=== PATIENT | male | born 1970 | race Caucasian/White ===

== ENCOUNTER 2016-08-31 16:03 | Inpatient (IN) | payer MEDICARE, MEDICAID ==
[~2016-08-31] VITALS: Ht 182.9 cm; Wt 94.6 kg
[~2016-08-31 16:03] MED LIST: METF500T4 PO; METO25 PO; OLAN5Z PO
[2016-08-31] MEDS ORDERED: OLANZapine 5 MG RAPDIS TABLET PO PRN (18:00)
[2016-08-31] MEDS ORDERED: LOPERAMIDE HCL 2 MG CAPSULE PO PRN (18:00)
[2016-08-31] MEDS ORDERED: MAGNESIUM HYDROXIDE SUSPENSION 30 ML UDCUP PO PRN (18:00)
[2016-08-31] MEDS ORDERED: ZOLPIDEM TARTRATE 10 MG TABLET PO PRN (18:00)
[2016-08-31] MEDS ORDERED: MAG HYDROX/AL HYDROX/SIMETH ES 30 ML SUSPENSION UDCUP PO PRN (18:00)
[2016-08-31] MEDS ORDERED: GuaiFENesin/D-METHORPHAN [SUGAR-FREE] 200-20MG/10 ML SYRUP UDCUP PO PRN (18:00)
[2016-08-31] MEDS ORDERED: HydrOXYzine PAMOATE 50 MG CAPSULE PO PRN (18:00)
[2016-08-31] MEDS ORDERED: PROMETHAZINE HCL 25 MG TABLET PO PRN (18:00)
[2016-08-31] MEDS ORDERED: ACETAMINOPHEN 325 MG TABLET PO PRN (18:00)
[2016-08-31] MEDS ORDERED: TUBERCULIN, PURIFIED PROTEIN DERIVATIVE 5 TU/0.1 ML SYG ID ONE (18:00)
[2016-08-31] MEDS ORDERED: PNEUMOCOCCAL VACCINE POLYVALENT 0.5 ML VIAL [PPSV23] IM ONE (18:15)
[2016-08-31] MEDS ORDERED: INFLUENZA VIRUS VACCINE QVS 2016-17 (3YR+)/PF 60 MCG/0.5 ML SYRINGE IM ONE (18:15)
[2016-08-31 19:30] VITALS: BP 111/70
[2016-08-31] MEDS: THIAMINE HCL 100 MG TABLET PO SCH (20:27)
[2016-08-31] MEDS ORDERED: OLANZapine 5 MG RAPDIS TABLET PO SCH (21:00)
[2016-09-01 08:04] LABS: BASOPHILS # (AUTO) 0.04 K/uL (0.00-0.20); BASOPHILS % (AUTO) 1.2 % (0.0-2.0); EOSINOPHILS # (AUTO) 0.12 K/uL (0.00-0.70); EOSINOPHILS % (AUTO) 3.31 % (1.0-6.0); HEMATOCRIT 43.4 % (41-53); HEMOGLOBIN 14.4 g/dL (13.5-17.5); LYMPHOCYTES # (AUTO) 1.8 K/uL (1.0-4.8); LYMPHOCYTES % (AUTO) 50.4 % (22.0-44.0); MEAN CORPUSCULAR HEMOGLOBIN 28.8 pg (26.0-34.0); MEAN CORPUSCULAR HGB CONC 33.1 G/dL (31.0-37.0); MEAN CORPUSCULAR VOLUME 87 fL (80-100); MONOCYTES # (AUTO) 0.5 K/uL (0.1-1.0); MONOCYTES % (AUTO) 13.8 % (2.0-9.0); NEUTROPHILS # (AUTO) 1.1 K/uL (1.8-7.7); NEUTROPHILS % (AUTO) 31.3 % (40.0-70.0); PLATELET COUNT (AUTO) 224 K/uL (150-450); WHITE BLOOD COUNT (AUTO) 3.5 K/uL (4.5-11.0)
[2016-09-01 08:11] VITALS: BP 135/70
[2016-09-01 08:40] LABS: HEMOGLOBIN A1C 5.4 % (4.5-6.2)
[2016-09-01 08:50] LABS: ALANINE AMINOTRANSFERASE 18 U/L (12-78); ANION GAP 9 mmol/L (8-16); ASPARTATE AMINOTRANSFERASE 15 U/L (15-37); BILIRUBIN,TOTAL 0.5 mg/dL (0.1-1.0); CALCIUM, TOTAL 8.9 mg/dL (8.8-10.5); CARBON DIOXIDE 28 mmol/L (22-29); CHLORIDE 104 mmol/L (98-107); CHOL/HDL RATIO 2.2 (4.2-7.3); CREATININE 0.75 mg/dL (0.60-1.30); GLOMERULAR FILTR. RATE CALC > 60 mL/min (>60); POTASSIUM 3.9 mmol/L (3.5-5.1); SODIUM SERUM 141 mmol/L (136-145); THYROID STIMULATING HORMONE 0.65 uIU/mL (0.36-3.74); UREA NITROGEN, BLOOD 13 mg/dL (7-18)
[2016-09-01] MEDS: MULTIVITAMINS WITH MINERALS, THERAPEUTIC TABLET PO SCH (10:12)
[2016-09-01] MEDS: NICOTINE 21 MG/24 HOUR PATCH TD SCH (10:12)
[2016-09-01] MEDS: FOLIC ACID 1 MG TABLET PO SCH (10:12)
[2016-09-01] MEDS: THIAMINE HCL 100 MG TABLET PO SCH ×2 (10:12→16:43)
[2016-09-01] MEDS: LORazepam 2 MG TABLET PO PRN (14:37)
[2016-09-01] MEDS ORDERED: ARIPiprazole ER SUSPENSION 400 MG PRE-FILLED DUAL CHAMBER SYRINGE IM ONE (15:45)
[2016-09-01] MEDS ORDERED: ARIPiprazole 5 MG TABLET PO PRN (15:45)
[2016-09-01 16:03] VITALS: BP 135/65
[2016-09-01 16:41] LABS: GLUCOSE,POINT OF CARE 113 MG/DL (70-110)
[2016-09-01] MEDS: DIVALPROEX SODIUM 500 MG ER TABLET PO SCH (20:36)
[2016-09-01] MEDS: ARIPiprazole 15 MG TABLET PO SCH (20:36)
[2016-09-02 00:46] VITALS: BP 140/68
[2016-09-02] MEDS: THIAMINE HCL 100 MG TABLET PO SCH ×2 (08:30→16:25)
[2016-09-02] MEDS: NICOTINE 21 MG/24 HOUR PATCH TD SCH (08:30)
[2016-09-02] MEDS: FOLIC ACID 1 MG TABLET PO SCH (08:30)
[2016-09-02] MEDS: MULTIVITAMINS WITH MINERALS, THERAPEUTIC TABLET PO SCH (08:30)
[2016-09-02 08:55] VITALS: BP 144/79
[2016-09-02] MEDS: LORazepam 2 MG TABLET PO PRN (13:49)
[2016-09-02 16:03] VITALS: BP 138/70
[2016-09-02] MEDS: DIVALPROEX SODIUM 500 MG ER TABLET PO SCH (20:55)
[2016-09-02] MEDS: ARIPiprazole 15 MG TABLET PO SCH (20:55)
[2016-09-03 01:18] VITALS: BP 137/81
[2016-09-03 08:08] VITALS: BP 169/81
[2016-09-03] MEDS: LORazepam 2 MG TABLET PO PRN (08:49)
[2016-09-03] MEDS: MULTIVITAMINS WITH MINERALS, THERAPEUTIC TABLET PO SCH (08:49)
[2016-09-03] MEDS: THIAMINE HCL 100 MG TABLET PO SCH (08:49)
[2016-09-03] MEDS: FOLIC ACID 1 MG TABLET PO SCH (08:49)
[2016-09-03] MEDS: NICOTINE 21 MG/24 HOUR PATCH TD SCH (08:50)
[2016-09-03 10:32] VITALS: BP 142/67
[2016-09-03] MEDS ORDERED: ARIP400S3 IM (13:36)
[2016-09-03] MEDS ORDERED: ARIP15TA3 PO ×2 (13:36→13:53)
[2016-09-03] MEDS ORDERED: DIVA500T52 PO ×2 (13:36→13:53)
[2016-09-29] MEDS ORDERED: ARIPiprazole ER SUSPENSION 400 MG PRE-FILLED DUAL CHAMBER SYRINGE IM SCH (09:00)
== END 2016-09-03 14:20 | disposition home or self-care (01) | DRG 885 ==
LOC: B2X 18:04
PROVIDERS: ADMIT Psychiatry & Neurology Psychiatry; ATTEND Psychiatry & Neurology Psychiatry
DX: F20.0 Paranoid schizophrenia (principal); F17.210 Nicotine dependence, cigarettes, uncomplicated; J44.9 Chronic obstructive pulmonary disease, unspecified; I10 Essential (primary) hypertension; E11.9 Type 2 diabetes mellitus without complications; E66.9 Obesity, unspecified; F15.10 Other stimulant abuse, uncomplicated; K59.00 Constipation, unspecified; G47.00 Insomnia, unspecified; F12.90 Cannabis use, unspecified, uncomplicated; Z68.28 Body mass index [BMI] 28.0-28.9, adult; Z72.89 Other problems related to lifestyle; Z88.8 Allergy status to other drugs, medicaments and biological substances; Z91.19 Patient's noncompliance with other medical treatment and regimen; Z71.6 Tobacco abuse counseling; Z71.51 Drug abuse counseling and surveillance of drug abuser; Z71.41 Alcohol abuse counseling and surveillance of alcoholic; Z79.899 Other long term (current) drug therapy; Z28.21 Immunization not carried out because of patient refusal
CPT/HCPCS: 82962; 83036; 84439; 84443; 86592; J0401

== ENCOUNTER 2016-12-07 19:45 | Inpatient (IN) | payer MEDICARE, MEDICAID ==
[~2016-12-07] VITALS: Ht 182.9 cm; Wt 93.0 kg
[~2016-12-07 19:45] MED LIST changes: +ARIP15TA3 PO; +ARIP400S3 IM; +DIVA500T52 PO; -METF500T4 PO; -METO25 PO; -OLAN5Z PO
[2016-12-07 20:44] LABS: BASOPHILS % (AUTO) 0.4 % (0.0-2.0); EOSINOPHILS % (AUTO) 2.4 % (1.0-6.0); HEMATOCRIT 43.3 % (41-53); LYMPHOCYTES # (AUTO) 2.7 K/uL (1.0-4.8); LYMPHOCYTES % (AUTO) 31.7 % (22.0-44.0); MEAN CORPUSCULAR HEMOGLOBIN 28.8 pg (26.0-34.0); MEAN CORPUSCULAR HGB CONC 32.3 G/dL (31.0-37.0); MEAN CORPUSCULAR VOLUME 89 fL (80-100); MONOCYTES # (AUTO) 0.7 K/uL (0.1-1.0); MONOCYTES % (AUTO) 7.8 % (2.0-9.0); NEUTROPHILS % (AUTO) 57.7 % (40.0-70.0); PLATELET COUNT (AUTO) 240 K/uL (150-450); RED BLOOD CELL COUNT(AUTO) 4.86 MIL/uL (4.50-5.90); RED CELL DISTRIBUTION WIDTH 15.7 % (11.5-14.5); WHITE BLOOD COUNT (AUTO) 8.6 K/uL (4.5-11.0)
[2016-12-07 20:54] LABS: ANION GAP 5 mmol/L (8-16); CALCIUM, TOTAL 8.8 mg/dL (8.8-10.5); CARBON DIOXIDE 30 mmol/L (22-29); CHLORIDE 105 mmol/L (98-107); CREATININE 0.98 mg/dL (0.60-1.30); GLOMERULAR FILTR. RATE CALC > 60 mL/min (>60); POTASSIUM 4.4 mmol/L (3.5-5.1); SODIUM SERUM 140 mmol/L (136-145); UREA NITROGEN, BLOOD 11 mg/dL (7-18)
[2016-12-07 21:00] LABS: ALANINE AMINOTRANSFERASE 23 U/L (12-78); ALBUMIN 3.5 g/dL (3.4-5.0); ASPARTATE AMINOTRANSFERASE 18 U/L (15-37); BILIRUBIN,TOTAL 0.3 mg/dL (0.1-1.0); TOTAL PROTEIN, SERUM 7.6 g/dL (6.4-8.2)
[2016-12-07] MEDS ORDERED: PERMETHRIN 5% 60 GM CREAM TP ONE (21:45)
[2016-12-07] MEDS ORDERED: OLANZapine 5 MG RAPDIS TABLET PO PRN (22:00)
[2016-12-07] MEDS ORDERED: LORazepam 2 MG TABLET PO PRN (22:00)
[2016-12-07] MEDS ORDERED: ZOLPIDEM TARTRATE 10 MG TABLET PO PRN (22:00)
[2016-12-07 22:37] LABS: GLUCOSE,POINT OF CARE 101 MG/DL (70-110)
[2016-12-07 22:40] VITALS: BP 148/77
[2016-12-07] MEDS ORDERED: PNEUMOCOCCAL VACCINE POLYVALENT 0.5 ML VIAL [PPSV23] IM ONE (23:00)
[2016-12-08] MEDS ORDERED: ONDANSETRON HCL 4 MG TABLET PO PRN (08:00)
[2016-12-08] MEDS ORDERED: ALBUTEROL SULFATE HFA 90 MCG/PUFF 8 GM INHALER IH PRN (08:00)
[2016-12-08] MEDS ORDERED: PETROLATUM,WHITE 71 GM JELLY TP PRN (08:00)
[2016-12-08] MEDS ORDERED: BENZOCAINE/MENTHOL LOZENGE MM PRN (08:00)
[2016-12-08] MEDS ORDERED: IBUPROFEN 600 MG TABLET PO PRN (08:00)
[2016-12-08] MEDS ORDERED: MAG HYDROX/AL HYDROX/SIMETH ES 30 ML SUSPENSION UDCUP PO PRN (08:00)
[2016-12-08] MEDS ORDERED: MAGNESIUM HYDROXIDE SUSPENSION 30 ML UDCUP PO PRN (08:00)
[2016-12-08] MEDS ORDERED: CloNIDine HCL 0.1 MG TABLET PO PRN (08:00)
[2016-12-08] MEDS ORDERED: LOPERAMIDE HCL 2 MG CAPSULE PO PRN (08:00)
[2016-12-08] MEDS ORDERED: BACITRACIN 28.4 GM OINTMENT TP PRN (08:00)
[2016-12-08] MEDS ORDERED: ACETAMINOPHEN 325 MG TABLET PO PRN (08:00)
[2016-12-08 08:28] VITALS: BP 135/78
[2016-12-08] MEDS ORDERED: GuaiFENesin/D-METHORPHAN [SUGAR-FREE] 200-20MG/10 ML SYRUP UDCUP PO PRN (09:30)
[2016-12-08] MEDS ORDERED: HydrOXYzine PAMOATE 50 MG CAPSULE PO PRN (09:30)
[2016-12-08 16:10] VITALS: BP 138/83
[2016-12-08] MEDS: THIAMINE HCL 100 MG TABLET PO SCH (16:48)
[2016-12-08] MEDS ORDERED: ARIPiprazole 15 MG TABLET PO SCH (21:00)
[2016-12-08] MEDS ORDERED: DIVALPROEX SODIUM 500 MG ER TABLET PO SCH (21:00)
[2016-12-09 06:02] VITALS: BP 146/70
[2016-12-09] MEDS: THIAMINE HCL 100 MG TABLET PO SCH (09:00)
[2016-12-09] MEDS ORDERED: MULTIVITAMINS WITH MINERALS, THERAPEUTIC TABLET PO SCH (09:00)
[2016-12-09] MEDS ORDERED: FOLIC ACID 1 MG TABLET PO SCH (09:00)
[2016-12-09] MEDS ORDERED: NALTREXONE HCL 50 MG TABLET PO SCH (09:00)
== END 2016-12-09 10:20 | disposition left against medical advice (07) | DRG 885 ==
LOC: EMS 19:48 → B2X 21:12
PROVIDERS: ADMIT Psychiatry & Neurology Psychiatry; ATTEND Psychiatry & Neurology Psychiatry
DX: F20.0 Paranoid schizophrenia (principal); G93.41 Metabolic encephalopathy; F19.20 Other psychoactive substance dependence, uncomplicated; R45.851 Suicidal ideations; F17.200 Nicotine dependence, unspecified, uncomplicated; J44.9 Chronic obstructive pulmonary disease, unspecified; I10 Essential (primary) hypertension; E11.9 Type 2 diabetes mellitus without complications; K59.00 Constipation, unspecified; F10.20 Alcohol dependence, uncomplicated; Y90.0 Blood alcohol level of less than 20 mg/100 ml; G47.00 Insomnia, unspecified; Z91.14 Patient's other noncompliance with medication regimen; B86 Scabies
CPT/HCPCS: 82962; 99285; G0480

== ENCOUNTER 2017-01-16 14:26 | Inpatient (IN) | payer MEDICARE, MEDICAID ==
[~2017-01-16] VITALS: Ht 182.9 cm; Wt 90.9 kg
[2017-01-16 14:41] LABS: GLUCOSE,POINT OF CARE 210 MG/DL (70-110)
[2017-01-16 15:11] LABS: BASOPHILS % (AUTO) 0.7 % (0.0-2.0); EOSINOPHILS % (AUTO) 2.4 % (1.0-6.0); HEMOGLOBIN 14.6 g/dL (13.5-17.5); LYMPHOCYTES % (AUTO) 34.1 % (22.0-44.0); MEAN CORPUSCULAR VOLUME 88 fL (80-100); MONOCYTES # (AUTO) 0.4 K/uL (0.1-1.0); NEUTROPHILS # (AUTO) 3.2 K/uL (1.8-7.7); NEUTROPHILS % (AUTO) 55.8 % (40.0-70.0); PLATELET COUNT (AUTO) 234 K/uL (150-450); RED BLOOD CELL COUNT(AUTO) 4.87 MIL/uL (4.50-5.90); RED CELL DISTRIBUTION WIDTH 14.9 % (11.5-14.5); WHITE BLOOD COUNT (AUTO) 5.8 K/uL (4.5-11.0)
[2017-01-16 15:29] LABS: ANION GAP 11 mmol/L (8-16); CALCIUM, TOTAL 9.1 mg/dL (8.8-10.5); CARBON DIOXIDE 29 mmol/L (22-29); CHLORIDE 106 mmol/L (98-107); CREATININE 0.91 mg/dL (0.60-1.30); GLOMERULAR FILTR. RATE CALC > 60 mL/min (>60); POTASSIUM 3.6 mmol/L (3.5-5.1); SODIUM SERUM 146 mmol/L (136-145); UREA NITROGEN, BLOOD 18 mg/dL (7-18)
[2017-01-16 15:35] LABS: ALANINE AMINOTRANSFERASE 18 U/L (12-78); ALBUMIN 3.4 g/dL (3.4-5.0); ASPARTATE AMINOTRANSFERASE 15 U/L (15-37); BILIRUBIN,TOTAL 0.5 mg/dL (0.1-1.0); TOTAL PROTEIN, SERUM 7.2 g/dL (6.4-8.2)
[2017-01-16] MEDS ORDERED: DiphenhydrAMINE HCL 50 MG/ML VIAL IM ONE (16:00)
[2017-01-16] MEDS ORDERED: HALOPERIDOL LACTATE 5 MG/ML VIAL IM ONE (16:00)
[2017-01-16] MEDS ORDERED: LORazepam 2 MG/ML VIAL IM ONE (16:00)
[2017-01-16] MEDS ORDERED: ZOLPIDEM TARTRATE 10 MG TABLET PO PRN (16:30)
[2017-01-16] MEDS ORDERED: HALOPERIDOL 5 MG TABLET PO PRN (16:30)
[2017-01-16] MEDS ORDERED: LORazepam 2 MG TABLET PO ONE (17:00)
[2017-01-16 21:20] VITALS: BP 118/61
[2017-01-16 21:26] VITALS: BP 118/61
[2017-01-16] MEDS ORDERED: PNEUMOCOCCAL VACCINE POLYVALENT 0.5 ML VIAL [PPSV23] IM ONE (22:15)
[2017-01-17] VITALS: BP 137/72
[2017-01-17 08:10] VITALS: BP 142/66
[2017-01-17] MEDS ORDERED: MAGNESIUM HYDROXIDE SUSPENSION 30 ML UDCUP PO PRN (09:30)
[2017-01-17] MEDS ORDERED: IBUPROFEN 600 MG TABLET PO PRN (09:30)
[2017-01-17] MEDS ORDERED: BENZOCAINE/MENTHOL LOZENGE MM PRN (09:30)
[2017-01-17] MEDS ORDERED: BACITRACIN 28.4 GM OINTMENT TP PRN (09:30)
[2017-01-17] MEDS ORDERED: ONDANSETRON HCL 4 MG TABLET PO PRN (09:30)
[2017-01-17] MEDS ORDERED: CloNIDine HCL 0.1 MG TABLET PO PRN (09:30)
[2017-01-17] MEDS ORDERED: LOPERAMIDE HCL 2 MG CAPSULE PO PRN (09:30)
[2017-01-17] MEDS ORDERED: ACETAMINOPHEN 325 MG TABLET PO PRN (09:30)
[2017-01-17] MEDS ORDERED: PETROLATUM,WHITE 71 GM JELLY TP PRN (09:30)
[2017-01-17] MEDS ORDERED: ALBUTEROL SULFATE HFA 90 MCG/PUFF 8 GM INHALER IH PRN (09:30)
[2017-01-17] MEDS ORDERED: MAG HYDROX/AL HYDROX/SIMETH ES 30 ML SUSPENSION UDCUP PO PRN (09:30)
[2017-01-17 16:20] VITALS: BP 107/65
[2017-01-17] MEDS: ARIPiprazole 15 MG TABLET PO SCH (21:00)
[2017-01-17] MEDS: DIVALPROEX SODIUM 500 MG ER TABLET PO SCH (21:31)
[2017-01-18 06:45] VITALS: BP 105/65
[2017-01-18] MEDS: LORazepam 2 MG TABLET PO PRN ×2 (06:45→14:57)
[2017-01-18 16:15] VITALS: BP 132/69
[2017-01-18] MEDS ORDERED: SULFAMETHOX/TRIMETH DS 800-160 MG/TABLET PO SCH (17:00)
[2017-01-18] MEDS ORDERED: CEPHALEXIN MONOHYDRATE 500 MG CAPSULE PO SCH (17:00)
[2017-01-18] MEDS: DIVALPROEX SODIUM 500 MG ER TABLET PO SCH (20:57)
[2017-01-18] MEDS: ARIPiprazole 15 MG TABLET PO SCH (20:57)
[2017-01-19 05:57] VITALS: BP 140/72
[2017-01-19] MEDS: LORazepam 2 MG TABLET PO PRN (11:20)
[2017-01-19] MEDS ORDERED: ARIP15TA3 PO (13:47)
[2017-01-19] MEDS ORDERED: DIVA500T69 PO (13:47)
== END 2017-01-19 15:00 | disposition home or self-care (01) | DRG 885 ==
LOC: EMS 14:29 → B2X 16:51
PROVIDERS: ADMIT Psychiatry & Neurology Psychiatry; ATTEND Psychiatry & Neurology Psychiatry
PROC: 3E0234Z Introduction of Serum, Toxoid and Vaccine into Muscle, Percutaneous Approach (ICD-10-PCS; principal; 2017-01-16)
DX: F25.9 Schizoaffective disorder, unspecified (principal); E87.1 Hypo-osmolality and hyponatremia; J44.9 Chronic obstructive pulmonary disease, unspecified; I10 Essential (primary) hypertension; F12.90 Cannabis use, unspecified, uncomplicated; G47.00 Insomnia, unspecified; K59.00 Constipation, unspecified; R73.9 Hyperglycemia, unspecified; F15.10 Other stimulant abuse, uncomplicated; F22 Delusional disorders; Z59.0 Homelessness; Z88.8 Allergy status to other drugs, medicaments and biological substances; Z71.6 Tobacco abuse counseling; Z71.51 Drug abuse counseling and surveillance of drug abuser; Z28.21 Immunization not carried out because of patient refusal; E78.00 Pure hypercholesterolemia, unspecified; F17.210 Nicotine dependence, cigarettes, uncomplicated
CPT/HCPCS: 82962; 96372; 99285; G0480; J1200; J1630; J2060

== ENCOUNTER 2017-05-03 18:57 | Emergency (ER) | payer MEDICARE, MEDICAID ==
[~2017-05-03 18:57] MED LIST changes: +ARIP15TA2 PO; -ARIP15TA3 PO; -ARIP400S3 IM; -DIVA500T52 PO; +DIVA500T69 PO; +LISI-661 PO
== END 2017-05-03 20:09 | disposition left against medical advice (07) ==
LOC: EMS 19:00
DX: Z00.00 Encounter for general adult medical examination without abnormal findings (principal); Z53.21 Procedure and treatment not carried out due to patient leaving prior to being seen by health care provider

== ENCOUNTER 2017-05-15 11:48 | Inpatient (IN) | payer MEDICARE, MEDICAID ==
[~2017-05-15] VITALS: Ht 182.9 cm; Wt 94.1 kg
[2017-05-15 13:07] VITALS: BP 144/73
[2017-05-15] MEDS ORDERED: PNEUMOCOCCAL VACCINE POLYVALENT 0.5 ML VIAL [PPSV23] IM ONE (13:30)
[2017-05-15] MEDS ORDERED: INFLUENZA VIRUS VACCINE QVS 2017-18 (3YR+)/PF 60 MCG/0.5 ML SYRINGE IM ONE (13:30)
[2017-05-15 16:00] VITALS: BP 134/68
[2017-05-15] MEDS: LORazepam 2 MG TABLET PO PRN (17:09)
[2017-05-15] MEDS: DIVALPROEX SODIUM 500 MG ER TABLET PO SCH (20:17)
[2017-05-15] MEDS: ZOLPIDEM TARTRATE 10 MG TABLET PO PRN (20:18)
[2017-05-15] MEDS ORDERED: ARIPiprazole 15 MG TABLET PO SCH (21:00)
[2017-05-16 02:26] VITALS: BP 128/77
[2017-05-16 07:28] LABS: BASOPHILS # (AUTO) 0.04 K/uL (0.00-0.20); BASOPHILS % (AUTO) 0.8 % (0.0-2.0); EOSINOPHILS # (AUTO) 0.22 K/uL (0.00-0.70); EOSINOPHILS % (AUTO) 4.55 % (1.0-6.0); HEMATOCRIT 45.1 % (41-53); HEMOGLOBIN 15.1 g/dL (13.5-17.5); LYMPHOCYTES # (AUTO) 1.7 K/uL (1.0-4.8); LYMPHOCYTES % (AUTO) 35.5 % (22.0-44.0); MEAN CORPUSCULAR HEMOGLOBIN 30.8 pg (26.0-34.0); MEAN CORPUSCULAR HGB CONC 33.4 G/dL (31.0-37.0); MEAN CORPUSCULAR VOLUME 92 fL (80-100); MONOCYTES # (AUTO) 0.5 K/uL (0.1-1.0); MONOCYTES % (AUTO) 9.6 % (2.0-9.0); NEUTROPHILS # (AUTO) 2.4 K/uL (1.8-7.7); NEUTROPHILS % (AUTO) 49.6 % (40.0-70.0); PLATELET COUNT (AUTO) 183 K/uL (150-450); RED BLOOD CELL COUNT(AUTO) 4.89 MIL/uL (4.50-5.90); RED CELL DISTRIBUTION WIDTH 14.4 % (11.5-14.5); WHITE BLOOD COUNT (AUTO) 4.9 K/uL (4.5-11.0)
[2017-05-16 07:55] LABS: ALANINE AMINOTRANSFERASE 24 U/L (12-78); ALBUMIN 3.3 g/dL (3.4-5.0); ANION GAP 5 mmol/L (8-16); ASPARTATE AMINOTRANSFERASE 19 U/L (15-37); BILIRUBIN,TOTAL 0.6 mg/dL (0.1-1.0); CALCIUM, TOTAL 8.6 mg/dL (8.8-10.5); CARBON DIOXIDE 29 mmol/L (22-29); CHLORIDE 107 mmol/L (98-107); CHOL/HDL RATIO 2.6 (4.2-7.3); CREATININE 0.75 mg/dL (0.60-1.30); GLOMERULAR FILTR. RATE CALC > 60 mL/min (>60); POTASSIUM 4.6 mmol/L (3.5-5.1); SODIUM SERUM 141 mmol/L (136-145); THYROID STIMULATING HORMONE 0.48 uIU/mL (0.36-3.74); TOTAL PROTEIN, SERUM 6.5 g/dL (6.4-8.2); UREA NITROGEN, BLOOD 18 mg/dL (7-18); VALPROIC ACID 31 mcg/mL (50-100)
[2017-05-16 07:58] LABS: APPEARANCE,URINE CLEAR (CLEAR); GLUCOSE, URINE (UA) NEGATIVE (NEGATIVE); KETONES,URINE NEGATIVE (NEGATIVE); LEUKOCYTE ESTERASE ,URINE NEGATIVE (NEGATIVE); OCCULT BLOOD,URINE NEGATIVE (NEGATIVE); PH,URINE 5.5 (5.0-8.0); PROTEIN,URINE NEGATIVE (NEGATIVE)
[2017-05-16 07:59] LABS: ADD UA MICROSCOPIC NO
[2017-05-16 08:00] VITALS: BP 132/65
[2017-05-16 08:02] LABS: HEMOGLOBIN A1C 5.6 % (4.5-6.2)
[2017-05-16] MEDS: HALOPERIDOL 5 MG TABLET PO PRN (10:08)
[2017-05-16] MEDS: LORazepam 2 MG TABLET PO PRN ×2 (10:08→17:22)
[2017-05-16] MEDS ORDERED: MAG HYDROX/AL HYDROX/SIMETH ES 30 ML SUSPENSION UDCUP PO PRN (14:30)
[2017-05-16] MEDS ORDERED: ONDANSETRON HCL 4 MG TABLET PO PRN (14:30)
[2017-05-16] MEDS ORDERED: BENZOCAINE/MENTHOL LOZENGE MM PRN (14:30)
[2017-05-16] MEDS ORDERED: LOPERAMIDE HCL 2 MG CAPSULE PO PRN (14:30)
[2017-05-16] MEDS ORDERED: ACETAMINOPHEN 325 MG TABLET PO PRN (14:30)
[2017-05-16] MEDS ORDERED: CloNIDine HCL 0.1 MG TABLET PO PRN (14:30)
[2017-05-16] MEDS ORDERED: ALBUTEROL SULFATE HFA 90 MCG/PUFF 8 GM INHALER IH PRN (14:30)
[2017-05-16] MEDS ORDERED: PETROLATUM,WHITE 71 GM JELLY TP PRN (14:30)
[2017-05-16] MEDS ORDERED: MAGNESIUM HYDROXIDE SUSPENSION 30 ML UDCUP PO PRN (14:30)
[2017-05-16] MEDS ORDERED: BACITRACIN 28.4 GM OINTMENT TP PRN (14:30)
[2017-05-16] MEDS ORDERED: IBUPROFEN 600 MG TABLET PO PRN (14:30)
[2017-05-16 16:00] VITALS: BP 124/72
[2017-05-16] MEDS: ZOLPIDEM TARTRATE 10 MG TABLET PO PRN (20:26)
[2017-05-16] MEDS: DIVALPROEX SODIUM 500 MG ER TABLET PO SCH (20:26)
[2017-05-17 03:50] VITALS: BP 128/73
[2017-05-17 08:26] VITALS: BP 136/84
[2017-05-17] MEDS: LORazepam 2 MG TABLET PO PRN ×2 (08:45→18:06)
[2017-05-17] MEDS: LISINOPRIL 5 MG TABLET PO SCH (08:45)
[2017-05-17] MEDS: ARIPiprazole 15 MG TABLET PO SCH (08:45)
[2017-05-17 16:00] VITALS: BP 140/78
[2017-05-17] MEDS: HALOPERIDOL 5 MG TABLET PO PRN (18:06)
[2017-05-17] MEDS: DIVALPROEX SODIUM 500 MG ER TABLET PO SCH (20:08)
[2017-05-17] MEDS: ZOLPIDEM TARTRATE 10 MG TABLET PO PRN (20:08)
[2017-05-18 06:38] VITALS: BP 125/61
[2017-05-18] MEDS: LISINOPRIL 5 MG TABLET PO SCH (08:18)
[2017-05-18] MEDS: LORazepam 2 MG TABLET PO PRN (08:18)
[2017-05-18] MEDS: ARIPiprazole 15 MG TABLET PO SCH (08:18)
[2017-05-18 08:42] VITALS: BP 146/68
[2017-05-18] MEDS ORDERED: ALBU8HFA IH (09:36)
== END 2017-05-18 11:00 | disposition home or self-care (01) | DRG 885 ==
LOC: B3A 13:00
PROVIDERS: ADMIT Psychiatry & Neurology Psychiatry; ATTEND Psychiatry & Neurology Psychiatry
DX: F25.9 Schizoaffective disorder, unspecified (principal); Z59.0 Homelessness; E78.5 Hyperlipidemia, unspecified; F12.90 Cannabis use, unspecified, uncomplicated; F17.210 Nicotine dependence, cigarettes, uncomplicated; G47.00 Insomnia, unspecified; I10 Essential (primary) hypertension; J44.9 Chronic obstructive pulmonary disease, unspecified; K21.9 Gastro-esophageal reflux disease without esophagitis; Z88.8 Allergy status to other drugs, medicaments and biological substances; Z71.6 Tobacco abuse counseling; Z71.51 Drug abuse counseling and surveillance of drug abuser; Z79.51 Long term (current) use of inhaled steroids; Z79.899 Other long term (current) drug therapy; Z28.21 Immunization not carried out because of patient refusal
CPT/HCPCS: 80307; 83036; 84439; 84443

== ENCOUNTER 2017-06-30 15:47 | Inpatient (IN) | payer MEDICARE, MEDICAID ==
[~2017-06-30] VITALS: Ht 182.9 cm; Wt 87.5 kg
[~2017-06-30 15:47] MED LIST changes: +ALBU8HFA IH
[2017-06-30 16:07] VITALS: BP 165/87
[2017-06-30] MEDS ORDERED: HALOPERIDOL 5 MG TABLET PO PRN (16:15)
[2017-06-30] MEDS ORDERED: ZOLPIDEM TARTRATE 10 MG TABLET PO PRN (16:15)
[2017-06-30] MEDS ORDERED: LISINOPRIL 5 MG TABLET PO ONE (16:45)
[2017-06-30 17:00] VITALS: BP 158/82
[2017-06-30] MEDS ORDERED: ALBUTEROL SULFATE HFA 90 MCG/PUFF 8 GM INHALER IH PRN (17:15)
[2017-06-30] MEDS ORDERED: PNEUMOCOCCAL VACCINE POLYVALENT 0.5 ML VIAL [PPSV23] IM ONE (18:30)
[2017-06-30] MEDS ORDERED: INFLUENZA VIRUS VACCINE QVS 2017-18 (3YR+)/PF 60 MCG/0.5 ML SYRINGE IM ONE (18:30)
[2017-06-30] MEDS: DIVALPROEX SODIUM 500 MG ER TABLET PO SCH (20:37)
[2017-07-01 08:37] LABS: HEMOGLOBIN A1C 5.7 % (4.5-6.2)
[2017-07-01 08:38] LABS: ALANINE AMINOTRANSFERASE 22 U/L (12-78); ALBUMIN 3.1 g/dL (3.4-5.0); ANION GAP 5 mmol/L (8-16); ASPARTATE AMINOTRANSFERASE 11 U/L (15-37); BILIRUBIN,TOTAL 0.4 mg/dL (0.1-1.0); CALCIUM, TOTAL 8.8 mg/dL (8.8-10.5); CARBON DIOXIDE 30 mmol/L (22-29); CHLORIDE 104 mmol/L (98-107); CHOL/HDL RATIO 2.3 (4.2-7.3); CREATININE 0.82 mg/dL (0.60-1.30); GLOMERULAR FILTR. RATE CALC > 60 mL/min (>60); POTASSIUM 4.1 mmol/L (3.5-5.1); SODIUM SERUM 139 mmol/L (136-145); TOTAL PROTEIN, SERUM 6.9 g/dL (6.4-8.2); UREA NITROGEN, BLOOD 14 mg/dL (7-18); VALPROIC ACID 37 mcg/mL (50-100)
[2017-07-01 08:46] LABS: BASOPHILS % (AUTO) 0.9 % (0.0-2.0); EOSINOPHILS % (AUTO) 3.5 % (1.0-6.0); HEMOGLOBIN 15.1 g/dL (13.5-17.5); LYMPHOCYTES # (AUTO) 2.1 K/uL (1.0-4.8); LYMPHOCYTES % (AUTO) 34.8 % (22.0-44.0); MEAN CORPUSCULAR HEMOGLOBIN 30.8 pg (26.0-34.0); MEAN CORPUSCULAR HGB CONC 34.2 G/dL (31.0-37.0); MEAN CORPUSCULAR VOLUME 90 fL (80-100); MONOCYTES # (AUTO) 0.4 K/uL (0.1-1.0); MONOCYTES % (AUTO) 6.7 % (2.0-9.0); NEUTROPHILS # (AUTO) 3.3 K/uL (1.8-7.7); NEUTROPHILS % (AUTO) 54.1 % (40.0-70.0); PLATELET COUNT (AUTO) 230 K/uL (150-450); RED BLOOD CELL COUNT(AUTO) 4.89 MIL/uL (4.50-5.90); RED CELL DISTRIBUTION WIDTH 14.6 % (11.5-14.5)
[2017-07-01] MEDS ORDERED: LISINOPRIL 5 MG TABLET PO SCH (09:00)
[2017-07-01 09:25] VITALS: BP 142/88
[2017-07-01] MEDS: ARIPiprazole 15 MG TABLET PO SCH (09:26)
[2017-07-01] MEDS ORDERED: CloNIDine HCL 0.1 MG TABLET PO PRN (10:00)
[2017-07-01] MEDS ORDERED: ONDANSETRON HCL 4 MG TABLET PO PRN (10:00)
[2017-07-01] MEDS ORDERED: LOPERAMIDE HCL 2 MG CAPSULE PO PRN (10:00)
[2017-07-01] MEDS ORDERED: GuaiFENesin/D-METHORPHAN/PHENYLEPH 5 ML LIQUID ORAL.SYG PO PRN (10:00)
[2017-07-01] MEDS ORDERED: MAG HYDROX/AL HYDROX/SIMETH ES 30 ML SUSPENSION UDCUP PO PRN (10:00)
[2017-07-01] MEDS ORDERED: BACITRACIN 28.4 GM OINTMENT TP PRN (10:00)
[2017-07-01] MEDS ORDERED: ACETAMINOPHEN 325 MG TABLET PO PRN (10:00)
[2017-07-01] MEDS ORDERED: IBUPROFEN 600 MG TABLET PO PRN (10:00)
[2017-07-01] MEDS ORDERED: PETROLATUM,WHITE 71 GM JELLY TP PRN (10:00)
[2017-07-01] MEDS ORDERED: ALBUTEROL SULFATE HFA 90 MCG/PUFF 8 GM INHALER IH PRN (10:00)
[2017-07-01] MEDS ORDERED: BENZOCAINE/MENTHOL LOZENGE MM PRN (10:00)
[2017-07-01] MEDS ORDERED: MAGNESIUM HYDROXIDE SUSPENSION 30 ML UDCUP PO PRN (10:00)
[2017-07-01] MEDS: LORazepam 2 MG TABLET PO PRN (15:32)
[2017-07-01] MEDS: DIVALPROEX SODIUM 500 MG ER TABLET PO SCH (20:40)
[2017-07-02 09:20] VITALS: BP 144/69
[2017-07-02] MEDS: ARIPiprazole 15 MG TABLET PO SCH (09:21)
[2017-07-02] MEDS: OMEPRAZOLE 20 MG CAPSULE PO SCH (09:21)
[2017-07-02] MEDS: LISINOPRIL 20 MG TABLET PO SCH (09:21)
[2017-07-02 16:09] VITALS: BP 140/84
[2017-07-02] MEDS: DIVALPROEX SODIUM 500 MG ER TABLET PO SCH (20:52)
[2017-07-03 06:34] VITALS: BP 141/84
[2017-07-03] MEDS: ARIPiprazole 15 MG TABLET PO SCH (08:26)
[2017-07-03] MEDS: LISINOPRIL 20 MG TABLET PO SCH (08:26)
[2017-07-03] MEDS: OMEPRAZOLE 20 MG CAPSULE PO SCH (08:26)
[2017-07-03] MEDS: LORazepam 2 MG TABLET PO PRN (08:38)
[2017-07-03 08:41] VITALS: BP 132/60
[2017-07-03] MEDS ORDERED: DIVA500T52 PO (11:19)
[2017-07-03] MEDS ORDERED: ARIP15TA2 PO (11:29)
[2017-07-03] MEDS ORDERED: LISI-662 PO (11:32)
[2017-07-03] MEDS ORDERED: OMEP20 PO (11:33)
== END 2017-07-03 12:25 | disposition home or self-care (01) | DRG 885 ==
LOC: B2X 16:09
PROVIDERS: ADMIT Psychiatry & Neurology Psychiatry; ATTEND Psychiatry & Neurology Psychiatry
DX: F20.0 Paranoid schizophrenia (principal); Z59.0 Homelessness; F10.10 Alcohol abuse, uncomplicated; Z28.21 Immunization not carried out because of patient refusal; F12.90 Cannabis use, unspecified, uncomplicated; F15.10 Other stimulant abuse, uncomplicated; F17.200 Nicotine dependence, unspecified, uncomplicated; G47.00 Insomnia, unspecified; I10 Essential (primary) hypertension; J44.9 Chronic obstructive pulmonary disease, unspecified; K21.9 Gastro-esophageal reflux disease without esophagitis; K59.00 Constipation, unspecified; Z71.41 Alcohol abuse counseling and surveillance of alcoholic; Z71.6 Tobacco abuse counseling; Z56.0 Unemployment, unspecified
CPT/HCPCS: 83036; 84439; 84443

== ENCOUNTER 2017-08-04 14:15 | Emergency (ER) | payer OTHER ==
[~2017-08-04] VITALS: Ht 177.8 cm; Wt 82.3 kg
[~2017-08-04 14:15] MED LIST changes: -ALBU8HFA IH; +DIVA500T52 PO; -DIVA500T69 PO; -LISI-661 PO; +LISI-662 PO; +OMEP20 PO
[2017-08-04 14:41] VITALS: BP 127/80
[2017-08-04 14:44] LABS: BASOPHILS % (AUTO) 0.3 % (0.0-2.0); EOSINOPHILS % (AUTO) 1.6 % (1.0-6.0); HEMATOCRIT 40.2 % (41-53); HEMOGLOBIN 13.8 g/dL (13.5-17.5); LYMPHOCYTES # (AUTO) 1.6 K/uL (1.0-4.8); LYMPHOCYTES % (AUTO) 21.2 % (22.0-44.0); MEAN CORPUSCULAR HEMOGLOBIN 31.1 pg (26.0-34.0); MEAN CORPUSCULAR HGB CONC 34.5 G/dL (31.0-37.0); MEAN CORPUSCULAR VOLUME 90 fL (80-100); MONOCYTES # (AUTO) 0.4 K/uL (0.1-1.0); MONOCYTES % (AUTO) 4.7 % (2.0-9.0); NEUTROPHILS # (AUTO) 5.5 K/uL (1.8-7.7); NEUTROPHILS % (AUTO) 72.2 % (40.0-70.0); RED BLOOD CELL COUNT(AUTO) 4.44 MIL/uL (4.50-5.90); RED CELL DISTRIBUTION WIDTH 15.4 % (11.5-14.5)
[2017-08-04 14:54] LABS: ANION GAP 6 mmol/L (8-16); CARBON DIOXIDE 33 mmol/L (22-29); CHLORIDE 103 mmol/L (98-107); CREATININE 0.92 mg/dL (0.60-1.30); GLOMERULAR FILTR. RATE CALC > 60 mL/min (>60); GLUCOSE,RANDOM 123 mg/dL (70-110); SODIUM SERUM 142 mmol/L (136-145); UREA NITROGEN, BLOOD 12 mg/dL (7-18)
[2017-08-04 15:00] LABS: ALANINE AMINOTRANSFERASE 23 U/L (12-78); ALBUMIN 3.4 g/dL (3.4-5.0); ALKALINE PHOSPHATASE 74 U/L (46-116); ASPARTATE AMINOTRANSFERASE 17 U/L (15-37); BILIRUBIN,TOTAL 0.3 mg/dL (0.1-1.0); TOTAL PROTEIN, SERUM 7.2 g/dL (6.4-8.2)
[2017-08-04 15:18] LABS: PLATELET COUNT (AUTO) 236 K/uL (150-450)
== END 2017-08-04 17:14 | disposition left against medical advice (07) ==
LOC: EMS 14:16
DX: Z53.21 Procedure and treatment not carried out due to patient leaving prior to being seen by health care provider (principal)
CPT/HCPCS: 36415; 80053; 85025; 99281; G0480

== ENCOUNTER 2017-08-08 15:32 | Inpatient (IN) | payer MEDICARE, MEDICAID ==
[~2017-08-08] VITALS: Ht 182.9 cm; Wt 91.8 kg
[2017-08-08 17:58] VITALS: BP 150/89
[2017-08-08] MEDS ORDERED: HALOPERIDOL 5 MG TABLET PO PRN (18:00)
[2017-08-08] MEDS ORDERED: ZOLPIDEM TARTRATE 10 MG TABLET PO PRN (18:00)
[2017-08-08] MEDS ORDERED: PNEUMOCOCCAL VACCINE POLYVALENT 0.5 ML VIAL [PPSV23] IM ONE (18:15)
[2017-08-08] MEDS ORDERED: INFLUENZA VIRUS VACCINE QVS 2017-18 (3YR+)/PF 60 MCG/0.5 ML SYRINGE IM ONE (18:15)
[2017-08-08 18:59] VITALS: BP 155/89
[2017-08-08] MEDS: LORazepam 2 MG TABLET PO PRN (19:10)
[2017-08-08] MEDS: ARIPiprazole 15 MG TABLET PO SCH (19:10)
[2017-08-08] MEDS: DIVALPROEX SODIUM 500 MG ER TABLET PO SCH (20:01)
[2017-08-09 06:12] VITALS: BP 132/83
[2017-08-09 08:20] LABS: BASOPHILS % (AUTO) 0.8 % (0.0-2.0); EOSINOPHILS % (AUTO) 4.3 % (1.0-6.0); HEMATOCRIT 41.1 % (41-53); HEMOGLOBIN 13.9 g/dL (13.5-17.5); LYMPHOCYTES # (AUTO) 1.9 K/uL (1.0-4.8); LYMPHOCYTES % (AUTO) 34.8 % (22.0-44.0); MEAN CORPUSCULAR HEMOGLOBIN 31.2 pg (26.0-34.0); MEAN CORPUSCULAR HGB CONC 33.8 G/dL (31.0-37.0); MEAN CORPUSCULAR VOLUME 92 fL (80-100); MONOCYTES # (AUTO) 0.4 K/uL (0.1-1.0); MONOCYTES % (AUTO) 7.5 % (2.0-9.0); NEUTROPHILS # (AUTO) 2.9 K/uL (1.8-7.7); NEUTROPHILS % (AUTO) 52.6 % (40.0-70.0); PLATELET COUNT (AUTO) 225 K/uL (150-450); RED BLOOD CELL COUNT(AUTO) 4.46 MIL/uL (4.50-5.90); RED CELL DISTRIBUTION WIDTH 15.1 % (11.5-14.5)
[2017-08-09 08:30] VITALS: BP 147/70
[2017-08-09] MEDS: ARIPiprazole 15 MG TABLET PO SCH (08:50)
[2017-08-09] MEDS: LISINOPRIL 20 MG TABLET PO SCH (08:50)
[2017-08-09] MEDS: OMEPRAZOLE 20 MG CAPSULE PO SCH (08:50)
[2017-08-09 09:02] LABS: HEMOGLOBIN A1C 5.6 % (4.5-6.2)
[2017-08-09 09:05] LABS: AMPHET/METH SCREEN,URINE NEGATIVE (NEGATIVE); BARBITURATE SCREEN, URINE NEGATIVE (NEGATIVE); BENZODIAZEPINES SCREEN,URINE NEGATIVE (NEGATIVE); BILIRUBIN,URINE NEGATIVE (NEGATIVE); CANNABINOID SCREEN,URINE NEGATIVE (NEGATIVE); COCAINE SCREEN,URINE NEGATIVE (NEGATIVE); GLUCOSE, URINE (UA) NEGATIVE (NEGATIVE); KETONES,URINE NEGATIVE (NEGATIVE); LEUKOCYTE ESTERASE ,URINE NEGATIVE (NEGATIVE); METHADONE SCREEN, URINE NEGATIVE (NEGATIVE); NITRATE,URINE NEGATIVE (NEGATIVE); OCCULT BLOOD,URINE NEGATIVE (NEGATIVE); OPIATE SCREEN,URINE NEGATIVE (NEGATIVE); PROTEIN,URINE NEGATIVE (NEGATIVE); UROBILINOGEN,URINE 0.2 mg/dL (<=1.0)
[2017-08-09 09:07] LABS: PHENCYCLIDINE SCREEN,URINE NEGATIVE (NEGATIVE)
[2017-08-09 09:23] LABS: ALANINE AMINOTRANSFERASE 23 U/L (12-78); ALBUMIN 3.2 g/dL (3.4-5.0); ALKALINE PHOSPHATASE 70 U/L (46-116); ANION GAP 5 mmol/L (8-16); ASPARTATE AMINOTRANSFERASE 16 U/L (15-37); BILIRUBIN,TOTAL 0.4 mg/dL (0.1-1.0); CALCIUM, TOTAL 8.5 mg/dL (8.8-10.5); CARBON DIOXIDE 29 mmol/L (22-29); CHLORIDE 104 mmol/L (98-107); CHOL/HDL RATIO 2.3 (4.2-7.3); CHOLESTEROL 179 mg/dL (131-200); CREATININE 0.84 mg/dL (0.60-1.30); FREE T4 (FREE THYROXINE) 0.89 ng/dL (0.76-1.46); GLOMERULAR FILTR. RATE CALC > 60 mL/min (>60); GLUCOSE,RANDOM 94 mg/dL (70-110); HDL CHOLESTEROL 78 mg/dL (40-60); LDL CHOL (CALC.) 93 mg/dL (0-130); SODIUM SERUM 138 mmol/L (136-145); THYROID STIMULATING HORMONE 0.55 uIU/mL (0.36-3.74); TOTAL PROTEIN, SERUM 6.9 g/dL (6.4-8.2); TRIGLYCERIDES 41 mg/dL (15-150); UREA NITROGEN, BLOOD 15 mg/dL (7-18)
[2017-08-09 09:32] LABS: APPEARANCE,URINE N (CLEAR)
[2017-08-09] MEDS: LORazepam 2 MG TABLET PO PRN (15:13)
[2017-08-09 16:15] VITALS: BP 143/83
[2017-08-09] MEDS ORDERED: PETROLATUM,WHITE 71 GM JELLY TP PRN (19:45)
[2017-08-09] MEDS ORDERED: IBUPROFEN 600 MG TABLET PO PRN (19:45)
[2017-08-09] MEDS ORDERED: ACETAMINOPHEN 325 MG TABLET PO PRN (19:45)
[2017-08-09] MEDS ORDERED: BACITRACIN 28.4 GM OINTMENT TP PRN (19:45)
[2017-08-09] MEDS ORDERED: ALBUTEROL SULFATE HFA 90 MCG/PUFF 8 GM INHALER IH PRN (19:45)
[2017-08-09] MEDS ORDERED: MAG HYDROX/AL HYDROX/SIMETH ES 30 ML SUSPENSION UDCUP PO PRN (19:45)
[2017-08-09] MEDS ORDERED: ONDANSETRON HCL 4 MG TABLET PO PRN (19:45)
[2017-08-09] MEDS ORDERED: MAGNESIUM HYDROXIDE SUSPENSION 30 ML UDCUP PO PRN (19:45)
[2017-08-09] MEDS ORDERED: CloNIDine HCL 0.1 MG TABLET PO PRN (19:45)
[2017-08-09] MEDS ORDERED: LOPERAMIDE HCL 2 MG CAPSULE PO PRN (19:45)
[2017-08-09] MEDS ORDERED: BENZOCAINE/MENTHOL LOZENGE MM PRN (19:45)
[2017-08-09] MEDS: DIVALPROEX SODIUM 500 MG ER TABLET PO SCH (20:32)
[2017-08-10 08:21] VITALS: BP 125/64
[2017-08-10] MEDS: LISINOPRIL 20 MG TABLET PO SCH (08:57)
[2017-08-10] MEDS: OMEPRAZOLE 20 MG CAPSULE PO SCH (08:57)
[2017-08-10] MEDS: ARIPiprazole 15 MG TABLET PO SCH (08:57)
[2017-08-10] MEDS: LORazepam 2 MG TABLET PO PRN (10:20)
[2017-08-10 16:00] VITALS: BP 129/77
[2017-08-10] MEDS: DIVALPROEX SODIUM 500 MG ER TABLET PO SCH (20:27)
[2017-08-11 06:25] VITALS: BP 125/61
[2017-08-11 08:26] LABS: BASOPHILS # (AUTO) 0.03 K/uL (0.00-0.20); BASOPHILS % (AUTO) 0.5 % (0.0-2.0); EOSINOPHILS # (AUTO) 0.18 K/uL (0.00-0.70); EOSINOPHILS % (AUTO) 3.27 % (1.0-6.0); HEMATOCRIT 44.7 % (41-53); LYMPHOCYTES # (AUTO) 1.7 K/uL (1.0-4.8); LYMPHOCYTES % (AUTO) 29.5 % (22.0-44.0); MEAN CORPUSCULAR HEMOGLOBIN 30.4 pg (26.0-34.0); MEAN CORPUSCULAR HGB CONC 33.7 G/dL (31.0-37.0); MEAN CORPUSCULAR VOLUME 90 fL (80-100); MONOCYTES # (AUTO) 0.3 K/uL (0.1-1.0); MONOCYTES % (AUTO) 5.9 % (2.0-9.0); NEUTROPHILS # (AUTO) 3.4 K/uL (1.8-7.7); NEUTROPHILS % (AUTO) 60.9 % (40.0-70.0); PLATELET COUNT (AUTO) 233 K/uL (150-450); RED BLOOD CELL COUNT(AUTO) 4.95 MIL/uL (4.50-5.90)
[2017-08-11 08:50] VITALS: BP 119/85
[2017-08-11] MEDS: LISINOPRIL 20 MG TABLET PO SCH (08:52)
[2017-08-11] MEDS: ARIPiprazole 15 MG TABLET PO SCH (08:52)
[2017-08-11] MEDS: OMEPRAZOLE 20 MG CAPSULE PO SCH (08:52)
[2017-08-11 09:14] LABS: LITHIUM < 0.20 mmol/L (0.60-1.20)
[2017-08-11 09:32] LABS: ALANINE AMINOTRANSFERASE 21 U/L (12-78); ALBUMIN 3.4 g/dL (3.4-5.0); ALKALINE PHOSPHATASE 72 U/L (46-116); ANION GAP 7 mmol/L (8-16); ASPARTATE AMINOTRANSFERASE 11 U/L (15-37); BILIRUBIN,TOTAL 0.9 mg/dL (0.1-1.0); CALCIUM, TOTAL 8.8 mg/dL (8.8-10.5); CARBON DIOXIDE 29 mmol/L (22-29); CHLORIDE 102 mmol/L (98-107); CREATININE 0.77 mg/dL (0.60-1.30); GLOMERULAR FILTR. RATE CALC > 60 mL/min (>60); GLUCOSE,RANDOM 100 mg/dL (70-110); POTASSIUM 3.8 mmol/L (3.5-5.1); SODIUM SERUM 138 mmol/L (136-145); TOTAL PROTEIN, SERUM 7.5 g/dL (6.4-8.2); UREA NITROGEN, BLOOD 15 mg/dL (7-18); VALPROIC ACID 63 mcg/mL (50-100)
[2017-08-11] MEDS: LORazepam 2 MG TABLET PO PRN ×2 (11:00→17:12)
[2017-08-11 16:33] VITALS: BP 129/78
[2017-08-11] MEDS: DIVALPROEX SODIUM 500 MG ER TABLET PO SCH (20:30)
[2017-08-12 04:14] VITALS: BP 120/86
[2017-08-12 08:54] VITALS: BP 121/71
[2017-08-12] MEDS: ARIPiprazole 10 MG TABLET PO SCH (08:54)
[2017-08-12] MEDS: OMEPRAZOLE 20 MG CAPSULE PO SCH (08:54)
[2017-08-12] MEDS: LISINOPRIL 20 MG TABLET PO SCH (08:54)
[2017-08-12] MEDS: LORazepam 2 MG TABLET PO PRN ×2 (12:28→16:30)
[2017-08-12 16:22] VITALS: BP 135/77
[2017-08-12] MEDS: DIVALPROEX SODIUM 500 MG ER TABLET PO SCH (20:37)
[2017-08-13 04:46] VITALS: BP 108/62
[2017-08-13 08:55] VITALS: BP 117/7
[2017-08-13] MEDS: LISINOPRIL 20 MG TABLET PO SCH (08:56)
[2017-08-13] MEDS: ARIPiprazole 10 MG TABLET PO SCH (08:57)
[2017-08-13] MEDS: OMEPRAZOLE 20 MG CAPSULE PO SCH (08:57)
[2017-08-13] MEDS: LORazepam 2 MG TABLET PO PRN ×2 (09:40→14:13)
[2017-08-13 16:04] VITALS: BP 127/70
[2017-08-13] MEDS: DIVALPROEX SODIUM 500 MG ER TABLET PO SCH (20:26)
[2017-08-14] VITALS: BP_SYST 145; BP_SYST 158; BP_DIAS 78
[2017-08-14] MEDS: LISINOPRIL 20 MG TABLET PO SCH (08:15)
[2017-08-14] MEDS: ARIPiprazole 10 MG TABLET PO SCH (08:15)
[2017-08-14] MEDS: OMEPRAZOLE 20 MG CAPSULE PO SCH (08:20)
[2017-08-14 08:21] VITALS: BP 119/64
== END 2017-08-14 10:00 | disposition home or self-care (01) | DRG 885 ==
LOC: B3A 17:00 → B2X 21:15
PROVIDERS: ADMIT Psychiatry & Neurology Psychiatry; ATTEND Psychiatry & Neurology Psychiatry
DX: F20.0 Paranoid schizophrenia (principal); E11.9 Type 2 diabetes mellitus without complications; F41.9 Anxiety disorder, unspecified; I10 Essential (primary) hypertension; J44.9 Chronic obstructive pulmonary disease, unspecified; K21.9 Gastro-esophageal reflux disease without esophagitis; K59.00 Constipation, unspecified; F19.10 Other psychoactive substance abuse, uncomplicated; F17.200 Nicotine dependence, unspecified, uncomplicated; F15.10 Other stimulant abuse, uncomplicated; G47.00 Insomnia, unspecified; Z88.8 Allergy status to other drugs, medicaments and biological substances; Z59.0 Homelessness; Z79.899 Other long term (current) drug therapy; Z28.21 Immunization not carried out because of patient refusal
CPT/HCPCS: 80307; 83036; 84439; 84443

== ENCOUNTER 2017-09-21 06:30 | Emergency (ER) | payer MEDICARE, MEDICAID | END 2017-09-21 07:08 | disposition left against medical advice (07) | LOC: EMS 06:31 | DX: Z00.00 Encounter for general adult medical examination without abnormal findings (principal); Z53.21 Procedure and treatment not carried out due to patient leaving prior to being seen by health care provider ==

== ENCOUNTER 2017-09-22 16:51 | Inpatient (IN) | payer MEDICARE, MEDICAID ==
[~2017-09-22] VITALS: Ht 182.9 cm; Wt 86.7 kg
[2017-09-22 17:21] LABS: AMPHET/METH SCREEN,URINE NEGATIVE (NEGATIVE); BARBITURATE SCREEN, URINE NEGATIVE (NEGATIVE); BENZODIAZEPINES SCREEN,URINE NEGATIVE (NEGATIVE); CANNABINOID SCREEN,URINE NEGATIVE (NEGATIVE); COCAINE SCREEN,URINE NEGATIVE (NEGATIVE); METHADONE SCREEN, URINE NEGATIVE (NEGATIVE); OPIATE SCREEN,URINE NEGATIVE (NEGATIVE)
[2017-09-22 17:22] LABS: PHENCYCLIDINE SCREEN,URINE NEGATIVE (NEGATIVE)
[2017-09-22 17:24] LABS: BASOPHILS % (AUTO) 0.7 % (0.0-2.0); EOSINOPHILS % (AUTO) 1.7 % (1.0-6.0); HEMATOCRIT 40.3 % (41-53); HEMOGLOBIN 14.1 g/dL (13.5-17.5); LYMPHOCYTES # (AUTO) 2.2 K/uL (1.0-4.8); LYMPHOCYTES % (AUTO) 27.6 % (22.0-44.0); MEAN CORPUSCULAR HGB CONC 34.8 G/dL (31.0-37.0); MEAN CORPUSCULAR VOLUME 89 fL (80-100); MONOCYTES # (AUTO) 0.6 K/uL (0.1-1.0); MONOCYTES % (AUTO) 7.7 % (2.0-9.0); NEUTROPHILS # (AUTO) 4.9 K/uL (1.8-7.7); NEUTROPHILS % (AUTO) 62.3 % (40.0-70.0); PLATELET COUNT (AUTO) 231 K/uL (150-450); RED BLOOD CELL COUNT(AUTO) 4.53 MIL/uL (4.50-5.90); RED CELL DISTRIBUTION WIDTH 13.5 % (11.5-14.5)
[2017-09-22 17:38] LABS: ANION GAP 8 mmol/L (8-16); CALCIUM, TOTAL 8.9 mg/dL (8.8-10.5); CARBON DIOXIDE 28 mmol/L (22-29); CHLORIDE 105 mmol/L (98-107); CREATININE 0.78 mg/dL (0.60-1.30); GLOMERULAR FILTR. RATE CALC > 60 mL/min (>60); GLUCOSE,RANDOM 115 mg/dL (70-110); POTASSIUM 4.1 mmol/L (3.5-5.1); SODIUM SERUM 141 mmol/L (136-145); UREA NITROGEN, BLOOD 24 mg/dL (7-18)
[2017-09-22 17:45] LABS: ALANINE AMINOTRANSFERASE 18 U/L (12-78); ALBUMIN 3.1 g/dL (3.4-5.0); ALKALINE PHOSPHATASE 71 U/L (46-116); ASPARTATE AMINOTRANSFERASE 15 U/L (15-37); BILIRUBIN,TOTAL 0.3 mg/dL (0.1-1.0); TOTAL PROTEIN, SERUM 6.9 g/dL (6.4-8.2)
[2017-09-22] MEDS ORDERED: ZOLPIDEM TARTRATE 10 MG TABLET PO PRN (18:00)
[2017-09-22] MEDS ORDERED: HALOPERIDOL 5 MG TABLET PO PRN (18:00)
[2017-09-22 18:14] LABS: APPEARANCE,URINE CLEAR (CLEAR); BILIRUBIN,URINE NEGATIVE (NEGATIVE); GLUCOSE, URINE (UA) NEGATIVE (NEGATIVE); KETONES,URINE NEGATIVE (NEGATIVE); LEUKOCYTE ESTERASE ,URINE NEGATIVE (NEGATIVE); NITRATE,URINE NEGATIVE (NEGATIVE); OCCULT BLOOD,URINE NEGATIVE (NEGATIVE); PROTEIN,URINE NEGATIVE (NEGATIVE); UROBILINOGEN,URINE 0.2 mg/dL (<=1.0)
[2017-09-22 18:27] LABS: CHOL/HDL RATIO 2.5 (4.2-7.3); CHOLESTEROL 164 mg/dL (131-200); FREE T4 (FREE THYROXINE) 0.85 ng/dL (0.76-1.46); HDL CHOLESTEROL 66 mg/dL (40-60); LDL CHOL (CALC.) 86 mg/dL (0-130); THYROID STIMULATING HORMONE 0.79 uIU/mL (0.36-3.74); TRIGLYCERIDES 62 mg/dL (15-150)
[2017-09-22] MEDS ORDERED: IBUPROFEN 600 MG TABLET PO PRN (21:30)
[2017-09-22] MEDS ORDERED: LOPERAMIDE HCL 2 MG CAPSULE PO PRN (21:30)
[2017-09-22] MEDS ORDERED: MAGNESIUM HYDROXIDE SUSPENSION 30 ML UDCUP PO PRN (21:30)
[2017-09-22] MEDS ORDERED: ACETAMINOPHEN 325 MG TABLET PO PRN (21:30)
[2017-09-22] MEDS ORDERED: ONDANSETRON HCL 4 MG TABLET PO PRN (21:30)
[2017-09-22] MEDS ORDERED: CloNIDine HCL 0.1 MG TABLET PO PRN (21:30)
[2017-09-22] MEDS ORDERED: MAG HYDROX/AL HYDROX/SIMETH ES 30 ML SUSPENSION UDCUP PO PRN (21:30)
[2017-09-22] MEDS ORDERED: ALBUTEROL SULFATE HFA 90 MCG/PUFF 8 GM INHALER IH PRN (21:30)
[2017-09-22] MEDS ORDERED: PETROLATUM,WHITE 71 GM JELLY TP PRN (21:30)
[2017-09-22] MEDS ORDERED: BENZOCAINE/MENTHOL LOZENGE MM PRN (21:30)
[2017-09-22] MEDS ORDERED: PNEUMOCOCCAL VACCINE POLYVALENT 0.5 ML VIAL [PPSV23] IM ONE (22:00)
[2017-09-22] MEDS ORDERED: INFLUENZA VIRUS VACCINE QVS 2017-18 (3YR+)/PF 60 MCG/0.5 ML SYRINGE IM ONE (22:00)
[2017-09-23 05:58] VITALS: BP 150/73
[2017-09-23 07:00] VITALS: BP 133/64
[2017-09-23] MEDS: NICOTINE 14 MG/24 HOUR PATCH TD SCH (08:28)
[2017-09-23] MEDS: LISINOPRIL 20 MG TABLET PO SCH (08:28)
[2017-09-23] MEDS: DOCUSATE SODIUM 100 MG CAPSULE PO SCH (08:28)
[2017-09-23] MEDS: LORazepam 2 MG TABLET PO PRN (08:28)
[2017-09-23] MEDS: BACITRACIN 28.4 GM OINTMENT TP SCH ×2 (08:31→17:05)
[2017-09-23 10:03] VITALS: BP 126/65
[2017-09-23] MEDS: ARIPiprazole 10 MG TABLET PO SCH (12:09)
[2017-09-23 16:13] VITALS: BP 134/79
[2017-09-23] MEDS: DIVALPROEX SODIUM 500 MG ER TABLET PO SCH (20:31)
[2017-09-24 06:10] VITALS: BP 129/80
[2017-09-24 08:11] VITALS: BP 137/80
[2017-09-24] MEDS: LISINOPRIL 20 MG TABLET PO SCH (08:19)
[2017-09-24] MEDS: ARIPiprazole 10 MG TABLET PO SCH (08:19)
[2017-09-24] MEDS: DOCUSATE SODIUM 100 MG CAPSULE PO SCH (08:19)
[2017-09-24] MEDS: NICOTINE 14 MG/24 HOUR PATCH TD SCH (08:20)
[2017-09-24] MEDS: LORazepam 2 MG TABLET PO PRN ×2 (08:49→17:07)
[2017-09-24] MEDS: BACITRACIN 28.4 GM OINTMENT TP SCH ×2 (08:49→16:17)
[2017-09-24 16:35] VITALS: BP 131/62
[2017-09-24] MEDS: DIVALPROEX SODIUM 500 MG ER TABLET PO SCH (20:14)
[2017-09-25 06:43] VITALS: BP 135/65
[2017-09-25 08:41] VITALS: BP 142/73
[2017-09-25] MEDS: NICOTINE 14 MG/24 HOUR PATCH TD SCH (09:00)
[2017-09-25] MEDS: ARIPiprazole 10 MG TABLET PO SCH (09:00)
[2017-09-25] MEDS: LISINOPRIL 20 MG TABLET PO SCH (09:00)
[2017-09-25] MEDS: DOCUSATE SODIUM 100 MG CAPSULE PO SCH (09:00)
[2017-09-25] MEDS: BACITRACIN 28.4 GM OINTMENT TP SCH ×2 (09:01→16:33)
[2017-09-25] MEDS: LORazepam 2 MG TABLET PO PRN (09:05)
[2017-09-25 16:27] VITALS: BP 139/69
[2017-09-25] MEDS: DIVALPROEX SODIUM 500 MG ER TABLET PO SCH (20:40)
[2017-09-26 01:00] VITALS: BP 127/87
[2017-09-26 09:10] VITALS: BP 123/72
[2017-09-26] MEDS: BACITRACIN 28.4 GM OINTMENT TP SCH ×2 (09:10→16:09)
[2017-09-26] MEDS: NICOTINE 14 MG/24 HOUR PATCH TD SCH (09:10)
[2017-09-26] MEDS: DOCUSATE SODIUM 100 MG CAPSULE PO SCH (09:10)
[2017-09-26] MEDS: LISINOPRIL 20 MG TABLET PO SCH (09:10)
[2017-09-26] MEDS: ARIPiprazole 10 MG TABLET PO SCH (09:10)
[2017-09-26] MEDS: LORazepam 2 MG TABLET PO PRN ×2 (11:48→17:01)
[2017-09-26 16:00] VITALS: BP 140/86
[2017-09-26] MEDS: DIVALPROEX SODIUM 500 MG ER TABLET PO SCH (20:28)
[2017-09-27 05:43] VITALS: BP 135/89
[2017-09-27] MEDS: DOCUSATE SODIUM 100 MG CAPSULE PO SCH (08:25)
[2017-09-27] MEDS: LISINOPRIL 20 MG TABLET PO SCH (08:25)
[2017-09-27] MEDS: ARIPiprazole 10 MG TABLET PO SCH (08:25)
[2017-09-27] MEDS: NICOTINE 14 MG/24 HOUR PATCH TD SCH (08:26)
[2017-09-27] MEDS: BACITRACIN 28.4 GM OINTMENT TP SCH (08:26)
[2017-09-27 08:46] VITALS: BP 121/82
[2017-09-27] MEDS: LORazepam 2 MG TABLET PO PRN (10:35)
[2017-09-27] MEDS ORDERED: DIVA500T69 PO ×2 (11:13→11:33)
[2017-09-27] MEDS ORDERED: DSSL PO (11:15)
[2017-09-27] MEDS ORDERED: ARIP10TA8 PO ×2 (11:15→11:34)
[2017-09-27] MEDS ORDERED: LISI-661 PO (11:16)
[2017-09-27] MEDS ORDERED: DOCU100C33 PO (11:35)
[2017-09-27] MEDS ORDERED: LISI-662 PO (11:36)
== END 2017-09-27 12:45 | disposition home or self-care (01) | DRG 885 ==
LOC: EMS 16:56 → B2X 19:08
PROVIDERS: ADMIT Psychiatry & Neurology Psychiatry; ATTEND Psychiatry & Neurology Psychiatry
DX: F20.0 Paranoid schizophrenia (principal); E11.9 Type 2 diabetes mellitus without complications; E78.00 Pure hypercholesterolemia, unspecified; F10.10 Alcohol abuse, uncomplicated; F12.10 Cannabis abuse, uncomplicated; F17.210 Nicotine dependence, cigarettes, uncomplicated; G47.00 Insomnia, unspecified; I10 Essential (primary) hypertension; J44.9 Chronic obstructive pulmonary disease, unspecified; K21.9 Gastro-esophageal reflux disease without esophagitis; L08.9 Local infection of the skin and subcutaneous tissue, unspecified; Z59.0 Homelessness; Z91.14 Patient's other noncompliance with medication regimen; Z88.8 Allergy status to other drugs, medicaments and biological substances
CPT/HCPCS: 84439; 84443; 99285; 99406; G0480

== ENCOUNTER 2017-10-15 16:42 | Inpatient (IN) | payer MEDICARE, MEDICAID ==
[~2017-10-15] VITALS: Ht 182.9 cm; Wt 93.0 kg
[~2017-10-15 16:42] MED LIST changes: +ARIP10TA8 PO; -ARIP15TA2 PO; -DIVA500T52 PO; +DIVA500T69 PO; +DSSL PO; -OMEP20 PO
[2017-10-15] MEDS ORDERED: HALOPERIDOL 5 MG TABLET PO PRN (17:15)
[2017-10-15] MEDS ORDERED: ZOLPIDEM TARTRATE 10 MG TABLET PO PRN (17:15)
[2017-10-15 17:20] VITALS: BP 143/93
[2017-10-15] MEDS ORDERED: INFLUENZA VIRUS VACCINE QVS 2017-18 (3YR+)/PF 60 MCG/0.5 ML SYRINGE IM ONE (18:00)
[2017-10-15 18:31] VITALS: BP 148/83
[2017-10-15] MEDS ORDERED: MAGNESIUM HYDROXIDE SUSPENSION 30 ML UDCUP PO PRN (20:15)
[2017-10-15] MEDS ORDERED: ONDANSETRON HCL 4 MG TABLET PO PRN (20:15)
[2017-10-15] MEDS ORDERED: ALBUTEROL SULFATE HFA 90 MCG/PUFF 8 GM INHALER IH PRN (20:15)
[2017-10-15] MEDS ORDERED: ACETAMINOPHEN 325 MG TABLET PO PRN (20:15)
[2017-10-15] MEDS ORDERED: LOPERAMIDE HCL 2 MG CAPSULE PO PRN (20:15)
[2017-10-15] MEDS ORDERED: CloNIDine HCL 0.1 MG TABLET PO PRN (20:15)
[2017-10-15] MEDS ORDERED: BACITRACIN 28.4 GM OINTMENT TP PRN (20:15)
[2017-10-15] MEDS ORDERED: MAG HYDROX/AL HYDROX/SIMETH ES 30 ML SUSPENSION UDCUP PO PRN (20:15)
[2017-10-15] MEDS ORDERED: PETROLATUM,WHITE 71 GM JELLY TP PRN (20:15)
[2017-10-15] MEDS ORDERED: BENZOCAINE/MENTHOL LOZENGE MM PRN (20:15)
[2017-10-15] MEDS ORDERED: IBUPROFEN 600 MG TABLET PO PRN (20:15)
[2017-10-15] MEDS: DIVALPROEX SODIUM 500 MG ER TABLET PO SCH (21:08)
[2017-10-16 06:39] VITALS: BP 145/71
[2017-10-16] MEDS: LORazepam 2 MG TABLET PO PRN (06:59)
[2017-10-16 08:06] VITALS: BP 142/81
[2017-10-16 08:23] LABS: BASOPHILS % (AUTO) 0.5 % (0.0-2.0); EOSINOPHILS % (AUTO) 2.6 % (1.0-6.0); HEMATOCRIT 43.2 % (41-53); HEMOGLOBIN 14.8 g/dL (13.5-17.5); LYMPHOCYTES % (AUTO) 30.4 % (22.0-44.0); MEAN CORPUSCULAR HEMOGLOBIN 30.1 pg (26.0-34.0); MEAN CORPUSCULAR HGB CONC 34.2 G/dL (31.0-37.0); MEAN CORPUSCULAR VOLUME 88 fL (80-100); MONOCYTES # (AUTO) 0.6 K/uL (0.1-1.0); MONOCYTES % (AUTO) 8.8 % (2.0-9.0); NEUTROPHILS # (AUTO) 3.7 K/uL (1.8-7.7); NEUTROPHILS % (AUTO) 57.7 % (40.0-70.0); PLATELET COUNT (AUTO) 264 K/uL (150-450); RED CELL DISTRIBUTION WIDTH 13.3 % (11.5-14.5)
[2017-10-16] MEDS: ARIPiprazole 10 MG TABLET PO SCH (08:47)
[2017-10-16] MEDS: LISINOPRIL 20 MG TABLET PO SCH (08:47)
[2017-10-16 08:48] LABS: HEMOGLOBIN A1C 5.5 % (4.5-6.2)
[2017-10-16 08:51] LABS: ALANINE AMINOTRANSFERASE 16 U/L (12-78); ALBUMIN 3.2 g/dL (3.4-5.0); ALKALINE PHOSPHATASE 73 U/L (46-116); ANION GAP 10 mmol/L (8-16); ASPARTATE AMINOTRANSFERASE 12 U/L (15-37); BILIRUBIN,TOTAL 0.6 mg/dL (0.1-1.0); CALCIUM, TOTAL 8.9 mg/dL (8.8-10.5); CARBON DIOXIDE 28 mmol/L (22-29); CHLORIDE 106 mmol/L (98-107); CHOL/HDL RATIO 2.7 (4.2-7.3); CHOLESTEROL 167 mg/dL (131-200); CREATININE 0.89 mg/dL (0.60-1.30); FREE T4 (FREE THYROXINE) 0.98 ng/dL (0.76-1.46); GLOMERULAR FILTR. RATE CALC > 60 mL/min (>60); GLUCOSE,RANDOM 95 mg/dL (70-110); HDL CHOLESTEROL 63 mg/dL (40-60); LDL CHOL (CALC.) 96 mg/dL (0-130); POTASSIUM 4.6 mmol/L (3.5-5.1); SODIUM SERUM 144 mmol/L (136-145); THYROID STIMULATING HORMONE 0.65 uIU/mL (0.36-3.74); TOTAL PROTEIN, SERUM 7.2 g/dL (6.4-8.2); TRIGLYCERIDES 38 mg/dL (15-150); UREA NITROGEN, BLOOD 19 mg/dL (7-18); VALPROIC ACID 18 mcg/mL (50-100)
[2017-10-16 16:17] VITALS: BP 140/72
[2017-10-16] MEDS: DIVALPROEX SODIUM 500 MG ER TABLET PO SCH (21:11)
[2017-10-17 08:22] VITALS: BP 125/64
[2017-10-17] MEDS: ARIPiprazole 10 MG TABLET PO SCH (09:23)
[2017-10-17] MEDS: LISINOPRIL 20 MG TABLET PO SCH (09:23)
[2017-10-17] MEDS: LORazepam 2 MG TABLET PO PRN ×2 (09:23→17:50)
[2017-10-17 16:28] VITALS: BP 128/80
[2017-10-17] MEDS: DIVALPROEX SODIUM 500 MG ER TABLET PO SCH (20:04)
[2017-10-18 08:21] VITALS: BP 117/58
[2017-10-18] MEDS: ARIPiprazole 10 MG TABLET PO SCH (08:32)
[2017-10-18] MEDS: LISINOPRIL 20 MG TABLET PO SCH (09:00)
[2017-10-18] MEDS: LORazepam 2 MG TABLET PO PRN ×2 (09:31→16:05)
[2017-10-18 09:48] VITALS: BP 122/63
[2017-10-18 16:13] VITALS: BP 120/88
[2017-10-18] MEDS: DIVALPROEX SODIUM 500 MG ER TABLET PO SCH (20:37)
[2017-10-19 08:21] VITALS: BP 114/75
[2017-10-19] MEDS: ARIPiprazole 10 MG TABLET PO SCH (08:26)
[2017-10-19] MEDS: LISINOPRIL 20 MG TABLET PO SCH (08:26)
== END 2017-10-19 12:30 | disposition home or self-care (01) | DRG 885 ==
LOC: B3A 17:34 → B2S 10-16 12:56
PROVIDERS: ADMIT Psychiatry & Neurology Psychiatry; ATTEND Psychiatry & Neurology Psychiatry
DX: F25.9 Schizoaffective disorder, unspecified (principal); Z59.0 Homelessness; F12.10 Cannabis abuse, uncomplicated; Z71.51 Drug abuse counseling and surveillance of drug abuser; F15.10 Other stimulant abuse, uncomplicated; F17.200 Nicotine dependence, unspecified, uncomplicated; F41.9 Anxiety disorder, unspecified; G47.00 Insomnia, unspecified; I10 Essential (primary) hypertension; J44.9 Chronic obstructive pulmonary disease, unspecified; K21.9 Gastro-esophageal reflux disease without esophagitis; Z28.21 Immunization not carried out because of patient refusal
CPT/HCPCS: 83036; 84439; 84443; 87081

== ENCOUNTER 2017-10-29 15:24 | Inpatient (IN) | payer MEDICARE, MEDICAID ==
[~2017-10-29] VITALS: Ht 182.9 cm; Wt 87.2 kg
[~2017-10-29 15:24] MED LIST changes: -DSSL PO
[2017-10-29] MEDS ORDERED: HALOPERIDOL 5 MG TABLET PO ONE (16:45)
[2017-10-29 17:10] LABS: BASOPHILS % (AUTO) 0.7 % (0.0-2.0); HEMATOCRIT 41.6 % (41-53); HEMOGLOBIN 14.1 g/dL (13.5-17.5); LYMPHOCYTES # (AUTO) 2.1 K/uL (1.0-4.8); LYMPHOCYTES % (AUTO) 26.5 % (22.0-44.0); MEAN CORPUSCULAR HEMOGLOBIN 29.7 pg (26.0-34.0); MEAN CORPUSCULAR HGB CONC 33.8 G/dL (31.0-37.0); MEAN CORPUSCULAR VOLUME 88 fL (80-100); MONOCYTES # (AUTO) 0.6 K/uL (0.1-1.0); MONOCYTES % (AUTO) 7.6 % (2.0-9.0); NEUTROPHILS # (AUTO) 5.2 K/uL (1.8-7.7); NEUTROPHILS % (AUTO) 64.2 % (40.0-70.0); PLATELET COUNT (AUTO) 264 K/uL (150-450); RED BLOOD CELL COUNT(AUTO) 4.73 MIL/uL (4.50-5.90); RED CELL DISTRIBUTION WIDTH 13.4 % (11.5-14.5)
[2017-10-29 17:15] LABS: ANION GAP 8 mmol/L (8-16); CALCIUM, TOTAL 9.1 mg/dL (8.8-10.5); CARBON DIOXIDE 29 mmol/L (22-29); CHLORIDE 103 mmol/L (98-107); CREATININE 0.77 mg/dL (0.60-1.30); GLOMERULAR FILTR. RATE CALC > 60 mL/min (>60); GLUCOSE,RANDOM 126 mg/dL (70-110); POTASSIUM 3.9 mmol/L (3.5-5.1); SODIUM SERUM 140 mmol/L (136-145); UREA NITROGEN, BLOOD 11 mg/dL (7-18)
[2017-10-29 17:17] LABS: AMPHET/METH SCREEN,URINE POSITIVE (NEGATIVE); BARBITURATE SCREEN, URINE NEGATIVE (NEGATIVE); BENZODIAZEPINES SCREEN,URINE NEGATIVE (NEGATIVE); CANNABINOID SCREEN,URINE POSITIVE (NEGATIVE); COCAINE SCREEN,URINE NEGATIVE (NEGATIVE); METHADONE SCREEN, URINE NEGATIVE (NEGATIVE); OPIATE SCREEN,URINE NEGATIVE (NEGATIVE)
[2017-10-29 17:18] LABS: PHENCYCLIDINE SCREEN,URINE NEGATIVE (NEGATIVE)
[2017-10-29 17:23] LABS: ALANINE AMINOTRANSFERASE 19 U/L (12-78); ALBUMIN 3.5 g/dL (3.4-5.0); ALKALINE PHOSPHATASE 84 U/L (46-116); ASPARTATE AMINOTRANSFERASE 19 U/L (15-37); BILIRUBIN,TOTAL 0.6 mg/dL (0.1-1.0); TOTAL PROTEIN, SERUM 7.9 g/dL (6.4-8.2); VALPROIC ACID 4 mcg/mL (50-100)
[2017-10-29] MEDS ORDERED: HALOPERIDOL 5 MG TABLET PO PRN (20:15)
[2017-10-29] MEDS ORDERED: ZOLPIDEM TARTRATE 10 MG TABLET PO PRN (20:15)
[2017-10-30 00:56] VITALS: BP 142/98
[2017-10-30] MEDS ORDERED: PNEUMOCOCCAL VACCINE POLYVALENT 0.5 ML VIAL [PPSV23] IM ONE (03:00)
[2017-10-30 08:13] VITALS: BP 136/84
[2017-10-30] MEDS ORDERED: BENZOCAINE/MENTHOL LOZENGE MM PRN (09:30)
[2017-10-30] MEDS ORDERED: CloNIDine HCL 0.1 MG TABLET PO PRN (09:30)
[2017-10-30] MEDS ORDERED: MAGNESIUM HYDROXIDE SUSPENSION 30 ML UDCUP PO PRN (09:30)
[2017-10-30] MEDS ORDERED: IBUPROFEN 600 MG TABLET PO PRN (09:30)
[2017-10-30] MEDS ORDERED: ONDANSETRON HCL 4 MG TABLET PO PRN (09:30)
[2017-10-30] MEDS ORDERED: LOPERAMIDE HCL 2 MG CAPSULE PO PRN (09:30)
[2017-10-30] MEDS ORDERED: PETROLATUM,WHITE 71 GM JELLY TP PRN (09:30)
[2017-10-30] MEDS ORDERED: ACETAMINOPHEN 325 MG TABLET PO PRN (09:30)
[2017-10-30] MEDS ORDERED: BACITRACIN 28.4 GM OINTMENT TP PRN (09:30)
[2017-10-30] MEDS ORDERED: MAG HYDROX/AL HYDROX/SIMETH ES 30 ML SUSPENSION UDCUP PO PRN (09:30)
[2017-10-30] MEDS ORDERED: ALBUTEROL SULFATE HFA 90 MCG/PUFF 8 GM INHALER IH PRN (09:30)
[2017-10-30 16:00] VITALS: BP 130/82
[2017-10-30] MEDS: ARIPiprazole 10 MG TABLET PO SCH (16:14)
[2017-10-30] MEDS: LORazepam 2 MG TABLET PO PRN (16:15)
[2017-10-30] MEDS: DIVALPROEX SODIUM 500 MG ER TABLET PO SCH (20:30)
[2017-10-31 06:18] VITALS: BP 132/88
[2017-10-31 08:36] VITALS: BP 140/81
[2017-10-31] MEDS: ARIPiprazole 10 MG TABLET PO SCH (09:00)
[2017-10-31] MEDS: LISINOPRIL 5 MG TABLET PO SCH (09:00)
[2017-10-31] MEDS: LORazepam 2 MG TABLET PO PRN ×2 (12:20→17:17)
[2017-10-31 16:00] VITALS: BP 115/66
[2017-10-31] MEDS: DIVALPROEX SODIUM 500 MG ER TABLET PO SCH (21:00)
[2017-11-01 02:31] VITALS: BP 120/80
[2017-11-01 08:24] VITALS: BP 154/80
[2017-11-01] MEDS: LISINOPRIL 5 MG TABLET PO SCH (08:50)
[2017-11-01] MEDS: ARIPiprazole 10 MG TABLET PO SCH (08:50)
[2017-11-01 09:00] VITALS: BP 132/70
[2017-11-01 16:00] VITALS: BP 142/81
[2017-11-01] MEDS: LORazepam 2 MG TABLET PO PRN (16:32)
[2017-11-01] MEDS: DIVALPROEX SODIUM 500 MG ER TABLET PO SCH (20:30)
[2017-11-02 06:41] VITALS: BP 135/86
[2017-11-02 08:00] VITALS: BP 137/70
[2017-11-02] MEDS: LISINOPRIL 5 MG TABLET PO SCH (08:08)
[2017-11-02] MEDS: ARIPiprazole 10 MG TABLET PO SCH (08:08)
[2017-11-02] MEDS ORDERED: LISI-660 PO (09:04)
== END 2017-11-02 09:50 | disposition home or self-care (01) | DRG 885 ==
LOC: EMS 15:25 → B3A 21:00
PROVIDERS: ADMIT Psychiatry & Neurology Psychiatry; ATTEND Psychiatry & Neurology Psychiatry
DX: F25.9 Schizoaffective disorder, unspecified (principal); E11.9 Type 2 diabetes mellitus without complications; R45.851 Suicidal ideations; E78.00 Pure hypercholesterolemia, unspecified; F12.90 Cannabis use, unspecified, uncomplicated; F15.10 Other stimulant abuse, uncomplicated; F17.210 Nicotine dependence, cigarettes, uncomplicated; F41.9 Anxiety disorder, unspecified; G47.00 Insomnia, unspecified; I10 Essential (primary) hypertension; J44.9 Chronic obstructive pulmonary disease, unspecified; K21.9 Gastro-esophageal reflux disease without esophagitis; Z59.0 Homelessness; Z79.899 Other long term (current) drug therapy; Z71.6 Tobacco abuse counseling; Z71.51 Drug abuse counseling and surveillance of drug abuser; Z22.322 Carrier or suspected carrier of Methicillin resistant Staphylococcus aureus; Z28.21 Immunization not carried out because of patient refusal
CPT/HCPCS: 87070; 87081; 87205; 90471; G0480

== ENCOUNTER 2017-11-22 11:04 | Emergency (ER) | payer MEDICARE, OTHER ==
[~2017-11-22] VITALS: Ht 182.9 cm; Wt 81.8 kg
[~2017-11-22 11:04] MED LIST changes: +LISI-660 PO; -LISI-662 PO
[2017-11-22 11:16] VITALS: BP 138/74
[2017-11-22 11:48] LABS: GLUCOSE,POINT OF CARE 85 MG/DL (70-110)
[2017-11-22 11:56] LABS: BASOPHILS % (AUTO) 0.8 % (0.0-2.0); EOSINOPHILS % (AUTO) 1.9 % (1.0-6.0); HEMATOCRIT 43.6 % (41-53); HEMOGLOBIN 15.2 g/dL (13.5-17.5); LYMPHOCYTES # (AUTO) 1.5 K/uL (1.0-4.8); LYMPHOCYTES % (AUTO) 17.2 % (22.0-44.0); MEAN CORPUSCULAR HGB CONC 34.9 G/dL (31.0-37.0); MEAN CORPUSCULAR VOLUME 86 fL (80-100); MONOCYTES # (AUTO) 0.8 K/uL (0.1-1.0); MONOCYTES % (AUTO) 9.1 % (2.0-9.0); NEUTROPHILS # (AUTO) 6.2 K/uL (1.8-7.7); PLATELET COUNT (AUTO) 263 K/uL (150-450); RED BLOOD CELL COUNT(AUTO) 5.08 MIL/uL (4.50-5.90); RED CELL DISTRIBUTION WIDTH 13.5 % (11.5-14.5)
[2017-11-22 12:04] LABS: ANION GAP 10 mmol/L (8-16); CALCIUM, TOTAL 9.3 mg/dL (8.8-10.5); CARBON DIOXIDE 25 mmol/L (22-29); CHLORIDE 102 mmol/L (98-107); CREATININE 0.75 mg/dL (0.60-1.30); GLOMERULAR FILTR. RATE CALC > 60 mL/min (>60); GLUCOSE,RANDOM 91 mg/dL (70-110); POTASSIUM 3.8 mmol/L (3.5-5.1); SODIUM SERUM 137 mmol/L (136-145); UREA NITROGEN, BLOOD 15 mg/dL (7-18)
[2017-11-22 12:10] LABS: ALANINE AMINOTRANSFERASE 18 U/L (12-78); ALBUMIN 3.6 g/dL (3.4-5.0); ALKALINE PHOSPHATASE 75 U/L (46-116); ASPARTATE AMINOTRANSFERASE 18 U/L (15-37); BILIRUBIN,TOTAL 1.3 mg/dL (0.1-1.0); TOTAL PROTEIN, SERUM 8.5 g/dL (6.4-8.2)
[2017-11-22 12:12] LABS: VALPROIC ACID < 3 mcg/mL (50-100)
[2017-11-22] MEDS ORDERED: HALOPERIDOL 5 MG TABLET PO ONE (12:30)
[2017-11-22 12:31] LABS: AMPHET/METH SCREEN,URINE POSITIVE (NEGATIVE); BARBITURATE SCREEN, URINE NEGATIVE (NEGATIVE); BENZODIAZEPINES SCREEN,URINE NEGATIVE (NEGATIVE); CANNABINOID SCREEN,URINE POSITIVE (NEGATIVE); COCAINE SCREEN,URINE NEGATIVE (NEGATIVE); METHADONE SCREEN, URINE NEGATIVE (NEGATIVE); OPIATE SCREEN,URINE NEGATIVE (NEGATIVE)
[2017-11-22 12:32] LABS: PHENCYCLIDINE SCREEN,URINE NEGATIVE (NEGATIVE)
== END 2017-11-22 12:52 | disposition left against medical advice (07) ==
LOC: EMS 11:05
DX: F20.9 Schizophrenia, unspecified (principal); E78.00 Pure hypercholesterolemia, unspecified; E11.9 Type 2 diabetes mellitus without complications; J40 Bronchitis, not specified as acute or chronic; F17.210 Nicotine dependence, cigarettes, uncomplicated; F12.90 Cannabis use, unspecified, uncomplicated; Z88.8 Allergy status to other drugs, medicaments and biological substances; Z59.0 Homelessness
CPT/HCPCS: 36415; 80053; 80164; 80307; 82948; 82962; 85025; 99284; G0480

== ENCOUNTER 2017-11-22 20:05 | Emergency (ER) | payer MEDICARE, OTHER ==
[~2017-11-22] VITALS: Ht 182.9 cm; Wt 81.0 kg
[2017-11-22 20:16] VITALS: BP 143/75
== END 2017-11-22 21:32 | disposition left against medical advice (07) ==
LOC: EMS 20:06
DX: L98.9 Disorder of the skin and subcutaneous tissue, unspecified (principal); E78.00 Pure hypercholesterolemia, unspecified; F17.210 Nicotine dependence, cigarettes, uncomplicated; F12.90 Cannabis use, unspecified, uncomplicated; Z53.21 Procedure and treatment not carried out due to patient leaving prior to being seen by health care provider

== ENCOUNTER 2017-12-01 19:13 | Inpatient (IN) | payer MEDICARE, MEDICAID ==
[~2017-12-01] VITALS: Ht 182.9 cm; Wt 88.9 kg
[2017-12-01] MEDS ORDERED: PNEUMOCOCCAL VACCINE POLYVALENT 0.5 ML VIAL [PPSV23] IM ONE (19:45)
[2017-12-01] MEDS ORDERED: HALOPERIDOL 5 MG TABLET PO PRN (19:45)
[2017-12-01] MEDS ORDERED: ZOLPIDEM TARTRATE 10 MG TABLET PO PRN (19:45)
[2017-12-01 20:11] VITALS: BP 142/85
[2017-12-02 06:30] VITALS: BP 137/82
[2017-12-02 07:55] LABS: HEMATOCRIT 39.6 % (41-53); HEMOGLOBIN 13.7 g/dL (13.5-17.5); LYMPHOCYTES # (AUTO) 1.8 K/uL (1.0-4.8); LYMPHOCYTES % (AUTO) 29.9 % (22.0-44.0); MEAN CORPUSCULAR HEMOGLOBIN 29.7 pg (26.0-34.0); MEAN CORPUSCULAR HGB CONC 34.6 G/dL (31.0-37.0); MEAN CORPUSCULAR VOLUME 86 fL (80-100); MONOCYTES # (AUTO) 0.6 K/uL (0.1-1.0); MONOCYTES % (AUTO) 10.2 % (2.0-9.0); NEUTROPHILS # (AUTO) 3.4 K/uL (1.8-7.7); NEUTROPHILS % (AUTO) 55.9 % (40.0-70.0); PLATELET COUNT (AUTO) 257 K/uL (150-450); RED BLOOD CELL COUNT(AUTO) 4.62 MIL/uL (4.50-5.90); RED CELL DISTRIBUTION WIDTH 13.5 % (11.5-14.5)
[2017-12-02 08:17] LABS: HEMOGLOBIN A1C 5.5 % (4.5-6.2)
[2017-12-02 08:20] LABS: ALANINE AMINOTRANSFERASE 14 U/L (12-78); ALBUMIN 2.9 g/dL (3.4-5.0); ALKALINE PHOSPHATASE 72 U/L (46-116); ANION GAP 6 mmol/L (8-16); ASPARTATE AMINOTRANSFERASE 14 U/L (15-37); CALCIUM, TOTAL 8.6 mg/dL (8.8-10.5); CARBON DIOXIDE 29 mmol/L (22-29); CHLORIDE 104 mmol/L (98-107); CHOL/HDL RATIO 2.4 (4.2-7.3); CHOLESTEROL 140 mg/dL (131-200); CREATININE 0.81 mg/dL (0.60-1.30); FREE T4 (FREE THYROXINE) 0.83 ng/dL (0.76-1.46); GLOMERULAR FILTR. RATE CALC > 60 mL/min (>60); GLUCOSE,RANDOM 104 mg/dL (70-110); HDL CHOLESTEROL 59 mg/dL (40-60); LDL CHOL (CALC.) 74 mg/dL (0-130); SODIUM SERUM 139 mmol/L (136-145); THYROID STIMULATING HORMONE 0.37 uIU/mL (0.36-3.74); TOTAL PROTEIN, SERUM 7.4 g/dL (6.4-8.2); TRIGLYCERIDES 37 mg/dL (15-150); UREA NITROGEN, BLOOD 20 mg/dL (7-18)
[2017-12-02] MEDS ORDERED: BACITRACIN 28.4 GM OINTMENT TP PRN (08:30)
[2017-12-02] MEDS ORDERED: ACETAMINOPHEN 325 MG TABLET PO PRN (08:30)
[2017-12-02] MEDS ORDERED: CloNIDine HCL 0.1 MG TABLET PO PRN (08:30)
[2017-12-02] MEDS ORDERED: ONDANSETRON HCL 4 MG TABLET PO PRN (08:30)
[2017-12-02] MEDS ORDERED: MAG HYDROX/AL HYDROX/SIMETH ES 30 ML SUSPENSION UDCUP PO PRN (08:30)
[2017-12-02] MEDS ORDERED: MAGNESIUM HYDROXIDE SUSPENSION 30 ML UDCUP PO PRN (08:30)
[2017-12-02] MEDS ORDERED: ALBUTEROL SULFATE HFA 90 MCG/PUFF 8 GM INHALER IH PRN (08:30)
[2017-12-02] MEDS ORDERED: IBUPROFEN 600 MG TABLET PO PRN (08:30)
[2017-12-02] MEDS ORDERED: PETROLATUM,WHITE 71 GM JELLY TP PRN (08:30)
[2017-12-02] MEDS ORDERED: BENZOCAINE/MENTHOL LOZENGE MM PRN (08:30)
[2017-12-02] MEDS ORDERED: LOPERAMIDE HCL 2 MG CAPSULE PO PRN (08:30)
[2017-12-02 08:31] LABS: BILIRUBIN,TOTAL 0.5 mg/dL (0.1-1.0)
[2017-12-02] MEDS: LISINOPRIL 5 MG TABLET PO SCH (08:53)
[2017-12-02] MEDS: BACITRACIN 28.4 GM OINTMENT TP SCH ×2 (08:54→16:52)
[2017-12-02 16:14] VITALS: BP 131/60
[2017-12-02] MEDS: LORazepam 2 MG TABLET PO PRN (18:14)
[2017-12-02] MEDS: DIVALPROEX SODIUM 500 MG ER TABLET PO SCH (20:30)
[2017-12-03 07:00] VITALS: BP 130/86
[2017-12-03 09:15] VITALS: BP 128/73
[2017-12-03] MEDS: LISINOPRIL 5 MG TABLET PO SCH (09:15)
[2017-12-03] MEDS: ARIPiprazole 15 MG TABLET PO SCH (09:15)
[2017-12-03] MEDS: BACITRACIN 28.4 GM OINTMENT TP SCH ×2 (09:16→16:23)
[2017-12-03] MEDS: LORazepam 2 MG TABLET PO PRN (13:24)
[2017-12-03] MEDS: DIVALPROEX SODIUM 500 MG ER TABLET PO SCH (20:37)
[2017-12-04 06:41] VITALS: BP 139/91
[2017-12-04 09:27] VITALS: BP 133/88
[2017-12-04] MEDS: ARIPiprazole 15 MG TABLET PO SCH (09:27)
[2017-12-04] MEDS: MUPIROCIN CALCIUM 2% 15 GM CREAM TP SCH (09:27)
[2017-12-04] MEDS: LISINOPRIL 5 MG TABLET PO SCH (09:27)
[2017-12-04] MEDS: BACITRACIN 28.4 GM OINTMENT TP SCH ×2 (09:28→16:32)
[2017-12-04] MEDS: LORazepam 2 MG TABLET PO PRN ×2 (09:28→15:13)
[2017-12-04 16:15] VITALS: BP 134/91
[2017-12-04] MEDS: DIVALPROEX SODIUM 500 MG ER TABLET PO SCH (20:40)
[2017-12-05 06:08] VITALS: BP 127/73
[2017-12-05 09:30] VITALS: BP 138/83
[2017-12-05] MEDS: LISINOPRIL 5 MG TABLET PO SCH (09:34)
[2017-12-05] MEDS: MUPIROCIN CALCIUM 2% 15 GM CREAM TP SCH (09:34)
[2017-12-05] MEDS: BACITRACIN 28.4 GM OINTMENT TP SCH (09:34)
[2017-12-05] MEDS: ARIPiprazole 15 MG TABLET PO SCH (09:34)
[2017-12-05] MEDS ORDERED: BACI1POW3 (10:50)
[2017-12-05] MEDS ORDERED: BACI30OI6 TP (10:54)
[2017-12-05] MEDS ORDERED: MUPI15CR12 TP (10:54)
== END 2017-12-05 12:00 | disposition home or self-care (01) | DRG 885 ==
LOC: B3A 19:40 → B2X 12-02 09:00
PROVIDERS: ADMIT Psychiatry & Neurology Psychiatry; ATTEND Psychiatry & Neurology Psychiatry
DX: F20.0 Paranoid schizophrenia (principal); R45.851 Suicidal ideations; Z59.0 Homelessness; K21.9 Gastro-esophageal reflux disease without esophagitis; J44.9 Chronic obstructive pulmonary disease, unspecified; I10 Essential (primary) hypertension; G47.00 Insomnia, unspecified; F12.90 Cannabis use, unspecified, uncomplicated; F15.10 Other stimulant abuse, uncomplicated; F17.200 Nicotine dependence, unspecified, uncomplicated; Z88.8 Allergy status to other drugs, medicaments and biological substances; Z79.899 Other long term (current) drug therapy
CPT/HCPCS: 83036; 84439; 84443; 87070; 87081; 87205; 90471

== ENCOUNTER 2018-01-17 15:52 | Emergency (ER) | payer MEDICARE, MEDICAID ==
[~2018-01-17] VITALS: Ht 182.9 cm; Wt 90.9 kg
[~2018-01-17 15:52] MED LIST changes: +BACI30OI6 TP; +MUPI15CR12 TP
[2018-01-17 16:11] VITALS: BP 154/95
[2018-01-17] MEDS ORDERED: LORazepam 2 MG TABLET PO ONE (16:15)
== END 2018-01-17 17:13 | disposition home or self-care (01) ==
LOC: EMS 15:53
DX: F20.9 Schizophrenia, unspecified (principal); S41.102A Unspecified open wound of left upper arm, initial encounter; S41.101A Unspecified open wound of right upper arm, initial encounter; S81.802A Unspecified open wound, left lower leg, initial encounter; S81.801A Unspecified open wound, right lower leg, initial encounter; J40 Bronchitis, not specified as acute or chronic; E78.00 Pure hypercholesterolemia, unspecified; F12.90 Cannabis use, unspecified, uncomplicated; F17.210 Nicotine dependence, cigarettes, uncomplicated; Z88.8 Allergy status to other drugs, medicaments and biological substances
CPT/HCPCS: 99284; 99406

== ENCOUNTER 2018-02-11 19:23 | Inpatient (IN) | payer MEDICARE, MEDICAID ==
[~2018-02-11] VITALS: Ht 182.9 cm; Wt 86.9 kg
[~2018-02-11 19:23] MED LIST changes: -BACI30OI6 TP; -MUPI15CR12 TP
[2018-02-11 20:23] VITALS: BP 126/66
[2018-02-11] MEDS ORDERED: ZOLPIDEM TARTRATE 10 MG TABLET PO PRN (20:30)
[2018-02-11] MEDS ORDERED: HALOPERIDOL 5 MG TABLET PO PRN (20:30)
[2018-02-11] MEDS ORDERED: PNEUMOCOCCAL VACCINE POLYVALENT 0.5 ML VIAL [PPSV23] IM ONE (21:00)
[2018-02-11 21:09] VITALS: BP 149/85
[2018-02-11] MEDS ORDERED: MAG HYDROX/AL HYDROX/SIMETH ES 30 ML SUSPENSION UDCUP PO PRN (21:15)
[2018-02-11] MEDS ORDERED: ONDANSETRON HCL 4 MG TABLET PO PRN (21:15)
[2018-02-11] MEDS ORDERED: LOPERAMIDE HCL 2 MG CAPSULE PO PRN (21:15)
[2018-02-11] MEDS ORDERED: PETROLATUM,WHITE 71 GM JELLY TP PRN (21:15)
[2018-02-11] MEDS ORDERED: CloNIDine HCL 0.1 MG TABLET PO PRN (21:15)
[2018-02-11] MEDS ORDERED: ALBUTEROL SULFATE HFA 90 MCG/PUFF 8 GM INHALER IH PRN (21:15)
[2018-02-11] MEDS ORDERED: IBUPROFEN 400 MG TABLET PO PRN (21:15)
[2018-02-11] MEDS ORDERED: ACETAMINOPHEN 325 MG TABLET PO PRN (21:15)
[2018-02-11] MEDS ORDERED: MAGNESIUM HYDROXIDE SUSPENSION 30 ML UDCUP PO PRN (21:15)
[2018-02-11] MEDS ORDERED: DOCUSATE SODIUM 100 MG CAPSULE PO PRN (21:15)
[2018-02-11] MEDS ORDERED: LISINOPRIL 5 MG TABLET PO ONE (21:30)
[2018-02-11 22:45] VITALS: BP 133/89
[2018-02-12 01:03] VITALS: BP 131/79
[2018-02-12 01:05] VITALS: BP 135/74
[2018-02-12 08:20] VITALS: BP 130/82
[2018-02-12] MEDS: BACITRACIN 28.4 GM OINTMENT TP SCH ×3 (08:20→16:44)
[2018-02-12] MEDS: LISINOPRIL 5 MG TABLET PO SCH (08:20)
[2018-02-12] MEDS: NICOTINE 14 MG/24 HOUR PATCH TD SCH (08:20)
[2018-02-12 08:37] LABS: EOSINOPHILS % (AUTO) 3.8 % (1.0-6.0); HEMATOCRIT 43.1 % (41-53); HEMOGLOBIN 15.1 g/dL (13.5-17.5); LYMPHOCYTES # (AUTO) 1.8 K/uL (1.0-4.8); LYMPHOCYTES % (AUTO) 34.3 % (22.0-44.0); MEAN CORPUSCULAR HEMOGLOBIN 30.2 pg (26.0-34.0); MEAN CORPUSCULAR HGB CONC 35.2 G/dL (31.0-37.0); MEAN CORPUSCULAR VOLUME 86 fL (80-100); MONOCYTES # (AUTO) 0.5 K/uL (0.1-1.0); MONOCYTES % (AUTO) 9.7 % (2.0-9.0); NEUTROPHILS # (AUTO) 2.8 K/uL (1.8-7.7); NEUTROPHILS % (AUTO) 51.2 % (40.0-70.0); PLATELET COUNT (AUTO) 250 K/uL (150-450); RED BLOOD CELL COUNT(AUTO) 5.01 MIL/uL (4.50-5.90); RED CELL DISTRIBUTION WIDTH 14.9 % (11.5-14.5)
[2018-02-12 08:48] LABS: HEMOGLOBIN A1C 5.4 % (4.5-6.2)
[2018-02-12 09:28] LABS: ALANINE AMINOTRANSFERASE 13 U/L (12-78); ALBUMIN 3.2 g/dL (3.4-5.0); ALKALINE PHOSPHATASE 67 U/L (46-116); ANION GAP 8 mmol/L (8-16); ASPARTATE AMINOTRANSFERASE 17 U/L (15-37); BILIRUBIN,TOTAL 0.6 mg/dL (0.1-1.0); CALCIUM, TOTAL 8.9 mg/dL (8.8-10.5); CARBON DIOXIDE 27 mmol/L (22-29); CHLORIDE 104 mmol/L (98-107); CHOL/HDL RATIO 2.1 (4.2-7.3); CHOLESTEROL 153 mg/dL (131-200); CREATININE 0.76 mg/dL (0.60-1.30); FREE T4 (FREE THYROXINE) 1.08 ng/dL (0.76-1.46); GLOMERULAR FILTR. RATE CALC > 60 mL/min (>60); GLUCOSE,RANDOM 101 mg/dL (70-110); HDL CHOLESTEROL 72 mg/dL (40-60); LDL CHOL (CALC.) 75 mg/dL (0-130); POTASSIUM 3.9 mmol/L (3.5-5.1); SODIUM SERUM 139 mmol/L (136-145); THYROID STIMULATING HORMONE 0.62 uIU/mL (0.36-3.74); TOTAL PROTEIN, SERUM 7.3 g/dL (6.4-8.2); TRIGLYCERIDES 32 mg/dL (15-150); UREA NITROGEN, BLOOD 14 mg/dL (7-18)
[2018-02-12] MEDS: LORazepam 2 MG TABLET PO PRN (16:47)
[2018-02-12 16:48] VITALS: BP 132/84
[2018-02-12] MEDS: DIVALPROEX SODIUM 500 MG ER TABLET PO SCH (21:00)
[2018-02-13 06:08] VITALS: BP 143/72
[2018-02-13] MEDS: NICOTINE 14 MG/24 HOUR PATCH TD SCH (08:34)
[2018-02-13] MEDS: LISINOPRIL 5 MG TABLET PO SCH (08:34)
[2018-02-13] MEDS: ARIPiprazole 15 MG TABLET PO SCH (08:34)
[2018-02-13] MEDS: BACITRACIN 28.4 GM OINTMENT TP SCH ×2 (09:00→16:59)
[2018-02-13] MEDS: LORazepam 2 MG TABLET PO PRN ×2 (09:37→14:55)
[2018-02-13 16:03] VITALS: BP 140/87
[2018-02-13] MEDS: DIVALPROEX SODIUM 500 MG ER TABLET PO SCH (20:13)
[2018-02-14 00:55] VITALS: BP 134/74
[2018-02-14] MEDS: LISINOPRIL 5 MG TABLET PO SCH (08:27)
[2018-02-14] MEDS: ARIPiprazole 15 MG TABLET PO SCH (08:27)
[2018-02-14] MEDS: LORazepam 2 MG TABLET PO PRN ×2 (08:29→15:00)
[2018-02-14] MEDS: NICOTINE 14 MG/24 HOUR PATCH TD SCH (08:30)
[2018-02-14] MEDS: BACITRACIN 28.4 GM OINTMENT TP SCH ×2 (08:30→17:37)
[2018-02-14 08:54] VITALS: BP 147/86
[2018-02-14 16:19] VITALS: BP 135/74
[2018-02-14] MEDS ORDERED: NICOTINE 14 MG/24 HOUR PATCH TD ONE (17:45)
[2018-02-14] MEDS: DIVALPROEX SODIUM 500 MG ER TABLET PO SCH (21:14)
[2018-02-15 06:52] VITALS: BP 140/86
[2018-02-15] MEDS: LISINOPRIL 5 MG TABLET PO SCH (09:03)
[2018-02-15] MEDS: ARIPiprazole 15 MG TABLET PO SCH (09:03)
[2018-02-15] MEDS: BACITRACIN 28.4 GM OINTMENT TP SCH (09:04)
[2018-02-15] MEDS: NICOTINE 14 MG/24 HOUR PATCH TD SCH (09:06)
[2018-02-15 09:45] VITALS: BP 142/71
== END 2018-02-15 10:45 | disposition home or self-care (01) | DRG 885 ==
LOC: B2S 20:30 → B2X 02-13 10:22
PROVIDERS: ADMIT Psychiatry & Neurology Psychiatry; ATTEND Psychiatry & Neurology Psychiatry
DX: F20.0 Paranoid schizophrenia (principal); R45.851 Suicidal ideations; E11.9 Type 2 diabetes mellitus without complications; E78.5 Hyperlipidemia, unspecified; F10.10 Alcohol abuse, uncomplicated; F15.90 Other stimulant use, unspecified, uncomplicated; F41.9 Anxiety disorder, unspecified; I10 Essential (primary) hypertension; J44.9 Chronic obstructive pulmonary disease, unspecified; K21.9 Gastro-esophageal reflux disease without esophagitis; Z59.0 Homelessness; Z79.899 Other long term (current) drug therapy; Z71.51 Drug abuse counseling and surveillance of drug abuser; Z71.41 Alcohol abuse counseling and surveillance of alcoholic; Z88.8 Allergy status to other drugs, medicaments and biological substances
CPT/HCPCS: 83036; 84439; 84443; J3535

== ENCOUNTER 2018-03-11 19:12 | Inpatient (IN) | payer MEDICARE, MEDICAID ==
[~2018-03-11] VITALS: Ht 182.9 cm; Wt 90.7 kg
[2018-03-11] MEDS ORDERED: HALOPERIDOL 5 MG TABLET PO PRN (19:45)
[2018-03-11] MEDS ORDERED: PNEUMOCOCCAL VACCINE POLYVALENT 0.5 ML VIAL [PPSV23] IM ONE (19:45)
[2018-03-11] MEDS ORDERED: ZOLPIDEM TARTRATE 10 MG TABLET PO PRN (19:45)
[2018-03-11 20:03] VITALS: BP 150/89
[2018-03-11] MEDS ORDERED: LOPERAMIDE HCL 2 MG CAPSULE PO PRN (22:00)
[2018-03-11] MEDS ORDERED: PETROLATUM,WHITE 71 GM JELLY TP PRN (22:00)
[2018-03-11] MEDS ORDERED: MAG HYDROX/AL HYDROX/SIMETH ES 30 ML SUSPENSION UDCUP PO PRN (22:00)
[2018-03-11] MEDS ORDERED: IBUPROFEN 400 MG TABLET PO PRN (22:00)
[2018-03-11] MEDS ORDERED: DOCUSATE SODIUM 100 MG CAPSULE PO PRN (22:00)
[2018-03-11] MEDS ORDERED: NICOTINE 14 MG/24 HOUR PATCH TD PRN (22:00)
[2018-03-11] MEDS ORDERED: GuaiFENesin/D-METHORPHAN [SUGAR-FREE] 200-20MG/10 ML SYRUP UDCUP PO PRN (22:00)
[2018-03-11] MEDS ORDERED: ACETAMINOPHEN 325 MG TABLET PO PRN (22:00)
[2018-03-11] MEDS ORDERED: CloNIDine HCL 0.1 MG TABLET PO PRN (22:00)
[2018-03-11] MEDS ORDERED: MAGNESIUM HYDROXIDE SUSPENSION 30 ML UDCUP PO PRN (22:00)
[2018-03-11] MEDS ORDERED: ONDANSETRON HCL 4 MG TABLET PO PRN (22:00)
[2018-03-11] MEDS ORDERED: ALBUTEROL SULFATE HFA 90 MCG/PUFF 8 GM INHALER IH PRN (22:00)
[2018-03-12 01:08] VITALS: BP 132/87
[2018-03-12 08:14] LABS: BASOPHILS % (AUTO) 0.9 % (0.0-2.0); HEMATOCRIT 42.1 % (41-53); HEMOGLOBIN 14.2 g/dL (13.5-17.5); LYMPHOCYTES # (AUTO) 1.6 K/uL (1.0-4.8); LYMPHOCYTES % (AUTO) 30.6 % (22.0-44.0); MEAN CORPUSCULAR HEMOGLOBIN 29.6 pg (26.0-34.0); MEAN CORPUSCULAR HGB CONC 33.8 G/dL (31.0-37.0); MEAN CORPUSCULAR VOLUME 88 fL (80-100); MONOCYTES # (AUTO) 0.4 K/uL (0.1-1.0); MONOCYTES % (AUTO) 8.3 % (2.0-9.0); NEUTROPHILS # (AUTO) 3.1 K/uL (1.8-7.7); NEUTROPHILS % (AUTO) 57.2 % (40.0-70.0); PLATELET COUNT (AUTO) 218 K/uL (150-450); RED CELL DISTRIBUTION WIDTH 14.4 % (11.5-14.5)
[2018-03-12 08:24] LABS: HEMOGLOBIN A1C 5.6 % (4.5-6.2)
[2018-03-12 09:06] LABS: ALANINE AMINOTRANSFERASE 18 U/L (12-78); ALBUMIN 2.9 g/dL (3.4-5.0); ALKALINE PHOSPHATASE 71 U/L (46-116); ANION GAP 7 mmol/L (8-16); ASPARTATE AMINOTRANSFERASE 19 U/L (15-37); BILIRUBIN,TOTAL 0.4 mg/dL (0.1-1.0); CALCIUM, TOTAL 8.4 mg/dL (8.8-10.5); CARBON DIOXIDE 28 mmol/L (22-29); CHLORIDE 105 mmol/L (98-107); CHOL/HDL RATIO 2.6 (4.2-7.3); CHOLESTEROL 138 mg/dL (131-200); CREATININE 0.67 mg/dL (0.60-1.30); FREE T4 (FREE THYROXINE) 0.87 ng/dL (0.76-1.46); GLOMERULAR FILTR. RATE CALC > 60 mL/min (>60); GLUCOSE,RANDOM 98 mg/dL (70-110); HDL CHOLESTEROL 53 mg/dL (40-60); LDL CHOL (CALC.) 72 mg/dL (0-130); POTASSIUM 3.9 mmol/L (3.5-5.1); SODIUM SERUM 140 mmol/L (136-145); THYROID STIMULATING HORMONE 0.99 uIU/mL (0.36-3.74); TRIGLYCERIDES 67 mg/dL (15-150); UREA NITROGEN, BLOOD 15 mg/dL (7-18)
[2018-03-12] MEDS: LORazepam 2 MG TABLET PO PRN (12:23)
[2018-03-12 16:23] VITALS: BP 132/68
[2018-03-12] MEDS: ARIPiprazole 15 MG TABLET PO SCH (20:37)
[2018-03-12] MEDS: DIVALPROEX SODIUM 500 MG ER TABLET PO SCH (20:37)
[2018-03-12] MEDS ORDERED: DIVALPROEX SODIUM 500 MG ER TABLET PO SCH (21:00)
[2018-03-13 00:10] VITALS: BP 141/67
[2018-03-13] MEDS ORDERED: ARIPiprazole 15 MG TABLET PO SCH (09:00)
[2018-03-13] MEDS: LORazepam 2 MG TABLET PO PRN ×2 (10:40→18:12)
[2018-03-13] MEDS ORDERED: LISINOPRIL 5 MG TABLET PO SCH (16:00)
[2018-03-13] MEDS: BACITRACIN 28.4 GM OINTMENT TP SCH (16:02)
[2018-03-13 17:04] VITALS: BP 153/84
[2018-03-13] MEDS ORDERED: LISINOPRIL 5 MG TABLET PO ONE (17:15)
[2018-03-13] MEDS ORDERED: ARIP15TA2 PO (17:17)
[2018-03-13] MEDS: ARIPiprazole 15 MG TABLET PO SCH (20:43)
[2018-03-13] MEDS: DIVALPROEX SODIUM 500 MG ER TABLET PO SCH (20:43)
[2018-03-14 06:43] VITALS: BP 141/76
[2018-03-14] MEDS: LISINOPRIL 10 MG TABLET PO SCH (08:28)
[2018-03-14] MEDS: BACITRACIN 28.4 GM OINTMENT TP SCH ×2 (08:29→16:35)
[2018-03-14] MEDS: LORazepam 2 MG TABLET PO PRN ×2 (09:26→16:57)
[2018-03-14 16:00] VITALS: BP 142/79
[2018-03-14] MEDS: DIVALPROEX SODIUM 500 MG ER TABLET PO SCH (20:32)
[2018-03-14] MEDS: ARIPiprazole 15 MG TABLET PO SCH (20:32)
[2018-03-15 02:24] VITALS: BP 138/78
[2018-03-15 09:05] VITALS: BP 138/74
[2018-03-15] MEDS: BACITRACIN 28.4 GM OINTMENT TP SCH (09:07)
[2018-03-15] MEDS: LISINOPRIL 10 MG TABLET PO SCH (09:07)
[2018-03-15] MEDS ORDERED: LISI-661 PO ×4 (10:54→11:03)
== END 2018-03-15 14:40 | disposition home or self-care (01) | DRG 885 ==
LOC: B2X 19:45
PROVIDERS: ADMIT Psychiatry & Neurology Psychiatry; ATTEND Psychiatry & Neurology Psychiatry
DX: F20.0 Paranoid schizophrenia (principal); R45.851 Suicidal ideations; E11.9 Type 2 diabetes mellitus without complications; E78.5 Hyperlipidemia, unspecified; F10.10 Alcohol abuse, uncomplicated; F15.90 Other stimulant use, unspecified, uncomplicated; I10 Essential (primary) hypertension; J44.9 Chronic obstructive pulmonary disease, unspecified; F17.200 Nicotine dependence, unspecified, uncomplicated; F19.10 Other psychoactive substance abuse, uncomplicated; K21.9 Gastro-esophageal reflux disease without esophagitis; Z59.0 Homelessness; Z88.8 Allergy status to other drugs, medicaments and biological substances; Z71.41 Alcohol abuse counseling and surveillance of alcoholic; Z71.51 Drug abuse counseling and surveillance of drug abuser
CPT/HCPCS: 83036; 84439; 84443; 87081

== ENCOUNTER 2018-04-16 10:42 | Emergency (ER) | payer MEDICARE, OTHER ==
[~2018-04-16] VITALS: Ht 182.9 cm; Wt 90.9 kg
[~2018-04-16 10:42] MED LIST changes: -ARIP10TA8 PO; +ARIP15TA2 PO; -LISI-660 PO; +LISI-661 PO
[2018-04-16 10:47] VITALS: BP 156/93
[2018-04-16 11:11] LABS: EOSINOPHILS % (AUTO) 3.3 % (1.0-6.0); HEMATOCRIT 43.2 % (41-53); HEMOGLOBIN 14.6 g/dL (13.5-17.5); LYMPHOCYTES # (AUTO) 1.8 K/uL (1.0-4.8); LYMPHOCYTES % (AUTO) 29.6 % (22.0-44.0); MEAN CORPUSCULAR HEMOGLOBIN 29.6 pg (26.0-34.0); MEAN CORPUSCULAR HGB CONC 33.8 G/dL (31.0-37.0); MEAN CORPUSCULAR VOLUME 88 fL (80-100); MONOCYTES # (AUTO) 0.5 K/uL (0.1-1.0); MONOCYTES % (AUTO) 8.3 % (2.0-9.0); NEUTROPHILS # (AUTO) 3.5 K/uL (1.8-7.7); NEUTROPHILS % (AUTO) 57.8 % (40.0-70.0); PLATELET COUNT (AUTO) 243 K/uL (150-450); RED BLOOD CELL COUNT(AUTO) 4.94 MIL/uL (4.50-5.90); RED CELL DISTRIBUTION WIDTH 15.1 % (11.5-14.5)
[2018-04-16 11:31] LABS: ANION GAP 5 mmol/L (8-16); CALCIUM, TOTAL 9.1 mg/dL (8.8-10.5); CARBON DIOXIDE 31 mmol/L (22-29); CHLORIDE 104 mmol/L (98-107); CREATININE 0.85 mg/dL (0.60-1.30); GLOMERULAR FILTR. RATE CALC > 60 mL/min (>60); GLUCOSE,RANDOM 89 mg/dL (70-110); POTASSIUM 4.6 mmol/L (3.5-5.1); SODIUM SERUM 140 mmol/L (136-145); UREA NITROGEN, BLOOD 12 mg/dL (7-18)
[2018-04-16 11:38] LABS: ALANINE AMINOTRANSFERASE 16 U/L (12-78); ALBUMIN 3.2 g/dL (3.4-5.0); ALKALINE PHOSPHATASE 77 U/L (46-116); ASPARTATE AMINOTRANSFERASE 13 U/L (15-37); BILIRUBIN,TOTAL 0.6 mg/dL (0.1-1.0); TOTAL PROTEIN, SERUM 7.6 g/dL (6.4-8.2)
== END 2018-04-16 14:26 | disposition home or self-care (01) ==
LOC: EMS 10:44
DX: F20.0 Paranoid schizophrenia (principal); F12.90 Cannabis use, unspecified, uncomplicated; F17.210 Nicotine dependence, cigarettes, uncomplicated; E78.00 Pure hypercholesterolemia, unspecified; Z88.8 Allergy status to other drugs, medicaments and biological substances; Z79.899 Other long term (current) drug therapy; Z98.890 Other specified postprocedural states
CPT/HCPCS: 36415; 80053; 85025; 99284; G0480

== ENCOUNTER 2018-04-19 14:17 | Inpatient (IN) | payer MEDICARE, MEDICAID ==
[~2018-04-19] VITALS: Ht 182.9 cm; Wt 85.4 kg
[2018-04-19] MEDS ORDERED: ZOLPIDEM TARTRATE 10 MG TABLET PO PRN (15:00)
[2018-04-19] MEDS ORDERED: HALOPERIDOL 5 MG TABLET PO PRN (15:00)
[2018-04-19 16:00] VITALS: BP 140/78
[2018-04-19] MEDS ORDERED: PNEUMOCOCCAL VACCINE POLYVALENT 0.5 ML VIAL [PPSV23] IM ONE (16:15)
[2018-04-19] MEDS ORDERED: ALBUTEROL SULFATE HFA 90 MCG/PUFF 8 GM INHALER IH PRN (17:15)
[2018-04-19] MEDS ORDERED: DOCUSATE SODIUM 100 MG CAPSULE PO PRN (17:15)
[2018-04-19] MEDS ORDERED: MAG HYDROX/AL HYDROX/SIMETH ES 30 ML SUSPENSION UDCUP PO PRN (17:15)
[2018-04-19] MEDS ORDERED: ONDANSETRON HCL 4 MG TABLET PO PRN (17:15)
[2018-04-19] MEDS ORDERED: LOPERAMIDE HCL 2 MG CAPSULE PO PRN (17:15)
[2018-04-19] MEDS ORDERED: PETROLATUM,WHITE 71 GM JELLY TP PRN (17:15)
[2018-04-19] MEDS ORDERED: GuaiFENesin/D-METHORPHAN [SUGAR-FREE] 200-20MG/10 ML SYRUP UDCUP PO PRN (17:15)
[2018-04-19] MEDS ORDERED: MAGNESIUM HYDROXIDE SUSPENSION 30 ML UDCUP PO PRN (17:15)
[2018-04-19] MEDS ORDERED: CloNIDine HCL 0.1 MG TABLET PO PRN (17:15)
[2018-04-19] MEDS ORDERED: NICOTINE 14 MG/24 HOUR PATCH TD PRN (17:15)
[2018-04-19] MEDS ORDERED: IBUPROFEN 400 MG TABLET PO PRN (17:15)
[2018-04-19] MEDS ORDERED: ACETAMINOPHEN 325 MG TABLET PO PRN (17:15)
[2018-04-20 00:42] VITALS: BP 132/70
[2018-04-20 06:10] VITALS: BP 160/90
[2018-04-20] MEDS: LORazepam 2 MG TABLET PO PRN ×2 (06:13→16:46)
[2018-04-20] MEDS: LISINOPRIL 10 MG TABLET PO SCH (09:00)
[2018-04-20 09:08] LABS: BASOPHILS % (AUTO) 0.9 % (0.0-2.0); EOSINOPHILS % (AUTO) 4.5 % (1.0-6.0); HEMATOCRIT 42.2 % (41-53); HEMOGLOBIN 14.6 g/dL (13.5-17.5); LYMPHOCYTES # (AUTO) 1.6 K/uL (1.0-4.8); LYMPHOCYTES % (AUTO) 28.7 % (22.0-44.0); MEAN CORPUSCULAR HEMOGLOBIN 29.8 pg (26.0-34.0); MEAN CORPUSCULAR HGB CONC 34.6 G/dL (31.0-37.0); MEAN CORPUSCULAR VOLUME 86 fL (80-100); MONOCYTES # (AUTO) 0.4 K/uL (0.1-1.0); MONOCYTES % (AUTO) 7.9 % (2.0-9.0); NEUTROPHILS # (AUTO) 3.1 K/uL (1.8-7.7); PLATELET COUNT (AUTO) 232 K/uL (150-450); RED CELL DISTRIBUTION WIDTH 14.8 % (11.5-14.5)
[2018-04-20 09:45] LABS: ALANINE AMINOTRANSFERASE 17 U/L (12-78); ALBUMIN 3.2 g/dL (3.4-5.0); ALKALINE PHOSPHATASE 68 U/L (46-116); ANION GAP 5 mmol/L (8-16); ASPARTATE AMINOTRANSFERASE 16 U/L (15-37); BILIRUBIN,TOTAL 0.6 mg/dL (0.1-1.0); CALCIUM, TOTAL 8.6 mg/dL (8.8-10.5); CARBON DIOXIDE 29 mmol/L (22-29); CHLORIDE 104 mmol/L (98-107); CHOL/HDL RATIO 2.3 (4.2-7.3); CHOLESTEROL 168 mg/dL (131-200); CREATININE 0.74 mg/dL (0.60-1.30); GLOMERULAR FILTR. RATE CALC > 60 mL/min (>60); GLUCOSE,RANDOM 97 mg/dL (70-110); HDL CHOLESTEROL 74 mg/dL (40-60); LDL CHOL (CALC.) 89 mg/dL (0-130); POTASSIUM 3.8 mmol/L (3.5-5.1); SODIUM SERUM 138 mmol/L (136-145); THYROID STIMULATING HORMONE 0.76 uIU/mL (0.36-3.74); TOTAL PROTEIN, SERUM 7.3 g/dL (6.4-8.2); TRIGLYCERIDES 26 mg/dL (15-150); UREA NITROGEN, BLOOD 19 mg/dL (7-18)
[2018-04-20 10:01] VITALS: BP 125/69
[2018-04-20 10:01] LABS: HEMOGLOBIN A1C 5.6 % (4.5-6.2)
[2018-04-20] MEDS: ARIPiprazole 15 MG TABLET PO SCH (12:56)
[2018-04-20 16:18] VITALS: BP 138/88
[2018-04-20] MEDS: DIVALPROEX SODIUM 500 MG ER TABLET PO SCH (20:20)
[2018-04-21 05:46] VITALS: BP 136/84
[2018-04-21 08:24] VITALS: BP 143/73
[2018-04-21] MEDS: ARIPiprazole 15 MG TABLET PO SCH (08:38)
[2018-04-21] MEDS: LISINOPRIL 10 MG TABLET PO SCH (08:38)
[2018-04-21] MEDS: LORazepam 2 MG TABLET PO PRN ×2 (08:39→15:13)
[2018-04-21 16:06] VITALS: BP 132/82
[2018-04-21] MEDS: DIVALPROEX SODIUM 500 MG ER TABLET PO SCH (20:08)
[2018-04-22 06:26] VITALS: BP 126/70
[2018-04-22 09:00] VITALS: BP 140/76
[2018-04-22] MEDS: LISINOPRIL 10 MG TABLET PO SCH (09:03)
[2018-04-22] MEDS: ARIPiprazole 15 MG TABLET PO SCH (09:03)
[2018-04-22] MEDS: LORazepam 2 MG TABLET PO PRN (11:00)
[2018-04-22] MEDS: DIVALPROEX SODIUM 500 MG ER TABLET PO SCH (20:24)
[2018-04-23 05:56] VITALS: BP 112/89
[2018-04-23 08:20] VITALS: BP 108/64
[2018-04-23] MEDS: ARIPiprazole 15 MG TABLET PO SCH (08:57)
[2018-04-23] MEDS: LISINOPRIL 10 MG TABLET PO SCH (08:57)
== END 2018-04-23 10:15 | disposition home or self-care (01) | DRG 885 ==
LOC: B2S 14:53
DX: F20.0 Paranoid schizophrenia (principal); R45.851 Suicidal ideations; E11.9 Type 2 diabetes mellitus without complications; E78.5 Hyperlipidemia, unspecified; J44.9 Chronic obstructive pulmonary disease, unspecified; F10.10 Alcohol abuse, uncomplicated; I10 Essential (primary) hypertension; F15.10 Other stimulant abuse, uncomplicated; R51 Headache; K21.9 Gastro-esophageal reflux disease without esophagitis; Z59.0 Homelessness; Z79.899 Other long term (current) drug therapy; Z91.5 Personal history of self-harm; Z88.8 Allergy status to other drugs, medicaments and biological substances; Z71.51 Drug abuse counseling and surveillance of drug abuser; Z71.6 Tobacco abuse counseling
CPT/HCPCS: 83036; 84439; 84443; 90471

== ENCOUNTER 2018-06-10 08:42 | Inpatient (IN) | payer MEDICARE, MEDICAID ==
[~2018-06-10] VITALS: Ht 182.9 cm; Wt 85.7 kg
[2018-06-11 08:40] VITALS: BP 156/97
[2018-06-11] MEDS ORDERED: ZOLPIDEM TARTRATE 10 MG TABLET PO PRN (09:00)
[2018-06-11] MEDS ORDERED: HALOPERIDOL 5 MG TABLET PO PRN (09:00)
[2018-06-11] MEDS ORDERED: PNEUMOCOCCAL VACCINE POLYVALENT 0.5 ML VIAL [PPSV23] IM ONE (09:15)
[2018-06-11] MEDS ORDERED: GuaiFENesin/D-METHORPHAN [SUGAR-FREE] 200-20MG/10 ML SYRUP UDCUP PO PRN (10:15)
[2018-06-11] MEDS ORDERED: CloNIDine HCL 0.1 MG TABLET PO PRN (10:15)
[2018-06-11] MEDS ORDERED: MAG HYDROX/AL HYDROX/SIMETH ES 30 ML SUSPENSION UDCUP PO PRN (10:15)
[2018-06-11] MEDS ORDERED: IBUPROFEN 400 MG TABLET PO PRN (10:15)
[2018-06-11] MEDS ORDERED: ACETAMINOPHEN 325 MG TABLET PO PRN (10:15)
[2018-06-11] MEDS ORDERED: PETROLATUM,WHITE 71 GM JELLY TP PRN (10:15)
[2018-06-11] MEDS ORDERED: MAGNESIUM HYDROXIDE SUSPENSION 30 ML UDCUP PO PRN (10:15)
[2018-06-11] MEDS ORDERED: ALBUTEROL SULFATE HFA 90 MCG/PUFF 8 GM INHALER IH PRN (10:15)
[2018-06-11] MEDS ORDERED: ONDANSETRON HCL 4 MG TABLET PO PRN (10:15)
[2018-06-11] MEDS ORDERED: DOCUSATE SODIUM 100 MG CAPSULE PO PRN (10:15)
[2018-06-11] MEDS ORDERED: LOPERAMIDE HCL 2 MG CAPSULE PO PRN (10:15)
[2018-06-11] MEDS: LISINOPRIL 10 MG TABLET PO SCH (11:07)
[2018-06-11] MEDS: LORazepam 2 MG TABLET PO PRN (16:47)
[2018-06-11] MEDS: DIVALPROEX SODIUM 500 MG DR TABLET PO SCH (20:16)
[2018-06-12 05:32] VITALS: BP 118/70
[2018-06-12 08:06] LABS: AMPHET/METH SCREEN,URINE NEGATIVE (NEGATIVE); BARBITURATE SCREEN, URINE NEGATIVE (NEGATIVE); BENZODIAZEPINES SCREEN,URINE NEGATIVE (NEGATIVE); CANNABINOID SCREEN,URINE POSITIVE (NEGATIVE); COCAINE SCREEN,URINE NEGATIVE (NEGATIVE); METHADONE SCREEN, URINE NEGATIVE (NEGATIVE); OPIATE SCREEN,URINE NEGATIVE (NEGATIVE)
[2018-06-12 08:07] LABS: PHENCYCLIDINE SCREEN,URINE NEGATIVE (NEGATIVE)
[2018-06-12] MEDS: ARIPiprazole 15 MG TABLET PO SCH (08:57)
[2018-06-12] MEDS: LISINOPRIL 10 MG TABLET PO SCH (08:57)
[2018-06-12 09:08] LABS: APPEARANCE,URINE CLEAR (CLEAR); BILIRUBIN,URINE NEGATIVE (NEGATIVE); GLUCOSE, URINE (UA) NEGATIVE (NEGATIVE); KETONES,URINE NEGATIVE (NEGATIVE); LEUKOCYTE ESTERASE ,URINE NEGATIVE (NEGATIVE); NITRATE,URINE NEGATIVE (NEGATIVE); OCCULT BLOOD,URINE NEGATIVE (NEGATIVE); PROTEIN,URINE NEGATIVE (NEGATIVE); UROBILINOGEN,URINE 0.2 mg/dL (<=1.0)
[2018-06-12] MEDS: LORazepam 2 MG TABLET PO PRN (13:08)
[2018-06-12] MEDS: DIVALPROEX SODIUM 500 MG DR TABLET PO SCH (20:34)
[2018-06-13 05:07] VITALS: BP 106/68
[2018-06-13 08:35] VITALS: BP 137/77
[2018-06-13] MEDS: ARIPiprazole 15 MG TABLET PO SCH (08:35)
[2018-06-13] MEDS: LISINOPRIL 10 MG TABLET PO SCH (08:35)
[2018-06-13 08:43] LABS: BASOPHILS % (AUTO) 0.6 % (0.0-2.0); EOSINOPHILS % (AUTO) 1.6 % (1.0-6.0); HEMATOCRIT 41.2 % (41-53); HEMOGLOBIN 14.1 g/dL (13.5-17.5); LYMPHOCYTES # (AUTO) 1.8 K/uL (1.0-4.8); LYMPHOCYTES % (AUTO) 26.6 % (22.0-44.0); MEAN CORPUSCULAR HGB CONC 34.3 G/dL (31.0-37.0); MEAN CORPUSCULAR VOLUME 87 fL (80-100); MONOCYTES # (AUTO) 0.3 K/uL (0.1-1.0); MONOCYTES % (AUTO) 4.8 % (2.0-9.0); NEUTROPHILS # (AUTO) 4.4 K/uL (1.8-7.7); NEUTROPHILS % (AUTO) 66.4 % (40.0-70.0); PLATELET COUNT (AUTO) 248 K/uL (150-450); RED BLOOD CELL COUNT(AUTO) 4.71 MIL/uL (4.50-5.90); RED CELL DISTRIBUTION WIDTH 14.6 % (11.5-14.5)
[2018-06-13 08:59] LABS: HEMOGLOBIN A1C 5.6 % (4.5-6.2)
[2018-06-13 09:07] LABS: ALANINE AMINOTRANSFERASE 18 U/L (12-78); ALBUMIN 3.1 g/dL (3.4-5.0); ALKALINE PHOSPHATASE 69 U/L (46-116); ANION GAP 3 mmol/L (8-16); ASPARTATE AMINOTRANSFERASE 16 U/L (15-37); BILIRUBIN,TOTAL 0.6 mg/dL (0.1-1.0); CALCIUM, TOTAL 8.5 mg/dL (8.8-10.5); CARBON DIOXIDE 33 mmol/L (22-29); CHLORIDE 102 mmol/L (98-107); CHOL/HDL RATIO 2.7 (4.2-7.3); CHOLESTEROL 166 mg/dL (131-200); FREE T4 (FREE THYROXINE) 0.81 ng/dL (0.76-1.46); GLOMERULAR FILTR. RATE CALC > 60 mL/min (>60); GLUCOSE,RANDOM 133 mg/dL (70-110); HDL CHOLESTEROL 61 mg/dL (40-60); LDL CHOL (CALC.) 90 mg/dL (0-130); SODIUM SERUM 138 mmol/L (136-145); TOTAL PROTEIN, SERUM 7.3 g/dL (6.4-8.2); TRIGLYCERIDES 77 mg/dL (15-150); UREA NITROGEN, BLOOD 12 mg/dL (7-18)
[2018-06-13] MEDS: LORazepam 2 MG TABLET PO PRN ×2 (10:07→15:35)
[2018-06-13 16:05] VITALS: BP 140/90
[2018-06-13] MEDS: NICOTINE 14 MG/24 HOUR PATCH TD PRN (17:18)
[2018-06-13] MEDS: DIVALPROEX SODIUM 500 MG DR TABLET PO SCH (20:33)
[2018-06-14 05:05] VITALS: BP 131/72
[2018-06-14 08:11] VITALS: BP 143/69
[2018-06-14] MEDS: ARIPiprazole 15 MG TABLET PO SCH (08:33)
[2018-06-14] MEDS: LISINOPRIL 10 MG TABLET PO SCH (08:34)
[2018-06-14] MEDS: LORazepam 2 MG TABLET PO PRN ×2 (08:34→16:59)
[2018-06-14 16:12] VITALS: BP 144/83
[2018-06-14] MEDS: DIVALPROEX SODIUM 500 MG DR TABLET PO SCH (20:33)
[2018-06-15 04:55] VITALS: BP 138/72
[2018-06-15 08:04] VITALS: BP 130/74
[2018-06-15] MEDS: LISINOPRIL 10 MG TABLET PO SCH (08:47)
[2018-06-15] MEDS: ARIPiprazole 15 MG TABLET PO SCH (08:47)
[2018-06-15] MEDS: NICOTINE 14 MG/24 HOUR PATCH TD PRN (13:31)
[2018-06-15] MEDS: LORazepam 2 MG TABLET PO PRN (15:51)
[2018-06-15 16:11] VITALS: BP 136/81
[2018-06-15] MEDS: DIVALPROEX SODIUM 500 MG DR TABLET PO SCH (20:26)
[2018-06-16 06:13] VITALS: BP 128/75
[2018-06-16 08:08] VITALS: BP 144/68
[2018-06-16] MEDS: LISINOPRIL 10 MG TABLET PO SCH (08:24)
[2018-06-16] MEDS: ARIPiprazole 15 MG TABLET PO SCH (08:24)
[2018-06-16] MEDS: NICOTINE 14 MG/24 HOUR PATCH TD PRN (09:59)
[2018-06-16] MEDS: CEPHALEXIN MONOHYDRATE 500 MG CAPSULE PO SCH ×2 (13:09→16:30)
[2018-06-16] MEDS: LORazepam 2 MG TABLET PO PRN (14:00)
[2018-06-16 16:07] VITALS: BP 136/65
[2018-06-16] MEDS: SULFAMETHOX/TRIMETH DS 800-160 MG/TABLET PO SCH (16:30)
[2018-06-16] MEDS: DIVALPROEX SODIUM 500 MG DR TABLET PO SCH (16:32)
[2018-06-16] MEDS: BACITRACIN 28.4 GM OINTMENT TP SCH (17:01)
[2018-06-17 04:48] VITALS: BP 126/72
[2018-06-17 09:05] VITALS: BP 141/68
[2018-06-17] MEDS: SULFAMETHOX/TRIMETH DS 800-160 MG/TABLET PO SCH (09:07)
[2018-06-17] MEDS: CEPHALEXIN MONOHYDRATE 500 MG CAPSULE PO SCH ×2 (09:07→12:36)
[2018-06-17] MEDS: ARIPiprazole 15 MG TABLET PO SCH (09:07)
[2018-06-17] MEDS: DIVALPROEX SODIUM 500 MG DR TABLET PO SCH (09:07)
[2018-06-17] MEDS: LISINOPRIL 10 MG TABLET PO SCH (09:07)
[2018-06-17] MEDS: BACITRACIN 28.4 GM OINTMENT TP SCH (09:08)
[2018-06-17] MEDS: NICOTINE 14 MG/24 HOUR PATCH TD PRN (09:46)
[2018-06-17] MEDS ORDERED: CEPH500 PO (14:21)
[2018-06-17] MEDS ORDERED: BACTDSB PO (14:22)
== END 2018-06-17 14:48 | disposition home or self-care (01) | DRG 885 ==
LOC: B2X 06-11 09:05
PROVIDERS: ADMIT Psychiatry & Neurology Psychiatry; ATTEND Psychiatry & Neurology Psychiatry
DX: F20.9 Schizophrenia, unspecified (principal); E11.9 Type 2 diabetes mellitus without complications; E78.5 Hyperlipidemia, unspecified; F10.10 Alcohol abuse, uncomplicated; F15.90 Other stimulant use, unspecified, uncomplicated; F32.9 Major depressive disorder, single episode, unspecified; F41.9 Anxiety disorder, unspecified; I10 Essential (primary) hypertension; J44.9 Chronic obstructive pulmonary disease, unspecified; K21.9 Gastro-esophageal reflux disease without esophagitis; L02.92 Furuncle, unspecified; Z91.19 Patient's noncompliance with other medical treatment and regimen; F19.10 Other psychoactive substance abuse, uncomplicated; Z71.51 Drug abuse counseling and surveillance of drug abuser; Z71.41 Alcohol abuse counseling and surveillance of alcoholic; Z88.8 Allergy status to other drugs, medicaments and biological substances; Z79.899 Other long term (current) drug therapy; Z28.21 Immunization not carried out because of patient refusal
CPT/HCPCS: 80307; 83036; 84439; 84443

== ENCOUNTER 2018-07-17 08:35 | Inpatient (IN) | payer MEDICARE, MEDICAID ==
[~2018-07-17] VITALS: Ht 182.9 cm; Wt 86.8 kg
[~2018-07-17 08:35] MED LIST changes: +BACTDSB PO; +CEPH500 PO
[2018-07-17] MEDS ORDERED: ZOLPIDEM TARTRATE 10 MG TABLET PO PRN (13:45)
[2018-07-17] MEDS ORDERED: HALOPERIDOL 5 MG TABLET PO PRN (13:45)
[2018-07-17 13:55] VITALS: BP 131/78
[2018-07-17] MEDS ORDERED: PNEUMOCOCCAL VACCINE POLYVALENT 0.5 ML VIAL [PPSV23] IM ONE (15:00)
[2018-07-17 16:00] VITALS: BP 145/86
[2018-07-17] MEDS: LORazepam 2 MG TABLET PO PRN (16:56)
[2018-07-17] MEDS ORDERED: CloNIDine HCL 0.1 MG TABLET PO PRN (18:45)
[2018-07-17] MEDS ORDERED: ONDANSETRON HCL 4 MG TABLET PO PRN (18:45)
[2018-07-17] MEDS ORDERED: PETROLATUM,WHITE 71 GM JELLY TP PRN (18:45)
[2018-07-17] MEDS ORDERED: MAG HYDROX/AL HYDROX/SIMETH ES 30 ML SUSPENSION UDCUP PO PRN (18:45)
[2018-07-17] MEDS ORDERED: NICOTINE 14 MG/24 HOUR PATCH TD PRN (18:45)
[2018-07-17] MEDS ORDERED: ACETAMINOPHEN 325 MG TABLET PO PRN (18:45)
[2018-07-17] MEDS ORDERED: LOPERAMIDE HCL 2 MG CAPSULE PO PRN (18:45)
[2018-07-17] MEDS ORDERED: GuaiFENesin/D-METHORPHAN [SUGAR-FREE] 200-20MG/10 ML SYRUP UDCUP PO PRN (18:45)
[2018-07-17] MEDS ORDERED: IBUPROFEN 400 MG TABLET PO PRN (18:45)
[2018-07-17] MEDS ORDERED: DOCUSATE SODIUM 100 MG CAPSULE PO PRN (18:45)
[2018-07-17] MEDS ORDERED: MAGNESIUM HYDROXIDE SUSPENSION 30 ML UDCUP PO PRN (18:45)
[2018-07-17] MEDS ORDERED: ALBUTEROL SULFATE HFA 90 MCG/PUFF 8 GM INHALER IH PRN (18:45)
[2018-07-17] MEDS: DIVALPROEX SODIUM 500 MG DR TABLET PO SCH (21:00)
[2018-07-18 02:19] VITALS: BP 131/81
[2018-07-18 08:16] VITALS: BP 122/82
[2018-07-18 08:45] LABS: BASOPHILS % (AUTO) 1.1 % (0.0-2.0); EOSINOPHILS % (AUTO) 3.1 % (1.0-6.0); HEMATOCRIT 41.5 % (41-53); HEMOGLOBIN 14.3 g/dL (13.5-17.5); LYMPHOCYTES # (AUTO) 1.5 K/uL (1.0-4.8); LYMPHOCYTES % (AUTO) 26.6 % (22.0-44.0); MEAN CORPUSCULAR HEMOGLOBIN 30.4 pg (26.0-34.0); MEAN CORPUSCULAR HGB CONC 34.5 G/dL (31.0-37.0); MEAN CORPUSCULAR VOLUME 88 fL (80-100); MONOCYTES # (AUTO) 0.5 K/uL (0.1-1.0); MONOCYTES % (AUTO) 8.6 % (2.0-9.0); NEUTROPHILS # (AUTO) 3.5 K/uL (1.8-7.7); NEUTROPHILS % (AUTO) 60.6 % (40.0-70.0); PLATELET COUNT (AUTO) 277 K/uL (150-450); RED BLOOD CELL COUNT(AUTO) 4.71 MIL/uL (4.50-5.90); RED CELL DISTRIBUTION WIDTH 14.2 % (11.5-14.5)
[2018-07-18 09:10] LABS: HEMOGLOBIN A1C 5.5 % (4.5-6.2)
[2018-07-18] MEDS: ARIPiprazole 15 MG TABLET PO SCH (09:23)
[2018-07-18] MEDS: LISINOPRIL 10 MG TABLET PO SCH (09:23)
[2018-07-18] MEDS: BACITRACIN 28.4 GM OINTMENT TP SCH ×2 (09:23→16:30)
[2018-07-18] MEDS: OMEPRAZOLE 20 MG CAPSULE PO SCH (09:23)
[2018-07-18 09:30] LABS: ALANINE AMINOTRANSFERASE 17 U/L (12-78); ALKALINE PHOSPHATASE 69 U/L (46-116); ANION GAP 5 mmol/L (8-16); ASPARTATE AMINOTRANSFERASE 14 U/L (15-37); BILIRUBIN,TOTAL 0.5 mg/dL (0.1-1.0); CALCIUM, TOTAL 8.7 mg/dL (8.8-10.5); CARBON DIOXIDE 30 mmol/L (22-29); CHLORIDE 104 mmol/L (98-107); CHOL/HDL RATIO 2.5 (4.2-7.3); CHOLESTEROL 162 mg/dL (131-200); CREATININE 0.79 mg/dL (0.60-1.30); FREE T4 (FREE THYROXINE) 0.79 ng/dL (0.76-1.46); GLOMERULAR FILTR. RATE CALC > 60 mL/min (>60); GLUCOSE,RANDOM 93 mg/dL (70-110); HDL CHOLESTEROL 66 mg/dL (40-60); LDL CHOL (CALC.) 92 mg/dL (0-130); POTASSIUM 4.2 mmol/L (3.5-5.1); SODIUM SERUM 139 mmol/L (136-145); THYROID STIMULATING HORMONE 0.91 uIU/mL (0.36-3.74); TRIGLYCERIDES 22 mg/dL (15-150); UREA NITROGEN, BLOOD 18 mg/dL (7-18)
[2018-07-18] MEDS: LORazepam 2 MG TABLET PO PRN (15:49)
[2018-07-18 15:51] VITALS: BP 149/82
[2018-07-18 16:01] VITALS: BP 149/82
[2018-07-18] MEDS: DIVALPROEX SODIUM 500 MG DR TABLET PO SCH (20:45)
[2018-07-19 06:32] VITALS: BP 136/81
[2018-07-19] MEDS: LISINOPRIL 10 MG TABLET PO SCH (08:00)
[2018-07-19] MEDS: ARIPiprazole 15 MG TABLET PO SCH (08:00)
[2018-07-19] MEDS: LORazepam 2 MG TABLET PO PRN (08:00)
[2018-07-19] MEDS: OMEPRAZOLE 20 MG CAPSULE PO SCH (08:00)
[2018-07-19] MEDS: BACITRACIN 28.4 GM OINTMENT TP SCH ×2 (08:01→16:40)
[2018-07-19 18:07] VITALS: BP 135/83
[2018-07-19] MEDS: DIVALPROEX SODIUM 500 MG DR TABLET PO SCH (20:24)
[2018-07-20 06:14] VITALS: BP 128/72
[2018-07-20 08:01] VITALS: BP 129/75
[2018-07-20] MEDS: LISINOPRIL 10 MG TABLET PO SCH (08:19)
[2018-07-20] MEDS: OMEPRAZOLE 20 MG CAPSULE PO SCH (08:19)
[2018-07-20] MEDS: BACITRACIN 28.4 GM OINTMENT TP SCH (08:19)
[2018-07-20] MEDS: ARIPiprazole 15 MG TABLET PO SCH (08:19)
[2018-07-20] MEDS ORDERED: BuPROPion HCL 100 MG TABLET PO SCH ×2 (09:00→12:00)
[2018-07-20] MEDS ORDERED: OMEP20 PO (10:07)
[2018-07-20] MEDS ORDERED: BUPR100 PO (10:07)
== END 2018-07-20 11:40 | disposition home or self-care (01) | DRG 885 ==
LOC: B2X 13:48
PROVIDERS: ADMIT Psychiatry & Neurology Psychiatry; ATTEND Psychiatry & Neurology Psychiatry
DX: F20.9 Schizophrenia, unspecified (principal); E11.9 Type 2 diabetes mellitus without complications; E78.5 Hyperlipidemia, unspecified; F10.10 Alcohol abuse, uncomplicated; F15.90 Other stimulant use, unspecified, uncomplicated; F17.200 Nicotine dependence, unspecified, uncomplicated; F41.9 Anxiety disorder, unspecified; I10 Essential (primary) hypertension; F19.10 Other psychoactive substance abuse, uncomplicated; J44.9 Chronic obstructive pulmonary disease, unspecified; K21.9 Gastro-esophageal reflux disease without esophagitis; Z59.0 Homelessness; Z71.41 Alcohol abuse counseling and surveillance of alcoholic; Z71.6 Tobacco abuse counseling; Z79.899 Other long term (current) drug therapy; Z91.14 Patient's other noncompliance with medication regimen; Z71.51 Drug abuse counseling and surveillance of drug abuser
CPT/HCPCS: 83036; 84439; 84443

== ENCOUNTER 2018-08-17 12:13 | Inpatient (IN) | payer MEDICARE, MEDICAID ==
[~2018-08-17] VITALS: Ht 182.9 cm; Wt 84.4 kg
[~2018-08-17 12:13] MED LIST changes: -BACTDSB PO; -CEPH500 PO; +OMEP20 PO
[2018-08-17] MEDS ORDERED: HALOPERIDOL 5 MG TABLET PO PRN (12:30)
[2018-08-17] MEDS ORDERED: ZOLPIDEM TARTRATE 10 MG TABLET PO PRN (12:30)
[2018-08-17 12:33] VITALS: BP 147/79
[2018-08-17 12:50] VITALS: BP 135/87
[2018-08-17] MEDS ORDERED: PNEUMOCOCCAL VACCINE POLYVALENT 0.5 ML VIAL [PPSV23] IM ONE (15:15)
[2018-08-17] MEDS ORDERED: DOCUSATE SODIUM 100 MG CAPSULE PO PRN (15:45)
[2018-08-17] MEDS ORDERED: ACETAMINOPHEN 325 MG TABLET PO PRN (15:45)
[2018-08-17] MEDS ORDERED: ALBUTEROL SULFATE HFA 90 MCG/PUFF 8 GM INHALER IH PRN (15:45)
[2018-08-17] MEDS ORDERED: PETROLATUM,WHITE 71 GM JELLY TP PRN (15:45)
[2018-08-17] MEDS ORDERED: LOPERAMIDE HCL 2 MG CAPSULE PO PRN (15:45)
[2018-08-17] MEDS ORDERED: MAGNESIUM HYDROXIDE SUSPENSION 30 ML UDCUP PO PRN (15:45)
[2018-08-17] MEDS ORDERED: NICOTINE 14 MG/24 HOUR PATCH TD PRN (15:45)
[2018-08-17] MEDS ORDERED: MAG HYDROX/AL HYDROX/SIMETH ES 30 ML SUSPENSION UDCUP PO PRN (15:45)
[2018-08-17] MEDS ORDERED: CloNIDine HCL 0.1 MG TABLET PO PRN (15:45)
[2018-08-17] MEDS ORDERED: ONDANSETRON HCL 4 MG TABLET PO PRN (15:45)
[2018-08-17] MEDS ORDERED: GuaiFENesin/D-METHORPHAN [SUGAR-FREE] 200-20MG/10 ML SYRUP UDCUP PO PRN (15:45)
[2018-08-17] MEDS ORDERED: IBUPROFEN 400 MG TABLET PO PRN (15:45)
[2018-08-17 17:21] VITALS: BP 141/82
[2018-08-17] MEDS: LORazepam 2 MG TABLET PO PRN (17:24)
[2018-08-17] MEDS: DIVALPROEX SODIUM 500 MG ER TABLET PO SCH (22:16)
[2018-08-18 04:44] VITALS: BP 131/82
[2018-08-18 08:45] VITALS: BP 111/68
[2018-08-18] MEDS: ARIPiprazole 15 MG TABLET PO SCH (08:48)
[2018-08-18] MEDS: LISINOPRIL 10 MG TABLET PO SCH (08:48)
[2018-08-18 09:14] LABS: AMPHET/METH SCREEN,URINE NEGATIVE (NEGATIVE); BARBITURATE SCREEN, URINE NEGATIVE (NEGATIVE); BENZODIAZEPINES SCREEN,URINE NEGATIVE (NEGATIVE); CANNABINOID SCREEN,URINE POSITIVE (NEGATIVE); COCAINE SCREEN,URINE NEGATIVE (NEGATIVE); METHADONE SCREEN, URINE NEGATIVE (NEGATIVE); OPIATE SCREEN,URINE NEGATIVE (NEGATIVE)
[2018-08-18 09:19] LABS: PHENCYCLIDINE SCREEN,URINE NEGATIVE (NEGATIVE)
[2018-08-18 09:25] LABS: APPEARANCE,URINE CLEAR (CLEAR); BILIRUBIN,URINE NEGATIVE (NEGATIVE); GLUCOSE, URINE (UA) NEGATIVE (NEGATIVE); KETONES,URINE NEGATIVE (NEGATIVE); LEUKOCYTE ESTERASE ,URINE NEGATIVE (NEGATIVE); NITRATE,URINE NEGATIVE (NEGATIVE); OCCULT BLOOD,URINE NEGATIVE (NEGATIVE); PH,URINE 7.5 (5.0-8.0); PROTEIN,URINE NEGATIVE (NEGATIVE)
[2018-08-18] MEDS: LORazepam 2 MG TABLET PO PRN (14:04)
[2018-08-18] MEDS: DIVALPROEX SODIUM 500 MG ER TABLET PO SCH (21:46)
[2018-08-19 03:08] VITALS: BP 132/85
[2018-08-19] MEDS: ARIPiprazole 15 MG TABLET PO SCH (09:00)
[2018-08-19] MEDS: LISINOPRIL 10 MG TABLET PO SCH (09:00)
[2018-08-19] MEDS: LORazepam 2 MG TABLET PO PRN ×2 (11:02→17:10)
[2018-08-19 16:12] VITALS: BP 120/60
[2018-08-19] MEDS: DIVALPROEX SODIUM 500 MG ER TABLET PO SCH (20:29)
[2018-08-20 08:05] VITALS: BP 128/94
[2018-08-20] MEDS: LISINOPRIL 10 MG TABLET PO SCH (08:13)
[2018-08-20] MEDS: ARIPiprazole 15 MG TABLET PO SCH (08:13)
== END 2018-08-20 14:20 | disposition home or self-care (01) | DRG 885 ==
LOC: B2X 12:31
PROVIDERS: ADMIT Psychiatry & Neurology Psychiatry; ATTEND Psychiatry & Neurology Psychiatry
DX: F20.0 Paranoid schizophrenia (principal); I10 Essential (primary) hypertension; K21.9 Gastro-esophageal reflux disease without esophagitis; E78.5 Hyperlipidemia, unspecified; J44.9 Chronic obstructive pulmonary disease, unspecified; E11.9 Type 2 diabetes mellitus without complications; F10.10 Alcohol abuse, uncomplicated; F17.210 Nicotine dependence, cigarettes, uncomplicated; Y90.9 Presence of alcohol in blood, level not specified; R51 Headache; Z79.899 Other long term (current) drug therapy; F15.90 Other stimulant use, unspecified, uncomplicated; Z59.0 Homelessness; Z71.41 Alcohol abuse counseling and surveillance of alcoholic; Z71.51 Drug abuse counseling and surveillance of drug abuser; Z88.8 Allergy status to other drugs, medicaments and biological substances; Z91.5 Personal history of self-harm
CPT/HCPCS: 80307; 87081

== ENCOUNTER 2018-09-22 15:31 | Emergency (ER) | payer MEDICARE, MEDICAID ==
[~2018-09-22] VITALS: Ht 182.9 cm; Wt 90.5 kg
[~2018-09-22 15:31] MED LIST changes: -OMEP20 PO
[2018-09-22 15:46] VITALS: BP 152/82
== END 2018-09-22 17:33 | disposition left against medical advice (07) ==
LOC: EMS 15:32
DX: R45.851 Suicidal ideations (principal); Z53.21 Procedure and treatment not carried out due to patient leaving prior to being seen by health care provider

== ENCOUNTER 2018-09-27 18:13 | Emergency (ER) | payer OTHER | END 2018-09-27 18:27 | disposition left against medical advice (07) | LOC: EMS 18:15 | DX: I10 Essential (primary) hypertension (principal); Z53.21 Procedure and treatment not carried out due to patient leaving prior to being seen by health care provider ==

== ENCOUNTER 2018-09-28 07:03 | Inpatient (IN) | payer MEDICARE, MEDICAID ==
[~2018-09-28] VITALS: Ht 182.9 cm; Wt 81.9 kg
[2018-09-28] MEDS ORDERED: DiphenhydrAMINE HCL 25 MG CAPSULE PO ONE (09:15)
[2018-09-28] MEDS ORDERED: LORazepam 2 MG TABLET PO ONE (09:30)
[2018-09-28 09:31] LABS: BASOPHILS % (AUTO) 0.8 % (0.0-2.0); EOSINOPHILS % (AUTO) 0.5 % (1.0-6.0); HEMATOCRIT 45.4 % (41-53); HEMOGLOBIN 15.2 g/dL (13.5-17.5); LYMPHOCYTES # (AUTO) 1.4 K/uL (1.0-4.8); MEAN CORPUSCULAR HEMOGLOBIN 29.5 pg (26.0-34.0); MEAN CORPUSCULAR HGB CONC 33.6 G/dL (31.0-37.0); MEAN CORPUSCULAR VOLUME 88 fL (80-100); MONOCYTES # (AUTO) 0.4 K/uL (0.1-1.0); MONOCYTES % (AUTO) 4.9 % (2.0-9.0); NEUTROPHILS # (AUTO) 6.7 K/uL (1.8-7.7); NEUTROPHILS % (AUTO) 77.8 % (40.0-70.0); PLATELET COUNT (AUTO) 277 K/uL (150-450); RED BLOOD CELL COUNT(AUTO) 5.17 MIL/uL (4.50-5.90); RED CELL DISTRIBUTION WIDTH 14.1 % (11.5-14.5)
[2018-09-28 09:40] LABS: ANION GAP 7 mmol/L (8-16); CALCIUM, TOTAL 9.4 mg/dL (8.8-10.5); CARBON DIOXIDE 28 mmol/L (22-29); CHLORIDE 104 mmol/L (98-107); CREATININE 0.65 mg/dL (0.60-1.30); GLOMERULAR FILTR. RATE CALC > 60 mL/min (>60); GLUCOSE,RANDOM 108 mg/dL (70-110); POTASSIUM 4.1 mmol/L (3.5-5.1); SODIUM SERUM 139 mmol/L (136-145); UREA NITROGEN, BLOOD 10 mg/dL (7-18)
[2018-09-28 09:45] LABS: ALANINE AMINOTRANSFERASE 21 U/L (12-78); ALBUMIN 3.5 g/dL (3.4-5.0); ALKALINE PHOSPHATASE 71 U/L (46-116); ASPARTATE AMINOTRANSFERASE 28 U/L (15-37); BILIRUBIN,TOTAL 0.7 mg/dL (0.1-1.0); TOTAL PROTEIN, SERUM 7.7 g/dL (6.4-8.2)
[2018-09-28 09:46] LABS: AMPHET/METH SCREEN,URINE NEGATIVE (NEGATIVE); BARBITURATE SCREEN, URINE NEGATIVE (NEGATIVE); BENZODIAZEPINES SCREEN,URINE NEGATIVE (NEGATIVE); CANNABINOID SCREEN,URINE NEGATIVE (NEGATIVE); COCAINE SCREEN,URINE NEGATIVE (NEGATIVE); METHADONE SCREEN, URINE NEGATIVE (NEGATIVE); OPIATE SCREEN,URINE NEGATIVE (NEGATIVE)
[2018-09-28 09:48] LABS: PHENCYCLIDINE SCREEN,URINE NEGATIVE (NEGATIVE)
[2018-09-28] MEDS ORDERED: HALOPERIDOL 5 MG TABLET PO PRN (10:15)
[2018-09-28] MEDS ORDERED: ZOLPIDEM TARTRATE 10 MG TABLET PO PRN (10:15)
[2018-09-28 12:00] VITALS: BP 166/88
[2018-09-28] MEDS ORDERED: ALBUTEROL SULFATE HFA 90 MCG/PUFF 8 GM INHALER IH PRN (12:45)
[2018-09-28] MEDS ORDERED: MAGNESIUM HYDROXIDE SUSPENSION 30 ML UDCUP PO PRN (12:45)
[2018-09-28] MEDS ORDERED: MAG HYDROX/AL HYDROX/SIMETH ES 30 ML SUSPENSION UDCUP PO PRN (12:45)
[2018-09-28] MEDS ORDERED: ONDANSETRON HCL 4 MG TABLET PO PRN (12:45)
[2018-09-28] MEDS ORDERED: IBUPROFEN 600 MG TABLET PO PRN (12:45)
[2018-09-28] MEDS ORDERED: BENZOCAINE/MENTHOL LOZENGE MM PRN (12:45)
[2018-09-28] MEDS ORDERED: LOPERAMIDE HCL 2 MG CAPSULE PO PRN (12:45)
[2018-09-28] MEDS ORDERED: PETROLATUM,WHITE 71 GM JELLY TP PRN (12:45)
[2018-09-28] MEDS ORDERED: CloNIDine HCL 0.1 MG TABLET PO PRN (12:45)
[2018-09-28] MEDS ORDERED: ACETAMINOPHEN 325 MG TABLET PO PRN (12:45)
[2018-09-28] MEDS ORDERED: BACITRACIN 28.4 GM OINTMENT TP PRN (12:45)
[2018-09-28] MEDS ORDERED: LISINOPRIL 10 MG TABLET PO ONE (12:45)
[2018-09-28 14:24] VITALS: BP 129/65
[2018-09-28 16:49] VITALS: BP 127/74
[2018-09-29 01:04] VITALS: BP 126/77
[2018-09-29 05:35] VITALS: BP 140/85
[2018-09-29] MEDS: LORazepam 2 MG TABLET PO PRN ×2 (05:35→13:34)
[2018-09-29] MEDS: OMEPRAZOLE 20 MG CAPSULE PO SCH (09:04)
[2018-09-29] MEDS: DOCUSATE SODIUM 100 MG CAPSULE PO SCH (09:04)
[2018-09-29] MEDS: LISINOPRIL 10 MG TABLET PO SCH (09:04)
[2018-09-29 16:10] VITALS: BP 138/80
[2018-09-29] MEDS: DIVALPROEX SODIUM 500 MG DR TABLET PO SCH (16:50)
[2018-09-30 06:03] VITALS: BP 128/78
[2018-09-30] MEDS ORDERED: ARIPiprazole 15 MG TABLET PO SCH (09:00)
[2018-09-30] MEDS: LISINOPRIL 10 MG TABLET PO SCH (09:29)
[2018-09-30] MEDS: OMEPRAZOLE 20 MG CAPSULE PO SCH (09:29)
[2018-09-30] MEDS: DOCUSATE SODIUM 100 MG CAPSULE PO SCH (09:29)
[2018-09-30] MEDS: DIVALPROEX SODIUM 500 MG DR TABLET PO SCH (09:29)
[2018-09-30] MEDS ORDERED: DSS100 PO (12:41)
[2018-09-30] MEDS ORDERED: DIVA-78 PO (12:41)
[2018-09-30] MEDS ORDERED: ARIP15TA2 PO (12:41)
[2018-09-30] MEDS ORDERED: OMEP20 PO (12:41)
[2018-09-30] MEDS ORDERED: LISI-662 PO (12:41)
[2018-09-30] MEDS ORDERED: ALBU8HFA IH (12:46)
== END 2018-09-30 14:10 | disposition home or self-care (01) | DRG 885 ==
LOC: EMS 07:07 → B2S 10:47
PROVIDERS: ADMIT Psychiatry & Neurology Psychiatry; ATTEND Psychiatry & Neurology Psychiatry
DX: F20.0 Paranoid schizophrenia (principal); Z88.8 Allergy status to other drugs, medicaments and biological substances; Z59.0 Homelessness; E78.00 Pure hypercholesterolemia, unspecified; F12.90 Cannabis use, unspecified, uncomplicated; F15.10 Other stimulant abuse, uncomplicated; F17.210 Nicotine dependence, cigarettes, uncomplicated; G47.00 Insomnia, unspecified; I10 Essential (primary) hypertension; J44.9 Chronic obstructive pulmonary disease, unspecified; K21.9 Gastro-esophageal reflux disease without esophagitis
CPT/HCPCS: 87081; 99406; G0480

== ENCOUNTER 2018-12-03 12:05 | Inpatient (IN) | payer MEDICARE, MEDICAID ==
[~2018-12-03] VITALS: Ht 182.9 cm; Wt 83.9 kg
[~2018-12-03 12:05] MED LIST changes: +ALBU8HFA IH; +DIVA-78 PO; -DIVA500T69 PO; +DSS100 PO; -LISI-661 PO; +LISI-662 PO; +OMEP20 PO
[2018-12-03] MEDS ORDERED: ZOLPIDEM TARTRATE 10 MG TABLET PO PRN (13:30)
[2018-12-03 14:11] VITALS: BP 143/101
[2018-12-03] MEDS ORDERED: DOCUSATE SODIUM 100 MG CAPSULE PO PRN (16:30)
[2018-12-03] MEDS ORDERED: IBUPROFEN 400 MG TABLET PO PRN (16:30)
[2018-12-03] MEDS ORDERED: MAG HYDROX/AL HYDROX/SIMETH ES 30 ML SUSPENSION UDCUP PO PRN (16:30)
[2018-12-03] MEDS ORDERED: CloNIDine HCL 0.1 MG TABLET PO PRN (16:30)
[2018-12-03] MEDS ORDERED: GuaiFENesin/D-METHORPHAN [SUGAR-FREE] 200-20MG/10 ML SYRUP UDCUP PO PRN (16:30)
[2018-12-03] MEDS ORDERED: PETROLATUM,WHITE 28 GM JELLY TP PRN (16:30)
[2018-12-03] MEDS ORDERED: MAGNESIUM HYDROXIDE SUSPENSION 30 ML UDCUP PO PRN (16:30)
[2018-12-03] MEDS ORDERED: ACETAMINOPHEN 325 MG TABLET PO PRN (16:30)
[2018-12-03] MEDS ORDERED: ONDANSETRON HCL 4 MG TABLET PO PRN (16:30)
[2018-12-03] MEDS ORDERED: LOPERAMIDE HCL 2 MG CAPSULE PO PRN (16:30)
[2018-12-03] MEDS ORDERED: ALBUTEROL SULFATE HFA 90 MCG/PUFF 8 GM INHALER IH PRN (16:30)
[2018-12-03] MEDS ORDERED: NICOTINE 14 MG/24 HOUR PATCH TD PRN (16:30)
[2018-12-03] MEDS: HALOPERIDOL 5 MG TABLET PO PRN (17:15)
[2018-12-03] MEDS: LORazepam 2 MG TABLET PO PRN (17:15)
[2018-12-03] MEDS ORDERED: PNEUMOCOCCAL VACCINE POLYVALENT 0.5 ML VIAL [PPSV23] IM ONE (17:45)
[2018-12-04 08:02] VITALS: BP 142/79
[2018-12-04 08:53] LABS: AMPHET/METH SCREEN,URINE NEGATIVE (NEGATIVE); BARBITURATE SCREEN, URINE NEGATIVE (NEGATIVE); BENZODIAZEPINES SCREEN,URINE NEGATIVE (NEGATIVE); CANNABINOID SCREEN,URINE POSITIVE (NEGATIVE); COCAINE SCREEN,URINE NEGATIVE (NEGATIVE); METHADONE SCREEN, URINE NEGATIVE (NEGATIVE); OPIATE SCREEN,URINE NEGATIVE (NEGATIVE)
[2018-12-04 08:57] LABS: PHENCYCLIDINE SCREEN,URINE NEGATIVE (NEGATIVE)
[2018-12-04] MEDS: DIVALPROEX SODIUM 500 MG DR TABLET PO SCH (17:06)
[2018-12-04] MEDS: LORazepam 2 MG TABLET PO PRN (17:06)
[2018-12-04] MEDS: HALOPERIDOL 5 MG TABLET PO PRN (17:06)
[2018-12-05 06:33] VITALS: BP 137/88
[2018-12-05] MEDS: DIVALPROEX SODIUM 500 MG DR TABLET PO SCH ×2 (09:00→17:36)
[2018-12-05] MEDS: ARIPiprazole 15 MG TABLET PO SCH (09:30)
[2018-12-05] MEDS: LORazepam 2 MG TABLET PO PRN (15:00)
[2018-12-06] MEDS: ARIPiprazole 15 MG TABLET PO SCH (08:51)
[2018-12-06] MEDS: DIVALPROEX SODIUM 500 MG DR TABLET PO SCH (08:56)
[2018-12-06] MEDS ORDERED: ARIP15TA2 PO (10:52)
[2018-12-06] MEDS ORDERED: VALP250 PO (10:52)
== END 2018-12-06 13:30 | disposition home or self-care (01) | DRG 885 ==
LOC: B3A 13:26
PROVIDERS: ADMIT Psychiatry & Neurology Psychiatry; ATTEND Psychiatry & Neurology Psychiatry
DX: F25.0 Schizoaffective disorder, bipolar type (principal); F10.10 Alcohol abuse, uncomplicated; F41.9 Anxiety disorder, unspecified; I10 Essential (primary) hypertension; J44.9 Chronic obstructive pulmonary disease, unspecified; K21.9 Gastro-esophageal reflux disease without esophagitis; K59.00 Constipation, unspecified; F12.10 Cannabis abuse, uncomplicated; Z71.41 Alcohol abuse counseling and surveillance of alcoholic; Z59.0 Homelessness
CPT/HCPCS: 80307; 90732

== ENCOUNTER 2018-12-10 22:51 | Emergency (ER) | payer OTHER ==
[~2018-12-10] VITALS: Ht 182.9 cm; Wt 83.9 kg
[~2018-12-10 22:51] MED LIST changes: -ALBU8HFA IH; -DIVA-78 PO; -DSS100 PO; -LISI-662 PO; -OMEP20 PO; +VALP250 PO
[2018-12-10 23:26] VITALS: BP 139/90
[2018-12-10 23:44] LABS: BASOPHILS % (AUTO) 0.6 % (0.0-2.0); EOSINOPHILS % (AUTO) 2.9 % (1.0-6.0); HEMATOCRIT 39.4 % (41-53); HEMOGLOBIN 13.4 g/dL (13.5-17.5); LYMPHOCYTES # (AUTO) 2.4 K/uL (1.0-4.8); LYMPHOCYTES % (AUTO) 34.1 % (22.0-44.0); MEAN CORPUSCULAR HEMOGLOBIN 29.4 pg (26.0-34.0); MEAN CORPUSCULAR VOLUME 87 fL (80-100); MONOCYTES # (AUTO) 0.6 K/uL (0.1-1.0); NEUTROPHILS # (AUTO) 3.8 K/uL (1.8-7.7); NEUTROPHILS % (AUTO) 54.4 % (40.0-70.0); PLATELET COUNT (AUTO) 222 K/uL (150-450); RED BLOOD CELL COUNT(AUTO) 4.56 MIL/uL (4.50-5.90); RED CELL DISTRIBUTION WIDTH 13.9 % (11.5-14.5)
[2018-12-10 23:53] LABS: ANION GAP 6 mmol/L (8-16); CALCIUM, TOTAL 8.7 mg/dL (8.8-10.5); CARBON DIOXIDE 28 mmol/L (22-29); CHLORIDE 105 mmol/L (98-107); CREATININE 0.76 mg/dL (0.60-1.30); GLOMERULAR FILTR. RATE CALC > 60 mL/min (>60); GLUCOSE,RANDOM 112 mg/dL (70-110); POTASSIUM 3.4 mmol/L (3.5-5.1); SODIUM SERUM 139 mmol/L (136-145); UREA NITROGEN, BLOOD 10 mg/dL (7-18)
[2018-12-10 23:58] LABS: ALANINE AMINOTRANSFERASE 17 U/L (12-78); ALBUMIN 3.3 g/dL (3.4-5.0); ALKALINE PHOSPHATASE 72 U/L (46-116); ASPARTATE AMINOTRANSFERASE 16 U/L (15-37); BILIRUBIN,TOTAL 0.4 mg/dL (0.1-1.0); TOTAL PROTEIN, SERUM 6.9 g/dL (6.4-8.2)
[2018-12-11 00:22] LABS: AMPHET/METH SCREEN,URINE NEGATIVE (NEGATIVE); BARBITURATE SCREEN, URINE NEGATIVE (NEGATIVE); BENZODIAZEPINES SCREEN,URINE NEGATIVE (NEGATIVE); CANNABINOID SCREEN,URINE POSITIVE (NEGATIVE); COCAINE SCREEN,URINE NEGATIVE (NEGATIVE); METHADONE SCREEN, URINE NEGATIVE (NEGATIVE); OPIATE SCREEN,URINE NEGATIVE (NEGATIVE)
[2018-12-11 00:30] LABS: PHENCYCLIDINE SCREEN,URINE NEGATIVE (NEGATIVE)
== END 2018-12-11 05:24 | disposition home or self-care (01) ==
LOC: EMS 22:53
DX: F20.9 Schizophrenia, unspecified (principal); E78.00 Pure hypercholesterolemia, unspecified; F17.210 Nicotine dependence, cigarettes, uncomplicated; F12.90 Cannabis use, unspecified, uncomplicated; Z59.0 Homelessness; Z88.8 Allergy status to other drugs, medicaments and biological substances; Z79.899 Other long term (current) drug therapy
CPT/HCPCS: 36415; 80053; 80307; 85025; 99284; G0480

== ENCOUNTER 2019-01-27 22:35 | Inpatient (IN) | payer MEDICARE, MEDICAID ==
[~2019-01-27] VITALS: Ht 182.9 cm; Wt 80.3 kg
[2019-01-27] MEDS ORDERED: HALOPERIDOL 5 MG TABLET PO PRN (23:00)
[2019-01-27] MEDS ORDERED: ZOLPIDEM TARTRATE 10 MG TABLET PO PRN (23:00)
[2019-01-28 00:12] VITALS: BP 129/86
[2019-01-28] MEDS ORDERED: PNEUMOCOCCAL VACCINE POLYVALENT 0.5 ML VIAL [PPSV23] IM ONE (00:15)
[2019-01-28 07:29] LABS: BASOPHILS % (AUTO) 1.1 % (0.0-2.0); EOSINOPHILS % (AUTO) 3.3 % (1.0-6.0); HEMATOCRIT 43.1 % (41-53); HEMOGLOBIN 14.4 g/dL (13.5-17.5); LYMPHOCYTES # (AUTO) 1.8 K/uL (1.0-4.8); LYMPHOCYTES % (AUTO) 35.6 % (22.0-44.0); MEAN CORPUSCULAR HEMOGLOBIN 29.8 pg (26.0-34.0); MEAN CORPUSCULAR HGB CONC 33.3 G/dL (31.0-37.0); MEAN CORPUSCULAR VOLUME 90 fL (80-100); MONOCYTES # (AUTO) 0.4 K/uL (0.1-1.0); MONOCYTES % (AUTO) 8.3 % (2.0-9.0); NEUTROPHILS # (AUTO) 2.6 K/uL (1.8-7.7); NEUTROPHILS % (AUTO) 51.7 % (40.0-70.0); PLATELET COUNT (AUTO) 231 K/uL (150-450); RED BLOOD CELL COUNT(AUTO) 4.82 MIL/uL (4.50-5.90); RED CELL DISTRIBUTION WIDTH 14.4 % (11.5-14.5)
[2019-01-28] MEDS ORDERED: MAG HYDROX/AL HYDROX/SIMETH ES 30 ML SUSPENSION UDCUP PO PRN (07:30)
[2019-01-28] MEDS ORDERED: CloNIDine HCL 0.1 MG TABLET PO PRN (07:30)
[2019-01-28] MEDS ORDERED: ONDANSETRON HCL 4 MG TABLET PO PRN (07:30)
[2019-01-28] MEDS ORDERED: PETROLATUM,WHITE 28 GM JELLY TP PRN (07:30)
[2019-01-28] MEDS ORDERED: IBUPROFEN 400 MG TABLET PO PRN (07:30)
[2019-01-28] MEDS ORDERED: ALBUTEROL SULFATE HFA 90 MCG/PUFF 8 GM INHALER IH PRN (07:30)
[2019-01-28] MEDS ORDERED: MAGNESIUM HYDROXIDE SUSPENSION 30 ML UDCUP PO PRN (07:30)
[2019-01-28] MEDS ORDERED: GuaiFENesin/D-METHORPHAN [SUGAR-FREE] 200-20MG/10 ML SYRUP UDCUP PO PRN (07:30)
[2019-01-28] MEDS ORDERED: DOCUSATE SODIUM 100 MG CAPSULE PO PRN (07:30)
[2019-01-28] MEDS ORDERED: LOPERAMIDE HCL 2 MG CAPSULE PO PRN (07:30)
[2019-01-28] MEDS ORDERED: NICOTINE 14 MG/24 HOUR PATCH TD PRN (07:30)
[2019-01-28] MEDS ORDERED: ACETAMINOPHEN 325 MG TABLET PO PRN (07:30)
[2019-01-28 07:47] LABS: HEMOGLOBIN A1C 5.7 % (4.5-6.2)
[2019-01-28 08:11] LABS: ALANINE AMINOTRANSFERASE 15 U/L (12-78); ALKALINE PHOSPHATASE 61 U/L (46-116); ANION GAP 9 mmol/L (8-16); ASPARTATE AMINOTRANSFERASE 14 U/L (15-37); BILIRUBIN,TOTAL 0.6 mg/dL (0.1-1.0); CALCIUM, TOTAL 9.1 mg/dL (8.8-10.5); CARBON DIOXIDE 26 mmol/L (22-29); CHLORIDE 105 mmol/L (98-107); CHOL/HDL RATIO 2.4 (4.2-7.3); CHOLESTEROL 169 mg/dL (131-200); CREATININE 0.71 mg/dL (0.60-1.30); FREE T4 (FREE THYROXINE) 1.02 ng/dL (0.76-1.46); GLOMERULAR FILTR. RATE CALC > 60 mL/min (>60); GLUCOSE,RANDOM 84 mg/dL (70-110); HDL CHOLESTEROL 70 mg/dL (40-60); LDL CHOL (CALC.) 90 mg/dL (0-130); SODIUM SERUM 140 mmol/L (136-145); THYROID STIMULATING HORMONE 0.85 uIU/mL (0.36-3.74); TRIGLYCERIDES 46 mg/dL (15-150); UREA NITROGEN, BLOOD 22 mg/dL (7-18)
[2019-01-28] MEDS: DIVALPROEX SODIUM 500 MG DR TABLET PO SCH ×2 (09:50→20:27)
[2019-01-28] MEDS: LORazepam 2 MG TABLET PO PRN ×2 (09:50→16:32)
[2019-01-28] MEDS: ARIPiprazole 15 MG TABLET PO SCH (09:50)
[2019-01-29 08:18] VITALS: BP 142/81
[2019-01-29] MEDS: ARIPiprazole 15 MG TABLET PO SCH (08:36)
[2019-01-29] MEDS: DIVALPROEX SODIUM 500 MG DR TABLET PO SCH ×2 (08:37→20:19)
[2019-01-29] MEDS: LORazepam 2 MG TABLET PO PRN ×2 (08:37→20:19)
[2019-01-30] MEDS: ARIPiprazole 15 MG TABLET PO SCH (09:08)
[2019-01-30] MEDS: DIVALPROEX SODIUM 500 MG DR TABLET PO SCH (09:08)
== END 2019-01-30 13:40 | disposition home or self-care (01) | DRG 885 ==
LOC: B3A 23:28
PROVIDERS: ATTEND Psychiatry & Neurology Psychiatry
DX: F25.1 Schizoaffective disorder, depressive type (principal); R45.851 Suicidal ideations; E78.5 Hyperlipidemia, unspecified; F10.10 Alcohol abuse, uncomplicated; I10 Essential (primary) hypertension; J44.9 Chronic obstructive pulmonary disease, unspecified; F19.10 Other psychoactive substance abuse, uncomplicated; F41.9 Anxiety disorder, unspecified; F32.9 Major depressive disorder, single episode, unspecified; K21.9 Gastro-esophageal reflux disease without esophagitis; Z71.41 Alcohol abuse counseling and surveillance of alcoholic; Z91.5 Personal history of self-harm; Z88.8 Allergy status to other drugs, medicaments and biological substances; Z71.51 Drug abuse counseling and surveillance of drug abuser; Z59.0 Homelessness
CPT/HCPCS: 83036; 84439; 84443; 90732

== ENCOUNTER 2019-03-03 17:21 | Inpatient (IN) | payer MEDICARE, MEDICAID ==
[~2019-03-03] VITALS: Ht 182.9 cm; Wt 82.6 kg
[2019-03-03 20:02] VITALS: BP 155/93
[2019-03-03] MEDS ORDERED: HALOPERIDOL 5 MG TABLET PO PRN (20:15)
[2019-03-03] MEDS ORDERED: ZOLPIDEM TARTRATE 10 MG TABLET PO PRN (20:15)
[2019-03-03] MEDS ORDERED: MAGNESIUM HYDROXIDE SUSPENSION 30 ML UDCUP PO PRN (21:30)
[2019-03-03] MEDS ORDERED: GuaiFENesin/D-METHORPHAN [SUGAR-FREE] 200-20MG/10 ML SYRUP UDCUP PO PRN (21:30)
[2019-03-03] MEDS ORDERED: ACETAMINOPHEN 325 MG TABLET PO PRN (21:30)
[2019-03-03] MEDS ORDERED: CloNIDine HCL 0.1 MG TABLET PO PRN (21:30)
[2019-03-03] MEDS ORDERED: DOCUSATE SODIUM 100 MG CAPSULE PO PRN (21:30)
[2019-03-03] MEDS ORDERED: IBUPROFEN 400 MG TABLET PO PRN (21:30)
[2019-03-03] MEDS ORDERED: ALBUTEROL SULFATE HFA 90 MCG/PUFF 8 GM INHALER IH PRN (21:30)
[2019-03-03] MEDS ORDERED: NICOTINE 14 MG/24 HOUR PATCH TD PRN (21:30)
[2019-03-03] MEDS ORDERED: PETROLATUM,WHITE 28 GM JELLY TP PRN (21:30)
[2019-03-03] MEDS ORDERED: MAG HYDROX/AL HYDROX/SIMETH ES 30 ML SUSPENSION UDCUP PO PRN (21:30)
[2019-03-03] MEDS ORDERED: ONDANSETRON HCL 4 MG TABLET PO PRN (21:30)
[2019-03-03] MEDS ORDERED: LOPERAMIDE HCL 2 MG CAPSULE PO PRN (21:30)
[2019-03-03 21:33] VITALS: BP 147/67
[2019-03-03] MEDS ORDERED: PNEUMOCOCCAL VACCINE POLYVALENT 0.5 ML VIAL [PPSV23] IM ONE (23:00)
[2019-03-04 07:50] LABS: EOSINOPHILS % (AUTO) 3.3 % (1.0-6.0); HEMATOCRIT 41.1 % (41-53); HEMOGLOBIN 13.7 g/dL (13.5-17.5); LYMPHOCYTES # (AUTO) 1.8 K/uL (1.0-4.8); LYMPHOCYTES % (AUTO) 31.3 % (22.0-44.0); MEAN CORPUSCULAR HGB CONC 33.4 G/dL (31.0-37.0); MEAN CORPUSCULAR VOLUME 90 fL (80-100); MONOCYTES # (AUTO) 0.5 K/uL (0.1-1.0); MONOCYTES % (AUTO) 8.7 % (2.0-9.0); NEUTROPHILS # (AUTO) 3.2 K/uL (1.8-7.7); NEUTROPHILS % (AUTO) 55.7 % (40.0-70.0); PLATELET COUNT (AUTO) 214 K/uL (150-450); RED BLOOD CELL COUNT(AUTO) 4.58 MIL/uL (4.50-5.90); RED CELL DISTRIBUTION WIDTH 14.3 % (11.5-14.5)
[2019-03-04 08:32] LABS: ALANINE AMINOTRANSFERASE 13 U/L (12-78); ALBUMIN 3.3 g/dL (3.4-5.0); ALKALINE PHOSPHATASE 63 U/L (46-116); ANION GAP 7 mmol/L (8-16); ASPARTATE AMINOTRANSFERASE 11 U/L (15-37); BILIRUBIN,TOTAL 0.7 mg/dL (0.1-1.0); CARBON DIOXIDE 26 mmol/L (22-29); CHLORIDE 108 mmol/L (98-107); CHOL/HDL RATIO 2.5 (4.2-7.3); CHOLESTEROL 175 mg/dL (131-200); CREATININE 0.62 mg/dL (0.60-1.30); FREE T4 (FREE THYROXINE) 1.03 ng/dL (0.76-1.46); GLOMERULAR FILTR. RATE CALC > 60 mL/min (>60); GLUCOSE,RANDOM 85 mg/dL (70-110); HDL CHOLESTEROL 70 mg/dL (40-60); LDL CHOL (CALC.) 96 mg/dL (0-130); POTASSIUM 3.8 mmol/L (3.5-5.1); SODIUM SERUM 141 mmol/L (136-145); THYROID STIMULATING HORMONE 0.63 uIU/mL (0.36-3.74); TOTAL PROTEIN, SERUM 6.8 g/dL (6.4-8.2); TRIGLYCERIDES 44 mg/dL (15-150); UREA NITROGEN, BLOOD 22 mg/dL (7-18)
[2019-03-04] MEDS: LORazepam 2 MG TABLET PO PRN ×2 (10:58→16:52)
[2019-03-04 16:12] VITALS: BP 112/66
[2019-03-04] MEDS: VALPROIC ACID 250 MG CAPSULE PO SCH (16:52)
[2019-03-04] MEDS: AmLODIPine BESYLATE 5 MG TABLET PO SCH (16:52)
[2019-03-05] MEDS: VALPROIC ACID 250 MG CAPSULE PO SCH ×2 (08:49→16:51)
[2019-03-05] MEDS: LORazepam 2 MG TABLET PO PRN ×2 (08:49→16:51)
[2019-03-05] MEDS: AmLODIPine BESYLATE 5 MG TABLET PO SCH (08:50)
[2019-03-05] MEDS: ARIPiprazole 15 MG TABLET PO SCH (08:50)
[2019-03-05 16:27] VITALS: BP 140/87
[2019-03-06] MEDS: ARIPiprazole 15 MG TABLET PO SCH (09:07)
[2019-03-06] MEDS: VALPROIC ACID 250 MG CAPSULE PO SCH ×2 (09:07→16:00)
[2019-03-06] MEDS: AmLODIPine BESYLATE 5 MG TABLET PO SCH (09:07)
[2019-03-06] MEDS: LORazepam 2 MG TABLET PO PRN (14:23)
[2019-03-06 16:00] VITALS: BP 143/75
[2019-03-07 06:19] VITALS: BP 130/92
[2019-03-07 08:38] VITALS: BP 158/100
[2019-03-07] MEDS: ARIPiprazole 15 MG TABLET PO SCH (08:38)
[2019-03-07] MEDS: AmLODIPine BESYLATE 5 MG TABLET PO SCH (08:38)
[2019-03-07] MEDS: LORazepam 2 MG TABLET PO PRN (08:39)
[2019-03-07] MEDS: VALPROIC ACID 250 MG CAPSULE PO SCH ×2 (08:41→16:44)
[2019-03-07 16:03] VITALS: BP 122/76
[2019-03-07] MEDS ORDERED: AMLO5TAB9 PO (19:21)
[2019-03-08] MEDS ORDERED: AmLODIPine BESYLATE 5 MG TABLET PO SCH ×2 (09:00)
== END 2019-03-07 22:11 | disposition home or self-care (01) | DRG 885 ==
LOC: B3A 20:38 → B2S 03-07 08:38
PROVIDERS: ADMIT Psychiatry & Neurology Psychiatry; ATTEND Psychiatry & Neurology Psychiatry
DX: F20.0 Paranoid schizophrenia (principal); F10.10 Alcohol abuse, uncomplicated; I10 Essential (primary) hypertension; J45.909 Unspecified asthma, uncomplicated; K21.9 Gastro-esophageal reflux disease without esophagitis; F19.10 Other psychoactive substance abuse, uncomplicated; K59.00 Constipation, unspecified; Z59.0 Homelessness; Z71.41 Alcohol abuse counseling and surveillance of alcoholic; Z71.51 Drug abuse counseling and surveillance of drug abuser; Z88.8 Allergy status to other drugs, medicaments and biological substances
CPT/HCPCS: 83036; 84439; 84443; 87081

== ENCOUNTER 2019-04-12 16:57 | Inpatient (IN) | payer MEDICARE, MEDICAID ==
[~2019-04-12] VITALS: Ht 182.9 cm; Wt 84.8 kg
[~2019-04-12 16:57] MED LIST changes: +AMLO5TAB9 PO
[2019-04-12] MEDS ORDERED: ZOLPIDEM TARTRATE 10 MG TABLET PO PRN (17:30)
[2019-04-12] MEDS ORDERED: HALOPERIDOL 5 MG TABLET PO PRN (17:30)
[2019-04-12 17:33] VITALS: BP 168/79
[2019-04-12] MEDS ORDERED: PNEUMOCOCCAL VACCINE POLYVALENT 0.5 ML VIAL [PPSV23] IM ONE (17:45)
[2019-04-12] MEDS ORDERED: PETROLATUM,WHITE 28 GM JELLY TP PRN (18:15)
[2019-04-12] MEDS ORDERED: NICOTINE 14 MG/24 HOUR PATCH TD PRN (18:15)
[2019-04-12] MEDS ORDERED: DOCUSATE SODIUM 100 MG CAPSULE PO PRN (18:15)
[2019-04-12] MEDS ORDERED: GuaiFENesin/D-METHORPHAN [SUGAR-FREE] 200-20MG/10 ML SYRUP UDCUP PO PRN (18:15)
[2019-04-12] MEDS ORDERED: ACETAMINOPHEN 325 MG TABLET PO PRN (18:15)
[2019-04-12] MEDS ORDERED: ONDANSETRON HCL 4 MG TABLET PO PRN (18:15)
[2019-04-12] MEDS ORDERED: MAGNESIUM HYDROXIDE SUSPENSION 30 ML UDCUP PO PRN (18:15)
[2019-04-12] MEDS ORDERED: IBUPROFEN 400 MG TABLET PO PRN (18:15)
[2019-04-12] MEDS ORDERED: ALBUTEROL SULFATE HFA 90 MCG/PUFF 8 GM INHALER IH PRN (18:15)
[2019-04-12] MEDS ORDERED: LOPERAMIDE HCL 2 MG CAPSULE PO PRN (18:15)
[2019-04-12] MEDS ORDERED: CloNIDine HCL 0.1 MG TABLET PO PRN (18:15)
[2019-04-12] MEDS ORDERED: MAG HYDROX/AL HYDROX/SIMETH ES 30 ML SUSPENSION UDCUP PO PRN (18:15)
[2019-04-12 18:58] VITALS: BP 138/74
[2019-04-12] MEDS: AmLODIPine BESYLATE 5 MG TABLET PO SCH (19:47)
[2019-04-13 06:40] VITALS: BP 130/81
[2019-04-13 08:22] LABS: BASOPHILS % (AUTO) 0.9 % (0.0-2.0); EOSINOPHILS % (AUTO) 4.1 % (1.0-6.0); HEMATOCRIT 43.5 % (41-53); HEMOGLOBIN 14.5 g/dL (13.5-17.5); LYMPHOCYTES # (AUTO) 1.7 K/uL (1.0-4.8); LYMPHOCYTES % (AUTO) 37.5 % (22.0-44.0); MEAN CORPUSCULAR HGB CONC 33.3 G/dL (31.0-37.0); MEAN CORPUSCULAR VOLUME 90 fL (80-100); MONOCYTES # (AUTO) 0.4 K/uL (0.1-1.0); MONOCYTES % (AUTO) 9.4 % (2.0-9.0); NEUTROPHILS # (AUTO) 2.2 K/uL (1.8-7.7); NEUTROPHILS % (AUTO) 48.1 % (40.0-70.0); PLATELET COUNT (AUTO) 246 K/uL (150-450); RED BLOOD CELL COUNT(AUTO) 4.83 MIL/uL (4.50-5.90); RED CELL DISTRIBUTION WIDTH 13.9 % (11.5-14.5)
[2019-04-13 08:39] LABS: HEMOGLOBIN A1C 5.3 % (4.5-6.2)
[2019-04-13 08:55] LABS: ALANINE AMINOTRANSFERASE 16 U/L (12-78); ALBUMIN 3.5 g/dL (3.4-5.0); ALKALINE PHOSPHATASE 66 U/L (46-116); ANION GAP 7 mmol/L (8-16); ASPARTATE AMINOTRANSFERASE 16 U/L (15-37); BILIRUBIN,TOTAL 0.9 mg/dL (0.1-1.0); CALCIUM, TOTAL 9.1 mg/dL (8.8-10.5); CARBON DIOXIDE 28 mmol/L (22-29); CHLORIDE 104 mmol/L (98-107); CHOL/HDL RATIO 2.4 (4.2-7.3); CHOLESTEROL 177 mg/dL (131-200); CREATININE 0.77 mg/dL (0.60-1.30); FREE T4 (FREE THYROXINE) 0.99 ng/dL (0.76-1.46); GLOMERULAR FILTR. RATE CALC > 60 mL/min (>60); GLUCOSE,RANDOM 82 mg/dL (70-110); HDL CHOLESTEROL 74 mg/dL (40-60); LDL CHOL (CALC.) 96 mg/dL (0-130); POTASSIUM 4.3 mmol/L (3.5-5.1); SODIUM SERUM 139 mmol/L (136-145); THYROID STIMULATING HORMONE 0.95 uIU/mL (0.36-3.74); TOTAL PROTEIN, SERUM 6.8 g/dL (6.4-8.2); TRIGLYCERIDES 34 mg/dL (15-150); UREA NITROGEN, BLOOD 16 mg/dL (7-18)
[2019-04-13 09:20] VITALS: BP 138/72
[2019-04-13] MEDS: AmLODIPine BESYLATE 5 MG TABLET PO SCH (09:21)
[2019-04-13] MEDS: LORazepam 2 MG TABLET PO PRN (11:32)
[2019-04-13] MEDS: ARIPiprazole 15 MG TABLET PO SCH (12:27)
[2019-04-13] MEDS: VALPROIC ACID 250 MG CAPSULE PO SCH (16:56)
[2019-04-14 05:17] VITALS: BP 132/78
[2019-04-14 08:50] VITALS: BP 132/72
[2019-04-14] MEDS: ARIPiprazole 15 MG TABLET PO SCH (08:52)
[2019-04-14] MEDS: VALPROIC ACID 250 MG CAPSULE PO SCH ×2 (08:52→16:22)
[2019-04-14] MEDS: AmLODIPine BESYLATE 5 MG TABLET PO SCH (08:52)
[2019-04-14] MEDS: LORazepam 2 MG TABLET PO PRN (09:55)
[2019-04-14 16:09] VITALS: BP 126/75
[2019-04-15 00:23] VITALS: BP 128/71
[2019-04-15 08:40] VITALS: BP 133/78
[2019-04-15] MEDS: VALPROIC ACID 250 MG CAPSULE PO SCH ×2 (08:41→16:34)
[2019-04-15] MEDS: ARIPiprazole 15 MG TABLET PO SCH (08:41)
[2019-04-15] MEDS: AmLODIPine BESYLATE 5 MG TABLET PO SCH (08:41)
[2019-04-15] MEDS: LORazepam 2 MG TABLET PO PRN (09:05)
[2019-04-15 16:56] VITALS: BP 130/79
[2019-04-16 08:15] VITALS: BP 140/75
[2019-04-16] MEDS: VALPROIC ACID 250 MG CAPSULE PO SCH ×2 (08:34→16:11)
[2019-04-16] MEDS: AmLODIPine BESYLATE 5 MG TABLET PO SCH (08:34)
[2019-04-16] MEDS: ARIPiprazole 15 MG TABLET PO SCH (08:34)
[2019-04-16] MEDS: LORazepam 2 MG TABLET PO PRN ×2 (09:26→16:28)
[2019-04-16 16:20] VITALS: BP 130/74
[2019-04-17 04:26] VITALS: BP 135/78
[2019-04-17] MEDS: VALPROIC ACID 250 MG CAPSULE PO SCH (08:13)
[2019-04-17] MEDS: AmLODIPine BESYLATE 5 MG TABLET PO SCH (08:13)
[2019-04-17] MEDS: ARIPiprazole 15 MG TABLET PO SCH (08:13)
[2019-04-17] MEDS ORDERED: AMLO10TA7 PO (08:14)
[2019-04-17 08:15] VITALS: BP 129/63
== END 2019-04-17 10:00 | disposition home or self-care (01) | DRG 885 ==
LOC: B2X 17:22
DX: F25.1 Schizoaffective disorder, depressive type (principal); R45.851 Suicidal ideations; E11.9 Type 2 diabetes mellitus without complications; E78.5 Hyperlipidemia, unspecified; F10.20 Alcohol dependence, uncomplicated; F12.10 Cannabis abuse, uncomplicated; F15.10 Other stimulant abuse, uncomplicated; I10 Essential (primary) hypertension; J44.9 Chronic obstructive pulmonary disease, unspecified; K21.9 Gastro-esophageal reflux disease without esophagitis; Z59.0 Homelessness; Z79.899 Other long term (current) drug therapy; Z91.5 Personal history of self-harm; Z88.8 Allergy status to other drugs, medicaments and biological substances; Z71.51 Drug abuse counseling and surveillance of drug abuser; Z71.41 Alcohol abuse counseling and surveillance of alcoholic
CPT/HCPCS: 83036; 84439; 84443; 90732

== ENCOUNTER 2019-07-10 19:46 | Inpatient (IN) | payer MEDICARE, MEDICAID ==
[~2019-07-10 19:46] MED LIST changes: +AMLO10TA7 PO; -AMLO5TAB9 PO; -VALP250 PO; +VALP250C48 PO
[2019-07-10] MEDS ORDERED: OLANZapine 5 MG RAPDIS TABLET PO PRN (20:15)
[2019-07-10] MEDS ORDERED: ZOLPIDEM TARTRATE 10 MG TABLET PO PRN (20:15)
[2019-07-10 20:28] VITALS: BP 162/89
[2019-07-10] MEDS ORDERED: PNEUMOCOCCAL VACCINE POLYVALENT 0.5 ML VIAL [PPSV23] IM ONE (20:30)
[2019-07-10] MEDS ORDERED: INFLUENZA VIRUS VACCINE QVS 2019-20 (3YR+)/PF 60 MCG/0.5 ML SYRINGE IM ONE (20:30)
[2019-07-10] MEDS: VALPROIC ACID 250 MG CAPSULE PO SCH (20:30)
[2019-07-10 22:00] VITALS: BP 133/74
[2019-07-11 07:46] LABS: BASOPHILS % (AUTO) 0.9 % (0.0-2.0); EOSINOPHILS % (AUTO) 5.2 % (1.0-6.0); HEMATOCRIT 41.3 % (41-53); HEMOGLOBIN 14.1 g/dL (13.5-17.5); LYMPHOCYTES # (AUTO) 1.5 K/uL (1.0-4.8); LYMPHOCYTES % (AUTO) 30.9 % (22.0-44.0); MEAN CORPUSCULAR HEMOGLOBIN 30.1 pg (26.0-34.0); MEAN CORPUSCULAR HGB CONC 34.1 G/dL (31.0-37.0); MEAN CORPUSCULAR VOLUME 88 fL (80-100); MONOCYTES # (AUTO) 0.4 K/uL (0.1-1.0); MONOCYTES % (AUTO) 8.9 % (2.0-9.0); NEUTROPHILS # (AUTO) 2.7 K/uL (1.8-7.7); NEUTROPHILS % (AUTO) 54.1 % (40.0-70.0); PLATELET COUNT (AUTO) 268 K/uL (150-450); RED BLOOD CELL COUNT(AUTO) 4.68 MIL/uL (4.50-5.90)
[2019-07-11 08:23] LABS: HEMOGLOBIN A1C 5.5 % (4.5-6.2)
[2019-07-11 08:29] LABS: ALANINE AMINOTRANSFERASE 19 U/L (12-78); ALBUMIN 3.2 g/dL (3.4-5.0); ALKALINE PHOSPHATASE 68 U/L (46-116); ANION GAP 5 mmol/L (8-16); ASPARTATE AMINOTRANSFERASE 13 U/L (15-37); BILIRUBIN,TOTAL 0.5 mg/dL (0.1-1.0); CALCIUM, TOTAL 8.6 mg/dL (8.8-10.5); CARBON DIOXIDE 30 mmol/L (22-29); CHLORIDE 106 mmol/L (98-107); CHOL/HDL RATIO 2.3 (4.2-7.3); CHOLESTEROL 161 mg/dL (131-200); CREATININE 0.91 mg/dL (0.60-1.30); FREE T4 (FREE THYROXINE) 0.94 ng/dL (0.76-1.46); GLOMERULAR FILTR. RATE CALC > 60 mL/min (>60); GLUCOSE,RANDOM 93 mg/dL (70-110); HDL CHOLESTEROL 70 mg/dL (40-60); LDL CHOL (CALC.) 82 mg/dL (0-130); POTASSIUM 4.7 mmol/L (3.5-5.1); SODIUM SERUM 141 mmol/L (136-145); THYROID STIMULATING HORMONE 0.68 uIU/mL (0.36-3.74); TRIGLYCERIDES 45 mg/dL (15-150)
[2019-07-11 08:42] LABS: TOTAL PROTEIN, SERUM 6.6 g/dL (6.4-8.2); UREA NITROGEN, BLOOD 17 mg/dL (7-18)
[2019-07-11] MEDS ORDERED: ARIPiprazole 15 MG TABLET PO SCH (09:00)
[2019-07-11] MEDS: VALPROIC ACID 250 MG CAPSULE PO SCH (09:13)
[2019-07-11] MEDS: LORazepam 2 MG TABLET PO PRN (09:52)
[2019-07-11] MEDS ORDERED: MAGNESIUM HYDROXIDE SUSPENSION 30 ML UDCUP PO PRN (13:45)
[2019-07-11] MEDS ORDERED: TUBERCULIN, PURIFIED PROTEIN DERIVATIVE 5 TU/0.1 ML SYRINGE ID ONE (13:45)
[2019-07-11] MEDS ORDERED: MAG HYDROX/AL HYDROX/SIMETH ES 30 ML SUSPENSION UDCUP PO PRN (13:45)
[2019-07-11] MEDS ORDERED: ACETAMINOPHEN 325 MG TABLET PO PRN (13:45)
[2019-07-11] MEDS ORDERED: PROMETHAZINE HCL 25 MG TABLET PO PRN (13:45)
[2019-07-11] MEDS ORDERED: HydrOXYzine PAMOATE 50 MG CAPSULE PO PRN (13:45)
[2019-07-11] MEDS ORDERED: GuaiFENesin/D-METHORPHAN [SUGAR-FREE] 200-20MG/10 ML SYRUP UDCUP PO PRN (13:45)
[2019-07-11] MEDS ORDERED: LOPERAMIDE HCL 2 MG CAPSULE PO PRN (13:45)
[2019-07-11] MEDS ORDERED: PALIPERIDONE 1.5 MG ER TABLET PO PRN (16:00)
[2019-07-11] MEDS ORDERED: PALIPERIDONE PALMITATE 234 MG/1.5 ML SYRINGE IM ONE (16:00)
[2019-07-11] MEDS: THIAMINE HCL 100 MG TABLET PO SCH (17:06)
[2019-07-11] MEDS: DIVALPROEX SODIUM 500 MG ER TABLET PO SCH (20:40)
[2019-07-11] MEDS: PALIPERIDONE 3 MG ER TABLET PO SCH (20:41)
[2019-07-12 00:45] VITALS: BP 139/80
[2019-07-12 08:15] VITALS: BP 138/73
[2019-07-12] MEDS: MULTIVITAMINS WITH MINERALS, THERAPEUTIC TABLET PO SCH (09:43)
[2019-07-12] MEDS: THIAMINE HCL 100 MG TABLET PO SCH ×2 (09:43→17:00)
[2019-07-12] MEDS: FOLIC ACID 1 MG TABLET PO SCH (09:43)
[2019-07-12] MEDS: NALTREXONE HCL 50 MG TABLET PO SCH (09:43)
[2019-07-12] MEDS ORDERED: PALIPERIDONE PALMITATE 234 MG/1.5 ML SYRINGE IM ONE (15:30)
[2019-07-12 16:06] VITALS: BP 141/85
[2019-07-12] MEDS: LORazepam 2 MG TABLET PO PRN (17:01)
[2019-07-12] MEDS: PALIPERIDONE 3 MG ER TABLET PO SCH (21:10)
[2019-07-12] MEDS: DIVALPROEX SODIUM 500 MG ER TABLET PO SCH (21:10)
[2019-07-13 00:06] VITALS: BP 132/62
[2019-07-13] MEDS: FOLIC ACID 1 MG TABLET PO SCH (08:37)
[2019-07-13] MEDS: NALTREXONE HCL 50 MG TABLET PO SCH (08:37)
[2019-07-13] MEDS: THIAMINE HCL 100 MG TABLET PO SCH ×2 (08:37→16:11)
[2019-07-13] MEDS: MULTIVITAMINS WITH MINERALS, THERAPEUTIC TABLET PO SCH (08:37)
[2019-07-13] MEDS ORDERED: DIVA500T52 PO ×2 (14:18→14:20)
[2019-07-13] MEDS ORDERED: NALT50TA PO (14:18)
[2019-07-13] MEDS ORDERED: PALI156D IM (14:18)
[2019-07-13 16:10] VITALS: BP 125/72
[2019-07-13] MEDS: LORazepam 2 MG TABLET PO PRN (16:11)
[2019-07-13] MEDS ORDERED: DIVALPROEX SODIUM 500 MG ER TABLET PO SCH (21:00)
[2019-07-14 07:08] VITALS: BP 130/78
[2019-07-14 08:10] VITALS: BP 127/77
[2019-07-14] MEDS: NALTREXONE HCL 50 MG TABLET PO SCH (09:20)
[2019-07-14] MEDS: MULTIVITAMINS WITH MINERALS, THERAPEUTIC TABLET PO SCH (09:20)
[2019-07-14] MEDS: THIAMINE HCL 100 MG TABLET PO SCH (09:20)
[2019-07-14] MEDS: FOLIC ACID 1 MG TABLET PO SCH (09:21)
[2019-07-15] MEDS ORDERED: PALIPERIDONE PALMITATE 156 MG/ML SYRINGE IM ONE (09:00)
== END 2019-07-14 11:30 | disposition home or self-care (01) | DRG 885 ==
LOC: B2X 20:10
PROVIDERS: ADMIT Psychiatry & Neurology Psychiatry; ATTEND Psychiatry & Neurology Psychiatry
DX: F25.9 Schizoaffective disorder, unspecified (principal); E78.5 Hyperlipidemia, unspecified; Z88.8 Allergy status to other drugs, medicaments and biological substances; F17.210 Nicotine dependence, cigarettes, uncomplicated; E11.9 Type 2 diabetes mellitus without complications; K21.9 Gastro-esophageal reflux disease without esophagitis; F12.10 Cannabis abuse, uncomplicated; I10 Essential (primary) hypertension; J44.9 Chronic obstructive pulmonary disease, unspecified; Z59.0 Homelessness; Z91.19 Patient's noncompliance with other medical treatment and regimen
CPT/HCPCS: 83036; 84439; 84443

== ENCOUNTER 2019-09-04 16:17 | Inpatient (IN) | payer MEDICARE, MEDICAID ==
[~2019-09-04] VITALS: Ht 182.9 cm; Wt 188.0 kg
[~2019-09-04 16:17] MED LIST changes: -AMLO10TA7 PO; -ARIP15TA2 PO; +DIVA500T52 PO; +NALT50TA PO; +PALI156D IM; -VALP250C48 PO
[2019-09-04] MEDS ORDERED: NALT50TA6 PO (17:08)
[2019-09-04] MEDS ORDERED: DIVA500T52 PO (17:08)
[2019-09-04] MEDS ORDERED: PROMETHAZINE HCL 25 MG TABLET PO PRN (17:30)
[2019-09-04] MEDS ORDERED: PALIPERIDONE PALMITATE 234 MG/1.5 ML SYRINGE IM ONE (17:30)
[2019-09-04] MEDS ORDERED: GuaiFENesin/D-METHORPHAN [SUGAR-FREE] 200-20MG/10 ML SYRUP UDCUP PO PRN (17:30)
[2019-09-04] MEDS ORDERED: MAG HYDROX/AL HYDROX/SIMETH ES 30 ML SUSPENSION UDCUP PO PRN (17:30)
[2019-09-04] MEDS ORDERED: LOPERAMIDE HCL 2 MG CAPSULE PO PRN (17:30)
[2019-09-04] MEDS ORDERED: MAGNESIUM HYDROXIDE SUSPENSION 30 ML UDCUP PO PRN (17:30)
[2019-09-04] MEDS ORDERED: ZOLPIDEM TARTRATE 10 MG TABLET PO PRN (17:30)
[2019-09-04] MEDS ORDERED: HydrOXYzine PAMOATE 50 MG CAPSULE PO PRN (17:30)
[2019-09-04] MEDS ORDERED: ACETAMINOPHEN 325 MG TABLET PO PRN (17:30)
[2019-09-04] MEDS ORDERED: PALI117D IM (17:40)
[2019-09-04 17:58] VITALS: BP 161/91
[2019-09-04] MEDS: CloNIDine HCL 0.1 MG TABLET PO SCH (19:00)
[2019-09-04] MEDS ORDERED: INFLUENZA VIRUS VACCINE QVS 2019-20 (3YR+)/PF 60 MCG/0.5 ML SYRINGE IM ONE (20:00)
[2019-09-04] MEDS ORDERED: PNEUMOCOCCAL VACCINE POLYVALENT 0.5 ML VIAL [PPSV23] IM ONE (20:00)
[2019-09-04] MEDS ORDERED: NICOTINE 14 MG/24 HOUR PATCH TD PRN ×2 (20:15→20:30)
[2019-09-04] MEDS: THIAMINE HCL 100 MG TABLET PO SCH (21:33)
[2019-09-04] MEDS: DIVALPROEX SODIUM 500 MG ER TABLET PO SCH (21:34)
[2019-09-04 23:02] VITALS: BP 162/89
[2019-09-05 08:30] LABS: BASOPHILS % (AUTO) 0.9 % (0.0-2.0); EOSINOPHILS % (AUTO) 3.3 % (1.0-6.0); HEMATOCRIT 41.8 % (41-53); HEMOGLOBIN 14.3 g/dL (13.5-17.5); LYMPHOCYTES # (AUTO) 1.5 K/uL (1.0-4.8); LYMPHOCYTES % (AUTO) 36.3 % (22.0-44.0); MEAN CORPUSCULAR HEMOGLOBIN 30.2 pg (26.0-34.0); MEAN CORPUSCULAR HGB CONC 34.3 G/dL (31.0-37.0); MEAN CORPUSCULAR VOLUME 88 fL (80-100); MONOCYTES # (AUTO) 0.4 K/uL (0.1-1.0); MONOCYTES % (AUTO) 8.6 % (2.0-9.0); NEUTROPHILS # (AUTO) 2.1 K/uL (1.8-7.7); NEUTROPHILS % (AUTO) 50.9 % (40.0-70.0); PLATELET COUNT (AUTO) 237 K/uL (150-450); RED BLOOD CELL COUNT(AUTO) 4.74 MIL/uL (4.50-5.90); RED CELL DISTRIBUTION WIDTH 14.1 % (11.5-14.5)
[2019-09-05 08:34] LABS: HEMOGLOBIN A1C 5.6 % (4.5-6.2)
[2019-09-05] MEDS: THIAMINE HCL 100 MG TABLET PO SCH ×2 (08:54→16:44)
[2019-09-05] MEDS: FOLIC ACID 1 MG TABLET PO SCH (08:54)
[2019-09-05] MEDS: CloNIDine HCL 0.1 MG TABLET PO SCH ×2 (08:55→16:44)
[2019-09-05] MEDS: MULTIVITAMINS WITH MINERALS, THERAPEUTIC TABLET PO SCH (08:55)
[2019-09-05] MEDS: NALTREXONE HCL 50 MG TABLET PO SCH (08:55)
[2019-09-05 09:00] LABS: ALANINE AMINOTRANSFERASE 21 U/L (12-78); ALBUMIN 3.2 g/dL (3.4-5.0); ALKALINE PHOSPHATASE 70 U/L (46-116); ANION GAP 6 mmol/L (8-16); ASPARTATE AMINOTRANSFERASE 14 U/L (15-37); BILIRUBIN,TOTAL 0.7 mg/dL (0.1-1.0); CALCIUM, TOTAL 8.4 mg/dL (8.8-10.5); CARBON DIOXIDE 28 mmol/L (22-29); CHLORIDE 106 mmol/L (98-107); CHOL/HDL RATIO 2.1 (4.2-7.3); CHOLESTEROL 163 mg/dL (131-200); CREATININE 0.82 mg/dL (0.60-1.30); FREE T4 (FREE THYROXINE) 1.16 ng/dL (0.76-1.46); GLOMERULAR FILTR. RATE CALC > 60 mL/min (>60); GLUCOSE,RANDOM 90 mg/dL (70-110); HDL CHOLESTEROL 77 mg/dL (40-60); LDL CHOL (CALC.) 80 mg/dL (0-130); SODIUM SERUM 140 mmol/L (136-145); THYROID STIMULATING HORMONE 0.73 uIU/mL (0.36-3.74); TOTAL PROTEIN, SERUM 6.9 g/dL (6.4-8.2); TRIGLYCERIDES 30 mg/dL (15-150); UREA NITROGEN, BLOOD 13 mg/dL (7-18)
[2019-09-05 12:42] VITALS: BP 157/117
[2019-09-05] MEDS: LORazepam 2 MG TABLET PO PRN (13:23)
[2019-09-05] MEDS: DIVALPROEX SODIUM 500 MG ER TABLET PO SCH (21:02)
[2019-09-06] MEDS: MULTIVITAMINS WITH MINERALS, THERAPEUTIC TABLET PO SCH (08:26)
[2019-09-06] MEDS: NALTREXONE HCL 50 MG TABLET PO SCH (08:26)
[2019-09-06] MEDS: THIAMINE HCL 100 MG TABLET PO SCH ×2 (08:27→16:37)
[2019-09-06] MEDS: CloNIDine HCL 0.1 MG TABLET PO SCH ×2 (08:27→16:37)
[2019-09-06] MEDS: FOLIC ACID 1 MG TABLET PO SCH (08:27)
[2019-09-06 16:05] VITALS: BP 117/62
[2019-09-06] MEDS: LORazepam 2 MG TABLET PO PRN (16:37)
[2019-09-06] MEDS: DIVALPROEX SODIUM 500 MG ER TABLET PO SCH (20:24)
[2019-09-07 06:14] VITALS: BP 121/62
[2019-09-07 08:00] VITALS: BP 153/75
[2019-09-07] MEDS: THIAMINE HCL 100 MG TABLET PO SCH ×2 (08:17→16:20)
[2019-09-07] MEDS: MULTIVITAMINS WITH MINERALS, THERAPEUTIC TABLET PO SCH (08:17)
[2019-09-07] MEDS: NALTREXONE HCL 50 MG TABLET PO SCH (08:17)
[2019-09-07] MEDS: CloNIDine HCL 0.1 MG TABLET PO SCH ×2 (08:18→16:20)
[2019-09-07] MEDS: FOLIC ACID 1 MG TABLET PO SCH (08:18)
[2019-09-07] MEDS: LORazepam 2 MG TABLET PO PRN (14:13)
[2019-09-07 16:31] VITALS: BP 137/72
[2019-09-07] MEDS: DIVALPROEX SODIUM 500 MG ER TABLET PO SCH (20:33)
[2019-09-08] MEDS: FOLIC ACID 1 MG TABLET PO SCH (08:05)
[2019-09-08] MEDS: MULTIVITAMINS WITH MINERALS, THERAPEUTIC TABLET PO SCH (08:05)
[2019-09-08] MEDS: NALTREXONE HCL 50 MG TABLET PO SCH (08:05)
[2019-09-08] MEDS: THIAMINE HCL 100 MG TABLET PO SCH (08:05)
[2019-09-08] MEDS: CloNIDine HCL 0.1 MG TABLET PO SCH (08:07)
[2019-09-08 08:22] VITALS: BP 129/80
[2019-09-08] MEDS ORDERED: PALIPERIDONE PALMITATE 156 MG/ML SYRINGE IM ONE (09:00)
[2019-09-08] MEDS ORDERED: CLON0.1T PO (09:43)
[2019-09-08] MEDS ORDERED: CLON0.2T PO (09:45)
== END 2019-09-08 15:12 | disposition home or self-care (01) | DRG 885 ==
LOC: B3A 19:45
PROVIDERS: ADMIT Psychiatry & Neurology Psychiatry; ATTEND Psychiatry & Neurology Psychiatry
DX: F25.0 Schizoaffective disorder, bipolar type (principal); F15.90 Other stimulant use, unspecified, uncomplicated; E78.5 Hyperlipidemia, unspecified; F17.210 Nicotine dependence, cigarettes, uncomplicated; I10 Essential (primary) hypertension; R45.87 Impulsiveness; K21.9 Gastro-esophageal reflux disease without esophagitis; Z59.0 Homelessness; Z65.3 Problems related to other legal circumstances; Z91.19 Patient's noncompliance with other medical treatment and regimen; Z28.21 Immunization not carried out because of patient refusal
CPT/HCPCS: 83036; 84439; 84443; 86592

== ENCOUNTER 2020-02-11 18:52 | Inpatient (IN) | payer MEDICARE, MEDICAID ==
[~2020-02-11] VITALS: Ht 182.9 cm; Wt 85.5 kg
[~2020-02-11 18:52] MED LIST changes: +CLON0.1T PO; +DIVA-80 PO; -DIVA500T52 PO; -NALT50TA PO; +NALT50TA6 PO; -PALI156D IM
[2020-02-11] MEDS ORDERED: ZOLPIDEM TARTRATE 10 MG TABLET PO PRN (19:15)
[2020-02-11] MEDS ORDERED: ChlorproMAZINE HCL 100 MG TABLET PO PRN (19:15)
[2020-02-11 19:45] VITALS: BP 125/85
[2020-02-11] MEDS ORDERED: PNEUMOCOCCAL VACCINE POLYVALENT 0.5 ML VIAL [PPSV23] IM ONE (20:45)
[2020-02-11 20:52] VITALS: BP 132/78
[2020-02-11] MEDS ORDERED: DIVALPROEX SODIUM 500 MG DR TABLET PO SCH (21:00)
[2020-02-12 05:41] VITALS: BP 128/78
[2020-02-12 07:53] LABS: HEMOGLOBIN A1C 5.4 % (3.8-5.6)
[2020-02-12 08:07] LABS: ALANINE AMINOTRANSFERASE 15 U/L (12-78); ALBUMIN 3.1 g/dL (3.4-5.0); ALKALINE PHOSPHATASE 79 U/L (46-116); ANION GAP 7 mmol/L (8-16); ASPARTATE AMINOTRANSFERASE 11 U/L (15-37); BILIRUBIN,TOTAL 0.3 mg/dL (0.1-1.0); CALCIUM, TOTAL 8.8 mg/dL (8.8-10.5); CARBON DIOXIDE 30 mmol/L (22-29); CHLORIDE 106 mmol/L (98-107); CHOL/HDL RATIO 2.3 (4.2-7.3); CHOLESTEROL 153 mg/dL (131-200); FREE T4 (FREE THYROXINE) 0.97 ng/dL (0.76-1.46); GLOMERULAR FILTR. RATE CALC > 60 mL/min (>60); GLUCOSE,RANDOM 88 mg/dL (70-110); HDL CHOLESTEROL 66 mg/dL (40-60); LDL CHOL (CALC.) 80 mg/dL (0-130); POTASSIUM 4.5 mmol/L (3.5-5.1); SODIUM SERUM 143 mmol/L (136-145); THYROID STIMULATING HORMONE 1.16 uIU/mL (0.36-3.74); TOTAL PROTEIN, SERUM 6.8 g/dL (6.4-8.2); TRIGLYCERIDES 35 mg/dL (15-150); UREA NITROGEN, BLOOD 12 mg/dL (7-18)
[2020-02-12 08:39] LABS: EOSINOPHILS % (AUTO) 4.1 % (1.0-6.0); HEMATOCRIT 39.7 % (41-53); HEMOGLOBIN 13.6 g/dL (13.5-17.5); LYMPHOCYTES # (AUTO) 1.8 K/uL (1.0-4.8); LYMPHOCYTES % (AUTO) 36.7 % (22.0-44.0); MEAN CORPUSCULAR HEMOGLOBIN 29.6 pg (26.0-34.0); MEAN CORPUSCULAR HGB CONC 34.1 G/dL (31.0-37.0); MEAN CORPUSCULAR VOLUME 87 fL (80-100); MONOCYTES # (AUTO) 0.3 K/uL (0.1-1.0); NEUTROPHILS # (AUTO) 2.4 K/uL (1.8-7.7); NEUTROPHILS % (AUTO) 51.2 % (40.0-70.0); PLATELET COUNT (AUTO) 258 K/uL (150-450); RED BLOOD CELL COUNT(AUTO) 4.58 MIL/uL (4.50-5.90); RED CELL DISTRIBUTION WIDTH 14.5 % (11.5-14.5)
[2020-02-12] MEDS ORDERED: OLANZapine 5 MG TABLET PO SCH (09:00)
[2020-02-12] MEDS ORDERED: PROMETHAZINE HCL 25 MG TABLET PO PRN (10:00)
[2020-02-12] MEDS ORDERED: TUBERCULIN, PURIFIED PROTEIN DERIVATIVE 5 TU/0.1 ML SYRINGE ID ONE (10:00)
[2020-02-12] MEDS ORDERED: LOPERAMIDE HCL 2 MG CAPSULE PO PRN (10:00)
[2020-02-12] MEDS ORDERED: GuaiFENesin/D-METHORPHAN [SUGAR-FREE] 200-20MG/10 ML SYRUP UDCUP PO PRN (10:00)
[2020-02-12] MEDS ORDERED: ACETAMINOPHEN 325 MG TABLET PO PRN (10:00)
[2020-02-12] MEDS ORDERED: MAGNESIUM HYDROXIDE SUSPENSION 30 ML UDCUP PO PRN (10:00)
[2020-02-12] MEDS ORDERED: HydrOXYzine PAMOATE 50 MG CAPSULE PO PRN (10:00)
[2020-02-12] MEDS ORDERED: OLANZapine 5 MG RAPDIS TABLET PO PRN (10:00)
[2020-02-12] MEDS ORDERED: MAG HYDROX/AL HYDROX/SIMETH ES 30 ML SUSPENSION UDCUP PO PRN (10:00)
[2020-02-12 10:08] VITALS: BP 140/69
[2020-02-12 16:05] VITALS: BP 128/72
[2020-02-12] MEDS ORDERED: PALIPERIDONE PALMITATE 234 MG/1.5 ML SYRINGE IM ONE (16:30)
[2020-02-12] MEDS: THIAMINE 100 MG TABLET PO SCH (16:41)
[2020-02-12] MEDS: DIVALPROEX SODIUM 500 MG DR TABLET PO SCH (20:38)
[2020-02-12] MEDS ORDERED: PALIPERIDONE 3 MG ER TABLET PO SCH (21:00)
[2020-02-13 06:31] VITALS: BP 124/69
[2020-02-13] MEDS: FOLIC ACID 1 MG TABLET PO SCH (08:17)
[2020-02-13] MEDS: THIAMINE 100 MG TABLET PO SCH ×2 (08:17→16:11)
[2020-02-13] MEDS: NALTREXONE HCL 50 MG TABLET PO SCH (08:17)
[2020-02-13] MEDS: MULTIVITAMINS WITH MINERALS, THERAPEUTIC TABLET PO SCH (08:17)
[2020-02-13 08:24] VITALS: BP 162/95
[2020-02-13] MEDS: HydrOXYzine PAMOATE 50 MG CAPSULE PO PRN ×2 (12:58→16:59)
[2020-02-13] MEDS: DIVALPROEX SODIUM 500 MG DR TABLET PO SCH (20:18)
[2020-02-14 04:30] VITALS: BP 141/76
[2020-02-14 08:36] VITALS: BP 137/80
[2020-02-14] MEDS: MULTIVITAMINS WITH MINERALS, THERAPEUTIC TABLET PO SCH (09:26)
[2020-02-14] MEDS: THIAMINE 100 MG TABLET PO SCH ×2 (09:26→16:38)
[2020-02-14] MEDS: FOLIC ACID 1 MG TABLET PO SCH (09:26)
[2020-02-14] MEDS: NALTREXONE HCL 50 MG TABLET PO SCH (09:27)
[2020-02-14] MEDS: PALIPERIDONE 1.5 MG ER TABLET PO PRN (10:52)
[2020-02-14] MEDS: HydrOXYzine PAMOATE 50 MG CAPSULE PO PRN ×2 (10:53→16:39)
[2020-02-14] MEDS: DIVALPROEX SODIUM 500 MG DR TABLET PO SCH (20:16)
[2020-02-15 05:20] VITALS: BP 132/68
[2020-02-15 08:19] VITALS: BP 158/90
[2020-02-15] MEDS: FOLIC ACID 1 MG TABLET PO SCH (08:33)
[2020-02-15] MEDS: THIAMINE 100 MG TABLET PO SCH ×2 (08:33→16:22)
[2020-02-15] MEDS: NALTREXONE HCL 50 MG TABLET PO SCH (08:33)
[2020-02-15] MEDS: MULTIVITAMINS WITH MINERALS, THERAPEUTIC TABLET PO SCH (08:34)
[2020-02-15 09:00] VITALS: BP 139/74
[2020-02-15 09:13] LABS: AMPHET/METH SCREEN,URINE NEGATIVE (NEGATIVE); APPEARANCE,URINE CLEAR (CLEAR); BARBITURATE SCREEN, URINE NEGATIVE (NEGATIVE); BENZODIAZEPINES SCREEN,URINE NEGATIVE (NEGATIVE); BILIRUBIN,URINE NEGATIVE (NEGATIVE); CANNABINOID SCREEN,URINE NEGATIVE (NEGATIVE); COCAINE SCREEN,URINE NEGATIVE (NEGATIVE); GLUCOSE, URINE (UA) NEGATIVE (NEGATIVE); KETONES,URINE NEGATIVE (NEGATIVE); LEUKOCYTE ESTERASE ,URINE NEGATIVE (NEGATIVE); METHADONE SCREEN, URINE NEGATIVE (NEGATIVE); NITRATE,URINE NEGATIVE (NEGATIVE); OCCULT BLOOD,URINE NEGATIVE (NEGATIVE); OPIATE SCREEN,URINE NEGATIVE (NEGATIVE); PROTEIN,URINE NEGATIVE (NEGATIVE); UROBILINOGEN,URINE 0.2 mg/dL (<=1.0)
[2020-02-15 09:18] LABS: PHENCYCLIDINE SCREEN,URINE NEGATIVE (NEGATIVE)
[2020-02-15] MEDS ORDERED: DIVA-112 PO (15:32)
[2020-02-15] MEDS ORDERED: PALI117D IM (15:32)
[2020-02-15] MEDS ORDERED: NALT50TA PO (15:32)
[2020-02-15 16:00] VITALS: BP 145/82
[2020-02-15] MEDS: PALIPERIDONE 1.5 MG ER TABLET PO PRN (16:21)
[2020-02-15] MEDS: HydrOXYzine PAMOATE 50 MG CAPSULE PO PRN (16:21)
[2020-02-15] MEDS: DIVALPROEX SODIUM 500 MG DR TABLET PO SCH (20:01)
[2020-02-16 05:41] VITALS: BP 128/72
[2020-02-16 08:26] VITALS: BP 133/79
[2020-02-16] MEDS: FOLIC ACID 1 MG TABLET PO SCH (09:07)
[2020-02-16] MEDS: THIAMINE 100 MG TABLET PO SCH (09:07)
[2020-02-16] MEDS: NALTREXONE HCL 50 MG TABLET PO SCH (09:07)
[2020-02-16] MEDS: MULTIVITAMINS WITH MINERALS, THERAPEUTIC TABLET PO SCH (09:07)
[2020-02-17] MEDS ORDERED: PALIPERIDONE PALMITATE 156 MG/ML SYRINGE IM ONE (09:00)
== END 2020-02-16 10:14 | disposition home or self-care (01) | DRG 885 ==
LOC: B2S 19:12 → B3A 02-12 13:40
PROVIDERS: ADMIT Psychiatry & Neurology Psychiatry; ATTEND Psychiatry & Neurology Psychiatry
DX: F25.0 Schizoaffective disorder, bipolar type (principal); R45.851 Suicidal ideations; I10 Essential (primary) hypertension; E78.5 Hyperlipidemia, unspecified; K21.9 Gastro-esophageal reflux disease without esophagitis; J44.9 Chronic obstructive pulmonary disease, unspecified; Z91.19 Patient's noncompliance with other medical treatment and regimen; Z88.8 Allergy status to other drugs, medicaments and biological substances; Z59.0 Homelessness; Z28.21 Immunization not carried out because of patient refusal
CPT/HCPCS: 80307; 83036; 84439; 84443

== ENCOUNTER 2020-11-16 15:57 | Emergency (ER) | payer MEDICARE, MEDICAID ==
[~2020-11-16] VITALS: Ht 170.2 cm; Wt 63.5 kg
[~2020-11-16 15:57] MED LIST changes: -CLON0.1T PO; +DIVA-112 PO; -DIVA-80 PO; +NALT50TA PO; -NALT50TA6 PO; +PALI117D IM
[2020-11-16 16:06] VITALS: BP 164/97
== END 2020-11-16 16:30 | disposition left against medical advice (07) ==
LOC: EMS 15:57
DX: F11.10 Opioid abuse, uncomplicated (principal); F15.10 Other stimulant abuse, uncomplicated; F20.9 Schizophrenia, unspecified; E78.00 Pure hypercholesterolemia, unspecified; F17.210 Nicotine dependence, cigarettes, uncomplicated; Z59.0 Homelessness; Z88.8 Allergy status to other drugs, medicaments and biological substances
CPT/HCPCS: 99283; Z7502

== ENCOUNTER 2022-05-20 14:31 | Emergency (ER) | payer MEDICARE, OTHER ==
[~2022-05-20] VITALS: Ht 185.4 cm; Wt 81.8 kg
[2022-05-20 14:42] VITALS: BP 150/89
== END 2022-05-20 15:17 | disposition left against medical advice (07) ==
LOC: EMS 14:34
DX: T40.601A Poisoning by unspecified narcotics, accidental (unintentional), initial encounter (principal); E78.00 Pure hypercholesterolemia, unspecified; F20.9 Schizophrenia, unspecified; F17.210 Nicotine dependence, cigarettes, uncomplicated; F15.90 Other stimulant use, unspecified, uncomplicated; F12.90 Cannabis use, unspecified, uncomplicated; Z59.00 Homelessness unspecified; Z87.09 Personal history of other diseases of the respiratory system; Z88.8 Allergy status to other drugs, medicaments and biological substances; Y92.89 Other specified places as the place of occurrence of the external cause
CPT/HCPCS: 82962; 93005; 99284